=== PATIENT | female | born 1960 | race Caucasian/White ===

== ENCOUNTER 2017-03-17 00:23 | Day surgery (SDC) | payer OTHER ==
[~2017-03-17 00:23] MED LIST: ALBU90OI INH; ALBU90OI6 INH; BACL10 PO; CLOT1SO TOP; CYCL10 PO; DOC250 PO; DOXE10 PO; FOLI1; GABA600 PO; GEMF600; HYDPAM50 PO; HYDR1TAB94 PO; IBUP600 PO; MELO7.5; METTREX2.5 PO; MOMENI; MORP15ER PO; Mobic15 MG PO; Morphine Sulfat15 MG PO; OMEG1CAP30 PO; OMEP40CA12 PO; Omeprazole20 M1; PARO30 PO; Phentermine HCl15 MG PO; Premarin0.3 MG; Premarin0.3 MG PO; Remicade100 MG IV; TEMOVATE TOP; TRIA80TC TOP
[2017-12-16] MEDS ORDERED: CYCL10 PO (11:59)
[2017-12-16] MEDS ORDERED: KETO10 PO (11:59)
[2017-12-16] MEDS ORDERED: HYDR1TAB94 PO (11:59)
[2018-02-14] MEDS ORDERED: DICL75ER PO (10:07)
[2018-02-14] MEDS ORDERED: DOXE10 PO (10:08)
[2018-02-14] MEDS ORDERED: TRIA15CR3 (10:08)
== END 2017-03-17 16:40 | disposition home or self-care (01) ==
LOC: ATC 00:23
DX: L40.0 Psoriasis vulgaris (principal); Z79.899 Other long term (current) drug therapy
CPT/HCPCS: 96413; 96415; J1745; J7050; Q5102-ZB

== ENCOUNTER 2017-04-30 01:03 | Day surgery (SDC) | payer OTHER | END 2017-04-30 12:57 | disposition home or self-care (01) | LOC: ATC 01:03 | DX: L40.0 Psoriasis vulgaris (principal) | CPT/HCPCS: 96413; 96415; J1745; J7050; Q5102-ZB ==

== ENCOUNTER 2017-06-11 00:21 | Day surgery (SDC) | payer OTHER | END 2017-06-11 11:36 | disposition home or self-care (01) | LOC: ATC 00:21 | DX: L40.0 Psoriasis vulgaris (principal) | CPT/HCPCS: 96413; 96415; J1745; J7050 ==

== ENCOUNTER 2017-08-07 15:17 | Emergency (ER) | payer OTHER ==
[~2017-08-07] VITALS: Ht 167.6 cm; Wt 88.5 kg
[2017-08-07] MEDS ORDERED: Mobic15 MG PO (15:26)
[2017-08-07] MEDS ORDERED: Prinivil10 MG PO (15:26)
[2017-08-07] MEDS ORDERED: HYDPAM50 PO (15:27)
[2017-08-07] MEDS ORDERED: OMEPRAZOLE MAGN20 MG PO (15:27)
[2017-08-07 15:52] LABS: BASOPHILS ABSOLUTE AUTO 0.08 K/mm3 (0.00-0.23); BASOPHILS PERCENT AUTO 1 % (0-2); EOSINOPHILS PERCENT AUTO 2 % (0-6); Hematocrit 34.7 % (33.0-51.0); Hemoglobin 11.1 g/dL (11.5-16.0); IMMATURE GRAN ABSOLUTE AUTO 0.06 K/mm3 (0.00-0.10); IMMATURE GRAN PERCENT AUTO 1 % (0-1); LYMPHOCYTES ABSOLUTE AUTO 2.93 K/mm3 (0.84-5.20); LYMPHOCYTES PERCENT AUTO 23 % (21-46); MONOCYTES ABSOLUTE AUTO 1.31 K/mm3 (0.16-1.47); MONOCYTES PERCENT AUTO 10 % (4-13); Mean Corpuscular HGB 30.7 pg (26.0-34.0); Mean Corpuscular Volume 96 fL (80-100); NEUTROPHILS ABSOLUTE AUTO 8.29 K/mm3 (1.96-9.15); NEUTROPHILS PERCENT AUTO 64 % (41-73); Platelet Count 420 K/mm3 (150-400); RDW Coefficient Variation 14.8 % (11.7-14.2); Red Blood Cell Count 3.61 M/mm3 (3.80-5.20); White Blood Cell Count 12.87 K/mm3 (4.00-11.30)
[2017-08-07 16:05] LABS: Alanine Aminotransfer (ALT/SGP 70 U/L (12-78); Albumin, Blood 3.6 g/dL (3.4-5.0); Albumin/Globulin Ratio 1.1 (0.8-1.8); Alk Phos 142 U/L (50-136); Anion Gap 7 mmol/L (6-16); Aspartate Aminotrans (AST/SGOT 79 U/L (12-37); Bilirubin, Total 0.2 mg/dL (0.1-1.0); Blood Urea Nitrogen 22 mg/dL (8-24); Bun/Creatinine Ratio 15.7 (12.0-20.0); CO2, Blood 27 mmol/L (21-32); Calcium, Blood 8.4 mg/dL (8.5-10.1); Chloride, Blood 107 mmol/L (98-108); Globulin, Blood 3.4 g/dL (2.2-4.0); Glomerular Filtration Rate 41 (60-); Glucose, Blood 111 mg/dL (70-99); Potassium, Blood 4.1 mmol/L (3.5-5.5); Sodium, Blood 141 mmol/L (136-145)
[2017-08-07 16:37] LABS: Troponin I <0.015 ng/mL (0.000-0.040)
[2017-08-07 17:20] LABS: Source, Urine Clean Catch
[2017-08-07 17:25] LABS: Appearance, Urine Clear (Clear); Bilirubin, Urine Neg (Neg); Blood, Urine Neg (Neg); Color, Urine Yellow (P-Yellow); Glucose Qualitative, Urine Neg (Neg); Ketones, Urine Neg (Neg); Leukocyte Esterase, Urine 2+ (Neg); Nitrite, Urine Pos (Neg); Protein, Urine 2+ (Neg); Urobilinogen, Urine NORM (Normal)
[2017-08-07 17:35] LABS: Bacteria Many /hpf; Red Blood Cells, Urine 0-2 /hpf (0-2); Squamous Epithelial Cells Few /hpf (Few)
[2017-08-07] MEDS ORDERED: Bactrim Ds Tab1 EACH PO (18:00)
== END 2017-08-07 18:34 | disposition home or self-care (01) ==
LOC: ER 15:17
PROVIDERS: Emergency Medicine; Physician Assistant
DX: N39.0 Urinary tract infection, site not specified (principal); R55 Syncope and collapse; I10 Essential (primary) hypertension; K21.9 Gastro-esophageal reflux disease without esophagitis; E78.00 Pure hypercholesterolemia, unspecified; Z88.0 Allergy status to penicillin; Z79.899 Other long term (current) drug therapy
CPT/HCPCS: 36415; 80053; 81001; 84484; 85025; 87077; 87086; 87186; 93005; 93010; 96360; 96361; 99283; J7030

== ENCOUNTER 2017-09-02 14:44 | Emergency (ER) | payer OTHER ==
[~2017-09-02] VITALS: Ht 165.1 cm; Wt 89.4 kg
[~2017-09-02 14:44] MED LIST changes: +Bactrim Ds Tab1 EACH PO; +OMEPRAZOLE MAGN20 MG PO; +Prinivil10 MG PO
[2017-09-02] MEDS ORDERED: CYCL10 PO (15:28)
== END 2017-09-02 15:37 | disposition home or self-care (01) ==
LOC: ER 14:44
DX: M54.5 Low back pain (principal); Z88.0 Allergy status to penicillin; Z79.899 Other long term (current) drug therapy; Z79.891 Long term (current) use of opiate analgesic
CPT/HCPCS: 96372; 99283; J1885

== ENCOUNTER 2017-10-22 00:31 | Day surgery (SDC) | payer OTHER | END 2017-10-22 12:20 | disposition home or self-care (01) | LOC: ATC 00:31 | DX: L40.0 Psoriasis vulgaris (principal) | CPT/HCPCS: J1745; J7050 ==

== ENCOUNTER 2018-03-30 00:02 | Day surgery (SDC) | payer OTHER ==
[~2018-03-30 00:02] MED LIST changes: +DICL75ER PO; +KETO10 PO; +TRIA15CR3
== END 2018-03-30 11:31 | disposition home or self-care (01) ==
LOC: ATC 00:02
DX: L40.0 Psoriasis vulgaris (principal)
CPT/HCPCS: 96413; 96415; J1745; J7050

== ENCOUNTER 2018-05-12 05:20 | Day surgery (SDC) | payer OTHER | END 2018-05-12 16:20 | disposition home or self-care (01) | LOC: ATC 05:20 | DX: L40.0 Psoriasis vulgaris (principal) | CPT/HCPCS: 96413; 96415; J1745; J7050 ==

== ENCOUNTER 2018-06-22 00:30 | Day surgery (SDC) | payer OTHER | END 2018-06-22 16:37 | disposition home or self-care (01) | LOC: ATC 00:30 | DX: L40.0 Psoriasis vulgaris (principal); Z88.0 Allergy status to penicillin | CPT/HCPCS: 96413; 96415; J1745; J7050 ==

== ENCOUNTER → 2018-08-08 | Outpatient (CLI) | payer OTHER ==
[~2018-08-08] MED LIST changes: +BACI500TO TOP; +Cleocin HCl300 MG PO; +PERIDEX15 ML MM
== END ==
LOC: LAB UCHC 07:00 → LAB SHORT 07:00 → LAB 07:00 → EDSTATUS 08-05 12:50 → LAB FUT 08-05 12:50
DX: R19.7 Diarrhea, unspecified (principal)
CPT/HCPCS: 87493

== ENCOUNTER 2018-08-30 16:54 | Inpatient (IN) | payer OTHER ==
[~2018-08-30] VITALS: Ht 165.1 cm; Wt 95.7 kg
[~2018-08-30 16:54] MED LIST changes: +FLUC200 PO; -FOLI1; +FOLI1 PO; -GABA600 PO; -GEMF600; +GEMF600 PO; +Neurontin400 MG PO
[2018-08-30 17:26] LABS: Hematocrit 25.8 % (33.0-51.0); Hemoglobin 7.5 g/dL (11.5-16.0); Mean Corpuscular HGB 23.7 pg (26.0-34.0); Mean Corpuscular HGB Conc 29.1 g/dL (31.5-36.5); Mean Corpuscular Volume 81 fL (80-100); Mean Platelet Volume 11.1 fL (9.1-12.4); Platelet Count 259 K/mm3 (150-400); RDW Standard Deviation 66.9 fL (35.1-46.3); Red Blood Cell Count 3.17 M/mm3 (3.80-5.20); White Blood Cell Count 1.19 K/mm3 (4.00-11.30)
[2018-08-30 17:49] LABS: Albumin, Blood 2.5 g/dL (3.4-5.0); Albumin/Globulin Ratio 0.6 (0.8-1.8); Bilirubin, Total 0.2 mg/dL (0.1-1.0); Bun/Creatinine Ratio 8.9 (12.0-20.0); Calcium, Blood 8.5 mg/dL (8.5-10.1); Creatinine, Blood 2.71 mg/dL (0.40-1.00); Free Thyroxine 1.15 ng/dL (0.70-1.60); Magnesium, Blood 2.8 mg/dL (1.6-2.4); Potassium, Blood 3.7 mmol/L (3.5-5.5); Total Protein, Blood 6.5 g/dL (6.4-8.2)
[2018-08-30 17:53] LABS: Thyroid Stimulating Hormone 0.218 uIU/mL (0.360-4.800)
[2018-08-30 18:31] LABS: BASOPHILS PERCENT MAN 0 % (0-2); EOSINOPHILS ABSOLUTE MAN 0.32 K/mm3 (0.00-0.68); EOSINOPHILS PERCENT MAN 27 % (0-6); LYMPHOCYTES ABSOLUTE MAN 0.79 K/mm3 (0.84-5.20); LYMPHOCYTES PERCENT MAN 67 % (21-46); MONOCYTES ABSOLUTE MAN 0.01 K/mm3 (0.16-1.47); MONOCYTES PERCENT MAN 1 % (4-13); MYELOCYTE ABSOLUTE MAN 0.01 K/mm3 (0.00-0.00); MYELOCYTE PERCENT MAN 1 % (0-0); NEUTROPHILS ABSOLUTE MAN 0.04 K/mm3 (1.96-9.15); SEG NEUTROPHILS PERCENT MAN 4 % (41-73); TOTAL CELLS COUNTED 100
[2018-08-30 20:40] LABS: RETIC HGB EQUIVALENT 19.6 pg (28.20-36.60); RETICULOCYTE ABSOLUTE 0.0641 M/mm3 (0.0200-0.1100); RETICULOCYTE COUNT PERCENT 2.06 % (0.50-2.50)
[2018-08-30 20:45] LABS: Source, Urine Clean Catch
[2018-08-30 20:48] LABS: Blood, Urine Neg (Neg); Glucose Qualitative, Urine Neg (Neg); Ketones, Urine 1+ (Neg); Leukocyte Esterase, Urine 1+ (Neg); Nitrite, Urine Neg (Neg); Protein, Urine 2+ (Neg); Urobilinogen, Urine 1+ (Normal)
[2018-08-30 20:49] LABS: Bilirubin, Urine 1+ (Neg)
[2018-08-30 20:52] LABS: Percent Saturation 3.9 % (15.0-50.0)
[2018-08-30 20:57] LABS: International Normalized Ratio 1.32; Prothrombin Time Results 13.6 Sec (9.7-11.5)
[2018-08-30 21:01] LABS: Uric Acid, Blood 6.5 mg/dL (2.6-6.0)
[2018-08-30 21:02] LABS: U Amphetamine Screen Not Detected; U Methamphetamine Screen Not Detected; U Opiates Screen DETECTED
[2018-08-30 21:03] LABS: U Barbituate Screen Not Detected; U Benzodiazapine Screen Not Detected; U Buprenorphine Screen Not Detected; U Cannabinoids Screen Not Detected; U Cocaine Screen Not Detected; U Methadone Screen Not Detected; U Oxycodone Screen Not Detected; U Phencyclidine Screen Not Detected; U Propoxyphene Screen Not Detected
[2018-08-30 21:04] LABS: Appearance, Urine Hazy (Clear); Color, Urine Yellow (P-Yellow)
[2018-08-30 21:06] LABS: Red Blood Cells, Urine Not Seen /hpf (0-2); Squamous Epithelial Cells Few /hpf (Few)
[2018-08-30 21:08] LABS: Bacteria Few /hpf
[2018-08-30 21:54] LABS: Triiodothyronine, Free 1.06 pg/mL (2.18-3.98)
[2018-08-30 21:56] LABS: Phosphorus, Blood 4.2 mg/dL (2.5-4.9)
[2018-08-30 22:17] LABS: Hematocrit 27.1 % (33.0-51.0); Hemoglobin 7.7 g/dL (11.5-16.0)
--- NOTE | 2018-08-31 00:15 | NUR ---
AT 2340 PT ARRIVED TO ICU 12 FROM ER. ACCOMPANIED BY EXTENSION SERVICE ADVISOR VIVI. 1 UNIT OF PRBC'S BROUGHT WITH PT AND STARTED RIGHT AWAY. BLOOD PRESSURE 60'S/40'S. CALLED DR. ALEXANDRA AND LEVOPHED ORDERED. NARCAN WAS GIVEN AND PT IMMEDIATELY STARTED TWITCHING WITH FULL BODY. PT WAS A/O TO PERSON, PLACE, AND DATE WHEN SHE ARRIVED BUT AFTER NARCAN SHE IS CONFUSED AND UNABLE TO FOLLOW COMMANDS. DAUGHTER AT BEDSIDE SAID THIS WAS A SIMILAR REACTION THAT SHE HAD IN ER AFTER NARCAN. BP IMPROVES WELL.
[2018-08-31 01:19] LABS: Stool Occult Blood Guaiac 1 Neg (Neg)
--- NOTE | 2018-08-31 01:38 | NUR ---
PT RESTING QUIETLY NOW. STARTED LEVOPHED AT 4MCG/MIN. CVP WAS 20. DAUGHTER LEFT FOR A LITTLE BIT BUT WILL BE BACK.
[2018-08-31] MEDS ORDERED: Hydrocodone-Ap1 EA23 PO (02:16)
[2018-08-31] MEDS ORDERED: FLUC200 PO (02:23)
[2018-08-31 04:22] LABS: Hematocrit 26.1 % (33.0-51.0); Hemoglobin 7.7 g/dL (11.5-16.0); Mean Corpuscular HGB 24.3 pg (26.0-34.0); Mean Corpuscular HGB Conc 29.5 g/dL (31.5-36.5); Mean Corpuscular Volume 82 fL (80-100); Mean Platelet Volume 11.4 fL (9.1-12.4); NRBC ABSOLUTE 0.03 K/mm3 (0.00-0.02); NRBC Auto 2.6 /100 WBC (0.0-0.2); Platelet Count 367 K/mm3 (150-400); RDW Coefficient Variation 21.4 % (11.7-14.2); RDW Standard Deviation 63.3 fL (35.1-46.3); Red Blood Cell Count 3.17 M/mm3 (3.80-5.20); White Blood Cell Count 1.15 K/mm3 (4.00-11.30)
[2018-08-31 04:40] LABS: Albumin, Blood 1.9 g/dL (3.4-5.0); Albumin/Globulin Ratio 0.6 (0.8-1.8); Bilirubin, Total 0.3 mg/dL (0.1-1.0); Bun/Creatinine Ratio 10.6 (12.0-20.0); Calcium, Blood 7.4 mg/dL (8.5-10.1); Creatinine, Blood 2.07 mg/dL (0.40-1.00); Globulin, Blood 3.3 g/dL (2.2-4.0); Potassium, Blood 3.5 mmol/L (3.5-5.5); Total Protein, Blood 5.2 g/dL (6.4-8.2)
[2018-08-31 04:51] LABS: BAND PERCENT MAN 4 % (0-8); BASOPHILS ABSOLUTE MAN 0.01 K/mm3 (0.00-0.23); BASOPHILS PERCENT MAN 1 % (0-2); EOSINOPHILS ABSOLUTE MAN 0.17 K/mm3 (0.00-0.68); EOSINOPHILS PERCENT MAN 15 % (0-6); LYMPHOCYTES ABSOLUTE MAN 0.59 K/mm3 (0.84-5.20); LYMPHOCYTES PERCENT MAN 52 % (21-46); MONOCYTES ABSOLUTE MAN 0.31 K/mm3 (0.16-1.47); MONOCYTES PERCENT MAN 27 % (4-13); NEUTROPHILS ABSOLUTE MAN 0.05 K/mm3 (1.96-9.15); SEG NEUTROPHILS PERCENT MAN 1 % (41-73); TOTAL CELLS COUNTED 100
--- NOTE | 2018-08-31 06:25 | NUR ---
SUMMARY PT RESTING IN BED. A/O TO PERSON, PLACE, EVENT, AND TIME. ABLE TO USE THE BEDPAN. PT WAS CONFUSED AND THRASHING AROUND EARLIER IN THE NIGHT AFTER RECEIVING NARCAN. PT HAS TWITCHING SPASMS OF WHOLE BODY. PT STATES THIS HAS BEEN HAPPENING FOR AWHILE AT HOME ALONG WITH MUSCLE WEAKNESS. RECEIVED ONE UNIT OF PRBC'S. ON LEVOPHED AT 4 MCG/MIN FOR HYPOTENSION. ATTEMPTED TO TITRATE DOWN BUT BP DROPS QUICKLY. NO SIGN OF DISTRESS AT THE MOMENT.
--- NOTE | 2018-08-31 08:04 | NUR ---
ASSUMED CARE ASSUMED CARE OF PT AT 0700. REPORT RECEIVED FROM SABAS WEBB. PT SLEEPING, AROUSES EASILY TO VERBAL STIMULUS. PT ORIENTED X3 WHEN AWAKE. PT NOTED TO HAVE SIGNIFICANT TWITCHING OF UPPER AND LOWER EXTREMITIES EVERY COUPLE OF MINUTES. PT STATES THIS IS NOT NORMAL FOR HER AND HAS BEEN GOING ON "FOR A COUPLE OF DAYS". PT DENIES ANY PAIN, NAUSEA OR DYSPNEA. PUPILS 6MM CAIT, EQUAL AND REACTIVE TO LIGHT. MONITOR SHOWS SINUS RHYTHM WITH HR 60'S. BP 90-100 SYSTOLIC WITH LEVOPHED GTT 2MCG/MIN - PLAN TO TITRATE TO MAINTAIN MAP >65. BT'S VERY HYPOACTIVE T/O. PT DENIES ABDOMINAL PAIN WITH PALPATION. WEBBER CATH IN PLACE DRAINING JAVAD URINE TO GRAVITY. SKIN OVERALL C/D/I - NOTED CHRONIC DEFORMITY OF RIGHT LOWER LEG. PT HAS LEFT SUBCLAVIAN CL WITH LEVOPHED GTT, NS AT 150ML/HR. PIV X2 SL. PT'S DAUGHTER CONCHITA AT BEDSIDE. CALL LIGHT WITHIN REACH OF PT. WILL CONTINUE TO MONITOR PT CLOSELY.
--- NOTE | 2018-08-31 08:36 | NUR ---
LEVOPHED PLACED ON STANDBY AT THIS TIME.
--- NOTE | 2018-08-31 09:00 | NUR ---
DR. MATTHEW CASTRO ROUNDED ON PT. DISCUSSED PLAN OF CARE WITH PT AND PT'S DAUGHTER AT BEDSIDE. NEW ORDERS RECEIVED FOR AN ADDITIONAL UNIT OF BLOOD, ALBUMIN AND CALCIUM.
[2018-08-31 09:01] LABS: Performing Lab SYMBIODX; Test Name FLOW
[2018-08-31] MEDS ORDERED: DOXE10 PO (10:53)
[2018-08-31 11:01] LABS: PCO2 Arterial 34.5 mmHg (35-45); PO2 Arterial 88.8 mmHg (80-100); pH Blood Arterial 7.36 (7.35-7.45)
[2018-08-31] MEDS ORDERED: ALBU90OI61 INH (11:02)
--- NOTE | 2018-08-31 14:48 | NUR ---
PHYSICAL THERAPY HERE WORKING WITH PT.
[2018-08-31 18:22] LABS: Hematocrit 26.9 % (33.0-51.0); Hemoglobin 8.4 g/dL (11.5-16.0); Mean Corpuscular HGB 25.1 pg (26.0-34.0); Mean Corpuscular HGB Conc 31.2 g/dL (31.5-36.5); Mean Corpuscular Volume 80 fL (80-100); Mean Platelet Volume 10.7 fL (9.1-12.4); NRBC Auto 5.4 /100 WBC (0.0-0.2); Platelet Count 452 K/mm3 (150-400); RDW Coefficient Variation 21.2 % (11.7-14.2); RDW Standard Deviation 60.4 fL (35.1-46.3); Red Blood Cell Count 3.35 M/mm3 (3.80-5.20); White Blood Cell Count 1.85 K/mm3 (4.00-11.30)
--- NOTE | 2018-08-31 18:41 | NUR ---
SHIFT SUMMARY PT CONTINUES TO BE ALERT AND ORIENTED, VISITING WITH FAMILY MEMBERS AT BEDSIDE T/O SHIFT. VITALS CONTINUE TO BE STABLE - LEVOPHED OFF SINCE ~0900 THIS MORNING WITH MAP MAINTAINING >65. PT HAD A COUPLE LOOSE BROWN BM'S - STOOL SENT FOR CULTURE. PT TOLERATING CLEAR LIQUID DIET WELL. WEBBER PUT OUT 400 ML DARK YELLOW URINE TO GRAVITY. NS CONTINUES TO INFUSE AT 150ML/HR TO LEFT SUBCLAVIAN CL. PT CONTINUES TO HAVE INTERMITTENT EXTREMITY TWITCHING WHEN AWAKE - NO TWITCHING NOTED WHEN PT SLEEPING. WILL CONTINUE TO MONITOR PT AND GIVE HANDOFF REPORT TO ONCOMING RN WHEN AVAILABLE.
[2018-08-31 19:19] LABS: BAND PERCENT MAN 12 % (0-8); BASOPHILS PERCENT MAN 0 % (0-2); EOSINOPHILS ABSOLUTE MAN 0.03 K/mm3 (0.00-0.68); EOSINOPHILS PERCENT MAN 2 % (0-6); LYMPHOCYTES PERCENT MAN 38 % (21-46); METAMYELOCYTE ABSOLUTE MAN 0.07 K/mm3 (0.00-0.00); METAMYELOCYTE PERCENT MAN 4 % (0-0); MONOCYTES ABSOLUTE MAN 0.55 K/mm3 (0.16-1.47); MONOCYTES PERCENT MAN 30 % (4-13); MYELOCYTE ABSOLUTE MAN 0.03 K/mm3 (0.00-0.00); MYELOCYTE PERCENT MAN 2 % (0-0); NEUTROPHILS ABSOLUTE MAN 0.44 K/mm3 (1.96-9.15); SEG NEUTROPHILS PERCENT MAN 12 % (41-73); TOTAL CELLS COUNTED 50
--- NOTE | 2018-08-31 19:56 | NUR ---
PT RESTING IN BED. PT IS A/O X4. STILL HAS SOME MUSCLE TWITCHING BUT HAS IMPROVED SINCE LAST NIGHT. PT USED THE BEDPAN AND HAS LIQUID BROWN STOOL. DAUGHTER AT BEDSIDE. NO SIGN OF DISTRESS.
--- NOTE | 2018-09-01 05:55 | NUR ---
SUMMARY PT RESTING IN BED. A/O X4. C/O PAIN IN BACK AND HIPS. GAVE FENTANYL PT STATES TYLENOL DOES NOT WORK FOR HER. PT HAS BEEN INCONTINENT OF STOOL DURING THE NIGHT. MOVES SELF AROUND IN BED WITHOUT DIFFICULTY. VSS. NO SIGN OF DISTRESS. NO ACUTE CHANGES.
--- NOTE | 2018-09-01 07:45 | NUR ---
INITIAL ASSESSMENT PATIENT RESTING QUIETLY IN BED, WATCHING TV UPON ENTERING ROOM. PATIENT PLEASANT AND COOPERATIVE. PATIENT ALERT AND ORIENTED X 4, AFEBRILE. PATIENT STATES SHE HAS CHRONIC HIP, BACK AND LEG PAIN. PATIENT ALSO COMPLAINS OF SORE THROAT. PATIENT ON CLEAR LIQUID DIET. PATIENT DOES NOT HAVE HER DENTURES WITH HER "WAS TOLD NOT TO WEAR THEM WHILE HER ORAL THRUSH WAS BEING TREATED". PATIENT ASKED IF SHE FELT LIKE SHE COULD TOLERATED SOFT DIET WITHOUT HER DENTURES AND SHE STATED THAT SHE COULD EAT A SOFT DIET BUT DIDN'T KNOW IF HER THROAT COULD TOLERATE IT BECAUSE OF HOW SORE IT IS. PATIENT WEAK. PATIENT HAS OLD INJURY TO R LEG THAT MAKES THE LEMUS BONE CURVE ANTERIORLY. PATIENT DECREASED FROM 2 L NC TO RA AND REMAINS SATTING 90% AND GREATER. PATIENT HAS MOIST, PRODUCTIVE COUGH, PRODUCING SMALL AMOUNT OF THICK, YELLOW SPUTUM. LUNGS CLEAR IN UPPER LOBES AND COARSE IN LOWER LOBES. PATIENT IN SR, HR 70S TO 80S. BP STABLE. SCDS IN PLACE. ABDOMEN MILDLY DISTENDED, SOFT, TENDER, WITH NORMOACTIVE BS. PATIENT HAS BEEN HAVING LIQUID STOOLS. WEBBER REMOVED THIS AM. CLEAN ATTENDS IN PLACE. URINE DARK YELLOW IN COLOR. NS INFUSING AT 150 MLS/ HOUR. BED LOW, CALL LIGHT IN REACH. WILL CONTINUE TO MONITOR PATIENT FREQUENTLY THROUGHOUT SHIFT.
[2018-09-01 08:24] LABS: Albumin, Blood 2.1 g/dL (3.4-5.0); Albumin/Globulin Ratio 0.7 (0.8-1.8); Bilirubin, Total 0.3 mg/dL (0.1-1.0); Bun/Creatinine Ratio 15.8 (12.0-20.0); Calcium, Blood 8.2 mg/dL (8.5-10.1); Creatinine, Blood 1.33 mg/dL (0.40-1.00); Globulin, Blood 3.2 g/dL (2.2-4.0); Potassium, Blood 3.9 mmol/L (3.5-5.5); Total Protein, Blood 5.3 g/dL (6.4-8.2)
[2018-09-01 08:30] LABS: Hematocrit 29.4 % (33.0-51.0); Hemoglobin 9.3 g/dL (11.5-16.0); Mean Corpuscular HGB 25.1 pg (26.0-34.0); Mean Corpuscular HGB Conc 31.6 g/dL (31.5-36.5); Mean Corpuscular Volume 80 fL (80-100); Mean Platelet Volume 10.5 fL (9.1-12.4); NRBC ABSOLUTE 0.13 K/mm3 (0.00-0.02); NRBC Auto 1.9 /100 WBC (0.0-0.2); Platelet Count 572 K/mm3 (150-400); RDW Coefficient Variation 22.2 % (11.7-14.2); RDW Standard Deviation 61.4 fL (35.1-46.3); White Blood Cell Count 6.86 K/mm3 (4.00-11.30)
[2018-09-01 09:03] LABS: BAND PERCENT MAN 9 % (0-8); BASOPHILS PERCENT MAN 0 % (0-2); EOSINOPHILS ABSOLUTE MAN 0.13 K/mm3 (0.00-0.68); EOSINOPHILS PERCENT MAN 2 % (0-6); LYMPHOCYTES % ATYPICAL MANUAL 1 % (0-0); LYMPHOCYTES PERCENT MAN 21 % (21-46); METAMYELOCYTE ABSOLUTE MAN 0.48 K/mm3 (0.00-0.00); METAMYELOCYTE PERCENT MAN 7 % (0-0); MONOCYTES ABSOLUTE MAN 1.02 K/mm3 (0.16-1.47); MONOCYTES PERCENT MAN 15 % (4-13); NEUTROPHILS ABSOLUTE MAN 3.43 K/mm3 (1.96-9.15); SEG NEUTROPHILS PERCENT MAN 41 % (41-73); TOTAL CELLS COUNTED 100
[2018-09-01 09:04] LABS: MYELOCYTE ABSOLUTE MAN 0.27 K/mm3 (0.00-0.00); MYELOCYTE PERCENT MAN 4 % (0-0)
--- NOTE | 2018-09-01 09:47 | NUR ---
PT IN ROOM WORKING WITH PATIENT.
--- NOTE | 2018-09-01 12:38 | NUR ---
PATIENT SITTING UP EATING LUNCH IN BED. NO COMPLAINTS. AFEBRILE. PATIENT REMAINS ALERT AND ORIENTED X 4. PATIENT 1 PERSON ASSIST WITH WALKER. PATIENT USES WALKER AT HOME. PATIENT REMAINS SATTING 90% AND GREATER ON RA. PATIENT COUGHING UP MODERATE AMOUNT OF THICK, YELLOW SPUTUM. PATIENT REMAINS IN SR, HR 70S TO 80S. BP STABLE. PATIENT HAS MECHANICAL SOFT DIET FOR LUNCH. PATIENT HAS NOT YET VOIDED SINCE WEBBER REMOVAL. WILL BLADDER SCAN AT 1400 IF STILL HAS NOT VOIDED. CENTRAL LINE DC'D. NS INFUSING AT 100 MLS/ HOUR. NO OTHER ACUTE CHANGES TO NOTE ON AT THIS TIME. WILL CONTINUE TO MONITOR.
--- NOTE | 2018-09-01 14:25 | NUR ---
OT IN WORKING WITH PATIENT.
--- NOTE | 2018-09-01 14:42 | NUR ---
SHIFT SUMMARY PATIENT HAS REMAINED ALERT AND ORIENTED THIS SHIFT. AFEBRILE. PATIENT WEAK BUT IS GAINING STRENGTH. PATIENT 1 PERSON ASSIST WITH FWW. PATIENT HAS COMPLAINED OF CHRONIC PAIN IN BACK, LEGS AND HIPS. PATIENT BEING GIVEN PRESCRIBED PAIN MEDICATIONS. PATIENT DECREASED FROM 2 L NC TO RA AT BEGINNING OF THE SHIFT AND HAS REMAINED SATTING 90% AND GREATER. PATIENT HAS BEEN COUGHING UP MODERATE AMOUNTS OF THICK, YELLOW SPUTUM. PATIENT HAS REMAINED IN SR, HR 60S TO 80S. BP HAS REMAINED STABLE. ABDOMEN REMAINS MILDLY DISTENDED, SOFT, TENDER, WITH NORMOACTIVE BS. PATIENT HAS HAD 3 LIQUID STOOLS THIS SHIFT. PATIENT INCREASED TO MECHANICAL SOFT DIET FROM CLEAR LIQUID AND IS TOLERATING WELL. WEBBER REMOVED THIS AM. PATIENT IS NOW VOIDING DARK YELLOW URINE INTO BSC WITH NURSE ASSISTANCE. NS INFUSING AT 100 MLS/ HOUR. PATIENT OOB TO CHAIR THIS SHIFT AND ALSO RECEIVED COMPLETE BED BATH. PT AND OT HAVE BOTH SEEN PATIENT. PATIENT'S DAUGHTER ALSO HERE TO CHECK IN. PATIENT HAS NO COMPLAINTS AT THIS TIME. PATIENT WILL BE TRANSFERRING TO MEDICAL FLOOR, ROOM 363 SHORTLY. PATIENT'S DAUGHTER, SCOTT, HAS TRIED BEEN NOTIFIED- DID NOT ANSWER AND HAS FULL INBOX. REPORT HAS BEEN GIVEN TO ASSUMING MEDICAL FLOOR RN.
[2018-09-01 15:13] LABS: Result SEE LABOUT RESULTS
--- NOTE | 2018-09-01 15:30 | NUR ---
PATIENT TRANSFERRED TO MEDICAL FLOOR BY DIRECTOR PROFESSIONAL SERVICES.
--- NOTE | 2018-09-01 19:20 | NUR ---
SHIFT SUMMARY PATIENT A&O. C/O CHRONIC PAIN TO HIPS/BACK, RN MEDICATED PER E MAY. DENIES SOB OR NAUSEA. ON RA. PATIENT REPOSITIONS SELF IN BED. SCDS ON. FLUIDS RUNNING. BED ALARM IS IN PLACE. NO ACUTE CHANGES. REPORT GIVEN TO GRADUATE RESEARCH ASSISTANT RN.
--- NOTE | 2018-09-02 04:21 | NUR ---
SHIFT SUMMARY: 58 Y/O FEMALE RESTED COMFORTABLY ALL EVENING. PT FELT RELIEF FROM BACK PAIN WITH MS CONTIN 15 MG PO. PT DENIES NAUSEA. PT HAPPY AND COOPERATIVE DURING ASSESSMENT. PTS BILATERAL HAND ARCHITECTURE INTERN/FOOT PUSH AND PULLS WEAK AND EQUAL. PTS BED LOW POSITION, CALL LIGHT AT SIDE.
[2018-09-02 04:42] LABS: Hematocrit 34.3 % (33.0-51.0); Hemoglobin 10.9 g/dL (11.5-16.0); Mean Corpuscular HGB 24.8 pg (26.0-34.0); Mean Corpuscular HGB Conc 31.8 g/dL (31.5-36.5); Mean Corpuscular Volume 78 fL (80-100); Mean Platelet Volume 10.1 fL (9.1-12.4); NRBC ABSOLUTE 0.21 K/mm3 (0.00-0.02); NRBC Auto 1.1 /100 WBC (0.0-0.2); Platelet Count 654 K/mm3 (150-400); RDW Coefficient Variation 23.3 % (11.7-14.2); RDW Standard Deviation 62.6 fL (35.1-46.3); Red Blood Cell Count 4.39 M/mm3 (3.80-5.20); White Blood Cell Count 18.73 K/mm3 (4.00-11.30)
[2018-09-02 05:04] LABS: Albumin, Blood 1.9 g/dL (3.4-5.0); Albumin/Globulin Ratio 0.6 (0.8-1.8); Bilirubin, Total 0.3 mg/dL (0.1-1.0); Bun/Creatinine Ratio 18.6 (12.0-20.0); Calcium, Blood 8.6 mg/dL (8.5-10.1); Creatinine, Blood 1.29 mg/dL (0.40-1.00); Globulin, Blood 3.3 g/dL (2.2-4.0); Potassium, Blood 3.5 mmol/L (3.5-5.5); Total Protein, Blood 5.2 g/dL (6.4-8.2)
[2018-09-02 05:35] LABS: BAND PERCENT MAN 3 % (0-8); BASOPHILS PERCENT MAN 0 % (0-2); EOSINOPHILS ABSOLUTE MAN 0.56 K/mm3 (0.00-0.68); EOSINOPHILS PERCENT MAN 3 % (0-6); LYMPHOCYTES ABSOLUTE MAN 3.37 K/mm3 (0.84-5.20); LYMPHOCYTES PERCENT MAN 18 % (21-46); METAMYELOCYTE ABSOLUTE MAN 1.49 K/mm3 (0.00-0.00); METAMYELOCYTE PERCENT MAN 8 % (0-0); MONOCYTES ABSOLUTE MAN 1.49 K/mm3 (0.16-1.47); MONOCYTES PERCENT MAN 8 % (4-13); MYELOCYTE ABSOLUTE MAN 2.06 K/mm3 (0.00-0.00); MYELOCYTE PERCENT MAN 11 % (0-0); NEUTROPHILS ABSOLUTE MAN 9.73 K/mm3 (1.96-9.15); SEG NEUTROPHILS PERCENT MAN 49 % (41-73); TOTAL CELLS COUNTED 65
--- NOTE | 2018-09-02 08:00 | NUR ---
PT PLEASANT COOP A/O. STATES PAIN IN HIP AND BACK. FIBROMYALGIA. MED PER EMAR. H/R REG, NO MURMER NOTED. NO TELE. LUNGS CLEAR, PT STATES YELLOW GREEN THICK SPUTUM OCCATIONAL COUGH. ON R.A. RESP EASY, UNLABORED. BT X4 LAST BM TODAY. STATES DIARRHEA LAST 2 MONTHS OR SO. SAMPLE TAKEN YEST. SPOKE TO DR CASTRO, SHE AWARE. VOIDS PER BATHROOM. SBA. FWW. BED IN LOW POSITION, CALL LITE IN REACH, CALLS APPROP
--- NOTE | 2018-09-02 18:27 | NUR ---
PT EATING AND DRINKING. FERMIN DC IV FLUIDS PER DR CASTRO
--- NOTE | 2018-09-02 18:46 | NUR ---
PT PLEASANT TODAY. AMBULATED TO SHOWER TODAY. STATES STOOD IN SHOWER FOR LONGER TIME TO LOOSEN FLEM. STATES DID HELP. ORDERS FOR [facility] START THIS ASHISH. IV FLUIDS STOPPED THIS ASHISH. NO OTHER CONCERNS AT THIS TIME. BED IN LOW POSITION ,CALL LITE IN REACH, CALLS APPROP
--- NOTE | 2018-09-03 04:29 | NUR ---
SHIFT SUMMARY: 58 Y/O FEMALE RESTED COMFORTABLY ALL SHIFT. PT HAD OCCASIONAL NON PRODUCTIVE COUGH WITH CEPACOL LOZENGE GIVEN WITH RELIEF FELT. PT ALERT AND ORIENTED X 4. PT HAD OVERALL UNEVENTALL NIGHT. PTS BED LOW POSITION, CALL LIGHT AT SIDE.
[2018-09-03 04:51] LABS: Hematocrit 32.4 % (33.0-51.0); Hemoglobin 10.3 g/dL (11.5-16.0); Mean Corpuscular HGB 24.6 pg (26.0-34.0); Mean Corpuscular HGB Conc 31.8 g/dL (31.5-36.5); Mean Corpuscular Volume 77 fL (80-100); Mean Platelet Volume 9.9 fL (9.1-12.4); NRBC ABSOLUTE 0.15 K/mm3 (0.00-0.02); NRBC Auto 0.4 /100 WBC (0.0-0.2); Platelet Count 498 K/mm3 (150-400); RDW Coefficient Variation 24.1 % (11.7-14.2); RDW Standard Deviation 65.1 fL (35.1-46.3); Red Blood Cell Count 4.19 M/mm3 (3.80-5.20)
[2018-09-03 05:20] LABS: Albumin, Blood 1.7 g/dL (3.4-5.0); Albumin/Globulin Ratio 0.5 (0.8-1.8); Bilirubin, Total 0.4 mg/dL (0.1-1.0); Bun/Creatinine Ratio 17.3 (12.0-20.0); Calcium, Blood 8.5 mg/dL (8.5-10.1); Creatinine, Blood 1.1 mg/dL (0.40-1.00); Globulin, Blood 3.3 g/dL (2.2-4.0); Potassium, Blood 4.2 mmol/L (3.5-5.5)
[2018-09-03 05:35] LABS: BAND PERCENT MAN 12 % (0-8); BASOPHILS PERCENT MAN 0 % (0-2); EOSINOPHILS PERCENT MAN 0 % (0-6); LYMPHOCYTES ABSOLUTE MAN 3.03 K/mm3 (0.84-5.20); LYMPHOCYTES PERCENT MAN 9 % (21-46); METAMYELOCYTE ABSOLUTE MAN 3.03 K/mm3 (0.00-0.00); METAMYELOCYTE PERCENT MAN 9 % (0-0); MONOCYTES ABSOLUTE MAN 3.03 K/mm3 (0.16-1.47); MONOCYTES PERCENT MAN 9 % (4-13); MYELOCYTE ABSOLUTE MAN 2.35 K/mm3 (0.00-0.00); MYELOCYTE PERCENT MAN 7 % (0-0); NEUTROPHILS ABSOLUTE MAN 22.24 K/mm3 (1.96-9.15); SEG NEUTROPHILS PERCENT MAN 54 % (41-73); TOTAL CELLS COUNTED 100
[2018-09-03 10:50] LABS: Adenovirus F 40/41 Not Detected (NOT DETECT); Astrovirus Not Detected (NOT DETECT); Campylobacter Sp Not Detected (NOT DETECT); Cryptosporidium Not Detected (NOT DETECT); Cyclospora Cayetanensis Not Detected (NOT DETECT); E. Coli O157 Not Detected (NOT DETECT); Entamoeba Histolytica Not Detected (NOT DETECT); Enteroaggregative E. coli-EAEC Not Detected (NOT DETECT); Enteropathogenic E. coli-EPEC Not Detected (NOT DETECT); Enterotoxigenic E. coli-ETEC Not Detected (NOT DETECT); Giardia Lamblia Not Detected (NOT DETECT); Norovirus GI/GII Not Detected (NOT DETECT); Plesiomonas Shigelloides Not Detected (NOT DETECT); Rotavirus A Not Detected (NOT DETECT); Salmonella Sp Not Detected (NOT DETECT); Sapovirus Not Detected (NOT DETECT); Shiga Toxin-prod E. coli-STEC Not Detected (NOT DETECT); Shigella/Enteroin E. coli-EIEC Not Detected (NOT DETECT); Vibrio Cholerae Not Detected (NOT DETECT); Vibrio Sp Not Detected (NOT DETECT); Yersinia Enterocolitica Not Detected (NOT DETECT)
--- NOTE | 2018-09-03 17:32 | NUR ---
PT AOX4 AND COOPERATIVE OF CARE. PT RESTS IN BED MOST OF THE DAY, BUT DOES A ONE PERSON ASSIST TO RESTROOM. STOOL TODAY WAS COLLECTED AND FOUND POSITIVE FOR CDIFF. PT PUT ON ISOLATION PRECAUTIONS. BACK PAIN TREATED PER EMAR, NO DISTRESS NOTED AT THIS TIME.
--- NOTE | 2018-09-04 04:51 | NUR ---
SHIFT SUMMARY: 58 Y/O FEMALE RESTED COMFORTABLY ALL SHIFT. PT HAD PAIN RELIEF WITH MS CONTIN 15 MG PO GIVEN FOR GENERALIZED ACHE. PT ABLE AMBULATE BATHROOM AND BACK WITH GAIT SLOW AND STEADY VIA WALKER. PT DENIES NAUSEA. PTS BED LOW POSITION, CALL LIGHT AT SIDE.
[2018-09-04 04:57] LABS: Hemoglobin 10.5 g/dL (11.5-16.0); Mean Corpuscular HGB Conc 31.8 g/dL (31.5-36.5); Mean Corpuscular Volume 79 fL (80-100); Mean Platelet Volume 9.8 fL (9.1-12.4); NRBC ABSOLUTE 0.11 K/mm3 (0.00-0.02); NRBC Auto 0.2 /100 WBC (0.0-0.2); Platelet Count 481 K/mm3 (150-400); RDW Coefficient Variation 24.4 % (11.7-14.2); RDW Standard Deviation 67.3 fL (35.1-46.3); White Blood Cell Count 45.07 K/mm3 (4.00-11.30)
[2018-09-04 05:16] LABS: Alanine Aminotransfer (ALT/SGP 10 U/L (12-78); Albumin, Blood 1.7 g/dL (3.4-5.0); Albumin/Globulin Ratio 0.5 (0.8-1.8); Alk Phos 119 U/L (50-136); Anion Gap 7 mmol/L (6-16); Aspartate Aminotrans (AST/SGOT 25 U/L (12-37); Bilirubin, Total 0.3 mg/dL (0.1-1.0); Blood Urea Nitrogen 17 mg/dL (8-24); Bun/Creatinine Ratio 17.1 (12.0-20.0); CO2, Blood 23 mmol/L (21-32); Calcium, Blood 7.9 mg/dL (8.5-10.1); Chloride, Blood 108 mmol/L (98-108); Globulin, Blood 3.1 g/dL (2.2-4.0); Glomerular Filtration Rate >60 (60-); Glucose, Blood 86 mg/dL (70-99); Magnesium, Blood 1.5 mg/dL (1.6-2.4); Potassium, Blood 3.6 mmol/L (3.5-5.5); Sodium, Blood 138 mmol/L (136-145); Total Protein, Blood 4.8 g/dL (6.4-8.2)
[2018-09-04 05:57] LABS: BASOPHILS PERCENT MAN 0 % (0-2); EOSINOPHILS ABSOLUTE MAN 0.45 K/mm3 (0.00-0.68); EOSINOPHILS PERCENT MAN 1 % (0-6); LYMPHOCYTES ABSOLUTE MAN 7.21 K/mm3 (0.84-5.20); LYMPHOCYTES PERCENT MAN 16 % (21-46); METAMYELOCYTE PERCENT MAN 2 % (0-0); MONOCYTES PERCENT MAN 6 % (4-13); MYELOCYTE ABSOLUTE MAN 0.45 K/mm3 (0.00-0.00); MYELOCYTE PERCENT MAN 1 % (0-0); NEUTROPHILS ABSOLUTE MAN 31.99 K/mm3 (1.96-9.15); SEG NEUTROPHILS PERCENT MAN 71 % (41-73); TOTAL CELLS COUNTED 100
[2018-09-04 06:53] LABS: PROMYELOCYTE ABSOLUTE MAN 1.35 K/mm3 (0.00-0.00); PROMYELOCYTE PERCENT MAN 3 % (0-0)
--- NOTE | 2018-09-04 17:26 | NUR ---
SHIFT SUMMARY. A&OX4, SBA TO BATHROOM. PT CONTINUES WITH LOOSE/LIQUID STOOLS. PT REPORTS GENERALIZED PAIN THAT IS MANAGED WELL WITH CURRENT ORDERS. PT DENIES N/V, SOB. PT WITH REPORT OF BLOATING, DR. CASTRO STARTED SIMETHACONE THIS AFTERNOON. NO NEW CHANGES OR CONCERNS.
--- NOTE | 2018-09-05 04:33 | NUR ---
SHIFT SUMMARY: 58 Y/O FEMALE RESTED COMFORTABLY ALL SHIFT. PT HAPPY AND COOPERATIVE AND REQUIRED ONLY ONE PRN PAIN MEDICATION LAST NIGHT. PT WAS ABLE TO TRANSFER AND AMBULATE VIA WALKER TO BATHROOM AND BACK. PT CONTINUES TO BE ON CONTACT ISOLATION DUE POSITIVE C-DIFF AND IS TOLERATING PO VANCOMYCIN. PT DENIES NAUSEA. PTS BED LOW POSITION, CALL LIGHT AT SIDE.
[2018-09-05 04:46] LABS: Hematocrit 31.3 % (33.0-51.0); Mean Corpuscular HGB 24.9 pg (26.0-34.0); Mean Corpuscular HGB Conc 31.9 g/dL (31.5-36.5); Mean Corpuscular Volume 78 fL (80-100); Mean Platelet Volume 10.2 fL (9.1-12.4); NRBC ABSOLUTE 0.07 K/mm3 (0.00-0.02); NRBC Auto 0.1 /100 WBC (0.0-0.2); Platelet Count 451 K/mm3 (150-400); RDW Coefficient Variation 24.1 % (11.7-14.2); RDW Standard Deviation 65.9 fL (35.1-46.3); Red Blood Cell Count 4.01 M/mm3 (3.80-5.20)
[2018-09-05 05:07] LABS: Alanine Aminotransfer (ALT/SGP 17 U/L (12-78); Albumin, Blood 1.7 g/dL (3.4-5.0); Albumin/Globulin Ratio 0.6 (0.8-1.8); Alk Phos 112 U/L (50-136); Anion Gap 5 mmol/L (6-16); Aspartate Aminotrans (AST/SGOT 24 U/L (12-37); Bilirubin, Total 0.2 mg/dL (0.1-1.0); Blood Urea Nitrogen 12 mg/dL (8-24); Bun/Creatinine Ratio 13.5 (12.0-20.0); CO2, Blood 26 mmol/L (21-32); Calcium, Blood 7.5 mg/dL (8.5-10.1); Chloride, Blood 106 mmol/L (98-108); Creatinine, Blood 0.89 mg/dL (0.40-1.00); Globulin, Blood 2.9 g/dL (2.2-4.0); Glomerular Filtration Rate >60 (60-); Glucose, Blood 88 mg/dL (70-99); Magnesium, Blood 1.8 mg/dL (1.6-2.4); Potassium, Blood 3.7 mmol/L (3.5-5.5); Sodium, Blood 137 mmol/L (136-145); Total Protein, Blood 4.6 g/dL (6.4-8.2)
[2018-09-05 05:38] LABS: BAND PERCENT MAN 17 % (0-8); BASOPHILS PERCENT MAN 0 % (0-2); EOSINOPHILS PERCENT MAN 0 % (0-6); LYMPHOCYTES ABSOLUTE MAN 3.76 K/mm3 (0.84-5.20); LYMPHOCYTES PERCENT MAN 8 % (21-46); METAMYELOCYTE ABSOLUTE MAN 2.35 K/mm3 (0.00-0.00); METAMYELOCYTE PERCENT MAN 5 % (0-0); MONOCYTES ABSOLUTE MAN 3.29 K/mm3 (0.16-1.47); MONOCYTES PERCENT MAN 7 % (4-13); MYELOCYTE ABSOLUTE MAN 1.88 K/mm3 (0.00-0.00); MYELOCYTE PERCENT MAN 4 % (0-0); NEUTROPHILS ABSOLUTE MAN 35.25 K/mm3 (1.96-9.15); PROMYELOCYTE ABSOLUTE MAN 0.47 K/mm3 (0.00-0.00); PROMYELOCYTE PERCENT MAN 1 % (0-0); SEG NEUTROPHILS PERCENT MAN 58 % (41-73); TOTAL CELLS COUNTED 100
--- NOTE | 2018-09-05 18:20 | NUR ---
SHIFT SUMMARY. A&OX4, INDEPENDENT TO BATHROOM, PT PARTICIPATED WITH PT/OT AND TOLERATED WELL. PT REPORTED 5 LOOSE/LIQUID BM'S THIS AFTERNOON. PT CHRONIC PAIN MANAGED WELL WITH CURRENT ORDERS. PT C/O HEMRHOID PAIN, SUPPOSITORY GIVEN PER ORDERS. NO N/V, SOB. PT RECIEVED NEW IV TO L UPPER ARM. NO OTHER CHANGES OR CONCERNS.
[2018-09-06 05:02] LABS: Hematocrit 30.2 % (33.0-51.0); Hemoglobin 9.4 g/dL (11.5-16.0); Mean Corpuscular HGB 24.6 pg (26.0-34.0); Mean Corpuscular HGB Conc 31.1 g/dL (31.5-36.5); Mean Corpuscular Volume 79 fL (80-100); Mean Platelet Volume 10.6 fL (9.1-12.4); NRBC ABSOLUTE 0.12 K/mm3 (0.00-0.02); NRBC Auto 0.3 /100 WBC (0.0-0.2); Platelet Count 417 K/mm3 (150-400); RDW Coefficient Variation 24.5 % (11.7-14.2); RDW Standard Deviation 66.7 fL (35.1-46.3); Red Blood Cell Count 3.82 M/mm3 (3.80-5.20); White Blood Cell Count 43.47 K/mm3 (4.00-11.30)
[2018-09-06 05:21] LABS: Alanine Aminotransfer (ALT/SGP 20 U/L (12-78); Albumin, Blood 1.7 g/dL (3.4-5.0); Albumin/Globulin Ratio 0.6 (0.8-1.8); Alk Phos 101 U/L (50-136); Anion Gap 6 mmol/L (6-16); Aspartate Aminotrans (AST/SGOT 29 U/L (12-37); Bilirubin, Total 0.2 mg/dL (0.1-1.0); Blood Urea Nitrogen 8 mg/dL (8-24); CO2, Blood 27 mmol/L (21-32); Calcium, Blood 7.4 mg/dL (8.5-10.1); Chloride, Blood 106 mmol/L (98-108); Creatinine, Blood 0.89 mg/dL (0.40-1.00); Globulin, Blood 2.7 g/dL (2.2-4.0); Glomerular Filtration Rate >60 (60-); Glucose, Blood 83 mg/dL (70-99); Magnesium, Blood 1.7 mg/dL (1.6-2.4); Potassium, Blood 3.6 mmol/L (3.5-5.5); Sodium, Blood 139 mmol/L (136-145); Total Protein, Blood 4.4 g/dL (6.4-8.2)
[2018-09-06 05:39] LABS: BAND PERCENT MAN 8 % (0-8); BASOPHILS PERCENT MAN 0 % (0-2); EOSINOPHILS PERCENT MAN 0 % (0-6); LYMPHOCYTES PERCENT MAN 6 % (21-46); METAMYELOCYTE ABSOLUTE MAN 3.04 K/mm3 (0.00-0.00); METAMYELOCYTE PERCENT MAN 7 % (0-0); MONOCYTES ABSOLUTE MAN 2.17 K/mm3 (0.16-1.47); MONOCYTES PERCENT MAN 5 % (4-13); MYELOCYTE ABSOLUTE MAN 3.91 K/mm3 (0.00-0.00); MYELOCYTE PERCENT MAN 9 % (0-0); NEUTROPHILS ABSOLUTE MAN 31.29 K/mm3 (1.96-9.15); SEG NEUTROPHILS PERCENT MAN 64 % (41-73); TOTAL CELLS COUNTED 100
[2018-09-06 05:40] LABS: PROMYELOCYTE ABSOLUTE MAN 0.43 K/mm3 (0.00-0.00); PROMYELOCYTE PERCENT MAN 1 % (0-0)
--- NOTE | 2018-09-06 06:07 | NUR ---
SHIFT SUMMARY PT SLEPT WELL T/O NIGHT. NO ACUTE CHANGES THIS SHIFT. AOX4. VSS. DENIES N/V OR SOB. REPORTS FEELING BLOATED W/MILD ABD PAIN/DISCOMFORT, HAS HAD @LEAST 3 LOOSE BM THIS SHIFT, PT STATES THEY ARE STARTING TO APPEAR MORE FORMED THAN THE PAST 2 MONTHS. REPORTS 9/10 PAIN IN ABD, HIPS & BACK, MEDICATED 1X W/NORCO PER ORDERS & 1X W/SCHEDULED MS CONTIN. IND TO RESTROOM, STEADY ON FEET. CALL LIGHT IN REACH & I WILL CONTINUE TO MONITOR.
--- NOTE | 2018-09-06 16:35 | NUR ---
SHIFT SUMMARY NO ACUTE CHANGES. PATIENT DECLINED TO WORK WITH PT AND OT TODAY STATING SHE FEELS SHE OVERDID IT YESTERDAY. PATIENT MEDICATED X2 FOR PAIN THIS SHIFT. DENIES NAUSEA AND SHORTNESS OF BREATH. UP INDEPENDENT TO BR WITH FWW. CALL LIGHT IN REACH, WILL CONTINUE TO MONITOR.
--- NOTE | 2018-09-07 06:58 | NUR ---
Rn summary: Patient is alert and oriented. She has been up independantly in her room. She is in isolation for C-Diff, pt states her stools have been more loose this shift again. Pt is on oral vancomycin. Pt has been medicated x 1 with norco for hip and back pain. Pt does not sleep very much at a time. Pt breathsounds diminished in bases with occ productive cough. Pt plans on being discharged today. Call light in reach.
[2018-09-07 12:15] LABS: Hematocrit 31.7 % (33.0-51.0); Hemoglobin 9.9 g/dL (11.5-16.0); Mean Corpuscular HGB 25.2 pg (26.0-34.0); Mean Corpuscular HGB Conc 31.2 g/dL (31.5-36.5); Mean Corpuscular Volume 81 fL (80-100); Mean Platelet Volume 10.9 fL (9.1-12.4); NRBC ABSOLUTE 0.11 K/mm3 (0.00-0.02); NRBC Auto 0.3 /100 WBC (0.0-0.2); Platelet Count 448 K/mm3 (150-400); RDW Coefficient Variation 24.2 % (11.7-14.2); RDW Standard Deviation 68.5 fL (35.1-46.3); Red Blood Cell Count 3.93 M/mm3 (3.80-5.20); White Blood Cell Count 41.63 K/mm3 (4.00-11.30)
[2018-09-07 14:09] LABS: Anion Gap 6 mmol/L (6-16); Blood Urea Nitrogen 6 mg/dL (8-24); Bun/Creatinine Ratio 6.9 (12.0-20.0); CO2, Blood 28 mmol/L (21-32); Calcium, Blood 7.3 mg/dL (8.5-10.1); Chloride, Blood 105 mmol/L (98-108); Creatinine, Blood 0.87 mg/dL (0.40-1.00); Glomerular Filtration Rate >60 (60-); Glucose, Blood 126 mg/dL (70-99); Potassium, Blood 3.3 mmol/L (3.5-5.5); Sodium, Blood 139 mmol/L (136-145)
[2018-09-07] MEDS ORDERED: HYDACE25S PR (15:33)
[2018-09-07] MEDS ORDERED: HIGH POTENCY P1 EACH PO (15:36)
[2018-09-07] MEDS ORDERED: Gas Relief 8080 MG PO (15:37)
[2018-09-07] MEDS ORDERED: VANCOMYCIN125 MG/2.5 PO (15:43)
--- NOTE | 2018-09-07 16:44 | NUR ---
DISCHARGE DISCHARGE MEDICATIONS AND INSTRUCTIONS EXPLAINED TO PATIENT. PATIENT STATED UNDERSTANDING. IV REMOVED WITHOUT DIFFICULTY. BELONGINGS WITH PATIENT. PATIENT TRANSPORTED TO PRIVATE VEHICLE VIA WHEELCHAIR.
== END 2018-09-07 16:48 | disposition home or self-care (01) | DRG 871 ==
LOC: ER 16:54 → ICUW 22:03 → MEDS 09-01 15:30 → ENPENDDIS 09-07 15:13 → MEDS 09-07 16:48
PROVIDERS: Emergency Medicine; Internal Medicine; Internal Medicine Hematology & Oncology; Nurse Practitioner Acute Care; ADMIT Internal Medicine
PROC: 30233N1 Transfusion of Nonautologous Red Blood Cells into Peripheral Vein, Percutaneous Approach (ICD-10-PCS; principal; 2018-08-30)
DX: A41.9 Sepsis, unspecified organism (principal); G92 Toxic encephalopathy; N17.9 Acute kidney failure, unspecified; D61.818 Other pancytopenia; E87.1 Hypo-osmolality and hyponatremia; E27.2 Addisonian crisis; L40.50 Arthropathic psoriasis, unspecified; M79.7 Fibromyalgia; F32.9 Major depressive disorder, single episode, unspecified; J45.20 Mild intermittent asthma, uncomplicated; Z85.42 Personal history of malignant neoplasm of other parts of uterus; T40.601A Poisoning by unspecified narcotics, accidental (unintentional), initial encounter; G89.29 Other chronic pain; K62.89 Other specified diseases of anus and rectum; R65.20 Severe sepsis without septic shock; J44.9 Chronic obstructive pulmonary disease, unspecified; I10 Essential (primary) hypertension
CPT/HCPCS: 36415; 36430; 36556; 36600; 51702; 70450; 71045; 71046; 80048; 80053; 81001; 82272; 82607; 82728; 82746; 82803; 83010; 83540; 83550; 83605; 83615; 83735; 84100; 84145; 84439; 84443; 84481; 84550; 85007; 85014; 85018; 85025; 85027; 85045; 85060; 85610; 85651; 86140; 86850; 86900; 86901; 86923; 87015; 87045; 87046; 87086; 87205; 87324; 87507; 87899; 88184; 88185; 93005; 93010; 96361-59; 96374-59; 96375-59; 97110; 97116; 97162; 97166; 97530; 99285-25; A9270; A9270-GY; C1751; C9113; G0480; J0610; J0696; J1720; J2310; J3010; J3475; J7030; J7050; J7512; P9016; P9046

== ENCOUNTER 2018-09-14 12:13 | Day surgery (SDC) | payer OTHER ==
[~2018-09-14 12:13] MED LIST changes: +ALBU90OI61 INH; +Gas Relief 8080 MG PO; +HIGH POTENCY P1 EACH PO; +HYDACE25S PR; +Hydrocodone-Ap1 EA23 PO; +VANCOMYCIN125 MG/2.5 PO
== END 2018-09-14 23:01 | disposition home or self-care (01) ==
LOC: WOUND 12:13
DX: L97.521 Non-pressure chronic ulcer of other part of left foot limited to breakdown of skin (principal); L60.0 Ingrowing nail; I10 Essential (primary) hypertension; F32.9 Major depressive disorder, single episode, unspecified
CPT/HCPCS: G0463

== ENCOUNTER 2018-10-05 00:12 | Day surgery (SDC) | payer OTHER | END 2018-10-05 16:15 | disposition home or self-care (01) | LOC: ATC 00:12 | DX: L40.0 Psoriasis vulgaris (principal); Z88.0 Allergy status to penicillin | CPT/HCPCS: 96413; 96415; J7050; Q5103 ==

== ENCOUNTER 2018-11-16 00:17 | Day surgery (SDC) | payer OTHER | END 2018-11-16 12:45 | disposition home or self-care (01) | LOC: ATC 00:17 | DX: L40.0 Psoriasis vulgaris (principal) | CPT/HCPCS: 96413; 96415; J1745; J7050 ==

== ENCOUNTER 2018-12-19 09:50 | Inpatient (IN) | payer OTHER ==
[~2018-12-19] VITALS: Ht 165.1 cm; Wt 85.6 kg
[2018-12-19 10:30] LABS: BASOPHILS ABSOLUTE AUTO 0.03 K/mm3 (0.00-0.23); BASOPHILS PERCENT AUTO 1 % (0-2); EOSINOPHILS ABSOLUTE AUTO 0.41 K/mm3 (0.00-0.68); EOSINOPHILS PERCENT AUTO 9 % (0-6); IMMATURE GRAN ABSOLUTE AUTO 0.01 K/mm3 (0.00-0.10); IMMATURE GRAN PERCENT AUTO 0 % (0-1); LYMPHOCYTES ABSOLUTE AUTO 1.56 K/mm3 (0.84-5.20); LYMPHOCYTES PERCENT AUTO 35 % (21-46); MONOCYTES ABSOLUTE AUTO 0.32 K/mm3 (0.16-1.47); MONOCYTES PERCENT AUTO 7 % (4-13); Mean Corpuscular HGB 22.8 pg (26.0-34.0); Mean Corpuscular HGB Conc 27.5 g/dL (31.5-36.5); Mean Corpuscular Volume 83 fL (80-100); Mean Platelet Volume 10.7 fL (9.1-12.4); NEUTROPHILS ABSOLUTE AUTO 2.15 K/mm3 (1.96-9.15); NEUTROPHILS PERCENT AUTO 48 % (41-73); NRBC ABSOLUTE 0.05 K/mm3 (0.00-0.02); NRBC Auto 1.1 /100 WBC (0.0-0.2); Platelet Count 524 K/mm3 (150-400); RDW Coefficient Variation 22.1 % (11.7-14.2); RDW Standard Deviation 63.5 fL (35.1-46.3); Red Blood Cell Count 1.84 M/mm3 (3.80-5.20); White Blood Cell Count 4.48 K/mm3 (4.00-11.30)
[2018-12-19 10:37] LABS: Hematocrit 15.3 % (33.0-51.0)
[2018-12-19 10:38] LABS: Hemoglobin 4.2 g/dL (11.5-16.0)
[2018-12-19 10:44] LABS: Alanine Aminotransfer (ALT/SGP 12 U/L (12-78); Albumin, Blood 2.5 g/dL (3.4-5.0); Albumin/Globulin Ratio 0.6 (0.8-1.8); Alk Phos 173 U/L (50-136); Anion Gap 6 mmol/L (6-16); Aspartate Aminotrans (AST/SGOT 15 U/L (12-37); Bilirubin, Total 0.2 mg/dL (0.1-1.0); Blood Urea Nitrogen 11 mg/dL (8-24); Bun/Creatinine Ratio 11.4 (12.0-20.0); CO2, Blood 25 mmol/L (21-32); Calcium, Blood 8.3 mg/dL (8.5-10.1); Chloride, Blood 111 mmol/L (98-108); Creatinine, Blood 0.96 mg/dL (0.40-1.00); Globulin, Blood 3.9 g/dL (2.2-4.0); Glomerular Filtration Rate >60 (60-); Glucose, Blood 90 mg/dL (70-99); Potassium, Blood 3.2 mmol/L (3.5-5.5); Sodium, Blood 142 mmol/L (136-145); Total Protein, Blood 6.4 g/dL (6.4-8.2); Troponin I <0.015 ng/mL (0.000-0.040)
[2018-12-19 12:16] LABS: International Normalized Ratio 1.02; Prothrombin Time Results 10.8 Sec (9.7-11.5)
[2018-12-19 12:28] LABS: IMMATURE RETIC FRACTION 4.3 % (2.3-16.0); RETIC HGB EQUIVALENT 16.6 pg (28.20-36.60); RETICULOCYTE COUNT PERCENT 0.87 % (0.50-2.50)
[2018-12-19 12:29] LABS: RETICULOCYTE ABSOLUTE 0.018 M/mm3 (0.0200-0.1100)
[2018-12-19] MEDS ORDERED: Omega-31000 MG PO (15:29)
[2018-12-19] MEDS ORDERED: TRIA15CR3 TOP (15:30)
[2018-12-19] MEDS ORDERED: DICL75ER PO (15:31)
[2018-12-19] MEDS ORDERED: MOMENI (15:31)
[2018-12-19] MEDS ORDERED: HYDPAM50 PO (15:32)
[2018-12-19 18:42] LABS: Adenovirus F 40/41 Not Detected (NOT DETECT); Astrovirus Not Detected (NOT DETECT); Campylobacter Sp Not Detected (NOT DETECT); Cryptosporidium Not Detected (NOT DETECT); Cyclospora Cayetanensis Not Detected (NOT DETECT); E. Coli O157 Not Detected (NOT DETECT); Entamoeba Histolytica Not Detected (NOT DETECT); Enteroaggregative E. coli-EAEC Not Detected (NOT DETECT); Enteropathogenic E. coli-EPEC Detected (NOT DETECT); Enterotoxigenic E. coli-ETEC Not Detected (NOT DETECT); Giardia Lamblia Not Detected (NOT DETECT); Norovirus GI/GII Not Detected (NOT DETECT); Plesiomonas Shigelloides Not Detected (NOT DETECT); Rotavirus A Not Detected (NOT DETECT); Salmonella Sp Not Detected (NOT DETECT); Sapovirus Not Detected (NOT DETECT); Shiga Toxin-prod E. coli-STEC Not Detected (NOT DETECT); Shigella/Enteroin E. coli-EIEC Not Detected (NOT DETECT); Vibrio Cholerae Not Detected (NOT DETECT); Vibrio Sp Not Detected (NOT DETECT); Yersinia Enterocolitica Not Detected (NOT DETECT)
--- NOTE | 2018-12-19 19:00 | NUR ---
PT. ARRIVED TO FLOOR AROUND 1814, PRBC'S IINFUSING. PT. DENIES PAIN OR NAUSEA. USED BSC AND HAD LOOSE STOOL, ODIFEROUS BUT DOES NOT HAVE C-DIFF APPEARANCE. STOOL SENT FROM ER FOR C-DIFF. WILL TURN OVER PT. TO ONCOMING RN.
--- NOTE | 2018-12-19 20:15 | NUR ---
PCU NIGHTSHIFT ASSUMED CARE OF PT JAYY. 1899. PT A&OX4. VITAL SIGNS STABLE. ASSESSMENT COMPLETED. SENT OFF TO GET NEXT UNIT OF PRBC'S STARTED PER ORDERS. PT RIGHT LEG DEFORMITY, WHICH IS CHRONIC. PT REPROTS CHRONIC PAIN IN RIGHT LEG WELL BUT REPORTS THIS TOLERABLE AT THIS TIME. WILL COMPLETE ADMISSION PROCESS. BED IN LOW POSITION, CALL LIGHT IN REACH AND PT DENIES ANY NEEDDS. WILL CONTINUE TO MONITOR.
[2018-12-20 05:11] LABS: Alanine Aminotransfer (ALT/SGP 8 U/L (12-78); Albumin, Blood 2.2 g/dL (3.4-5.0); Albumin/Globulin Ratio 0.6 (0.8-1.8); Alk Phos 155 U/L (50-136); Anion Gap 4 mmol/L (6-16); Aspartate Aminotrans (AST/SGOT 13 U/L (12-37); Bilirubin, Total 0.9 mg/dL (0.1-1.0); Blood Urea Nitrogen 10 mg/dL (8-24); Bun/Creatinine Ratio 12.3 (12.0-20.0); CO2, Blood 26 mmol/L (21-32); Chloride, Blood 115 mmol/L (98-108); Creatinine, Blood 0.81 mg/dL (0.40-1.00); Globulin, Blood 3.7 g/dL (2.2-4.0); Glomerular Filtration Rate >60 (60-); Glucose, Blood 131 mg/dL (70-99); Magnesium, Blood 2.2 mg/dL (1.6-2.4); Potassium, Blood 4.5 mmol/L (3.5-5.5); Sodium, Blood 145 mmol/L (136-145); Total Protein, Blood 5.9 g/dL (6.4-8.2)
[2018-12-20 05:13] LABS: BASOPHILS ABSOLUTE AUTO 0.01 K/mm3 (0.00-0.23); BASOPHILS PERCENT AUTO 0 % (0-2); EOSINOPHILS ABSOLUTE AUTO 0.01 K/mm3 (0.00-0.68); EOSINOPHILS PERCENT AUTO 0 % (0-6); Hematocrit 24.6 % (33.0-51.0); Hemoglobin 7.7 g/dL (11.5-16.0); IMMATURE GRAN ABSOLUTE AUTO 0.04 K/mm3 (0.00-0.10); IMMATURE GRAN PERCENT AUTO 1 % (0-1); LYMPHOCYTES ABSOLUTE AUTO 0.85 K/mm3 (0.84-5.20); LYMPHOCYTES PERCENT AUTO 13 % (21-46); MONOCYTES ABSOLUTE AUTO 0.17 K/mm3 (0.16-1.47); MONOCYTES PERCENT AUTO 3 % (4-13); Mean Corpuscular HGB Conc 31.3 g/dL (31.5-36.5); Mean Corpuscular Volume 83 fL (80-100); Mean Platelet Volume 10.6 fL (9.1-12.4); NEUTROPHILS ABSOLUTE AUTO 5.39 K/mm3 (1.96-9.15); NEUTROPHILS PERCENT AUTO 83 % (41-73); NRBC ABSOLUTE 0.07 K/mm3 (0.00-0.02); NRBC Auto 1.1 /100 WBC (0.0-0.2); Platelet Count 437 K/mm3 (150-400); RDW Coefficient Variation 18.6 % (11.7-14.2); RDW Standard Deviation 55.6 fL (35.1-46.3); Red Blood Cell Count 2.96 M/mm3 (3.80-5.20); White Blood Cell Count 6.47 K/mm3 (4.00-11.30)
--- NOTE | 2018-12-20 08:02 | NUR ---
SHIFT SUMMARY PT PLEASANT, COOPERATIVE AND USES CALL LIGHT APPROPRIATELY. PT REMAINS A&O X4. ASSESSMENT FINDINGS REMAIN UNCHANGED. VITAL SIGNS REMAIN STABLE. PT RECIEVED REMAINING 2 UNITS OF PRBC'S PER PROTOCOL. PT ABLE TO AMBALATE TO BATHROOM NEEDED AND TOLERATED WELL. PT REPORTS FEELING GOOD OVERALL, JUST TIRED. BED IN LOW POSITION, CALL LIGHT IN REACH AND PT DENIES ANY NEEDS. WILL CONTINUE TO MONITOR UNTIL HANDOFF TO DAYSHIFT RN.
--- NOTE | 2018-12-20 17:29 | NUR ---
SHIFT SUMMARY PT A&Ox4. CALM AND COOPERATIVE WITH CARE. PT RESTING IN BED DURING SHIFT. UP TO BATHROOM IND. PT REPORTS HAVING TWO BM'S DURING SHIFT, THE LAST BEING LIGHT/BROWN VELASQUEZ LIQUIDS WITH SMALL PELLETS. PT REPORTS PAIN IN RIGHT SIDE, MEDCIATED WITH SCHEDULED MORPHINE AND PRN NORCO WITH POSITIVE RESULTS. PT DENIES SOB AND NAUSEA DURING SHIFT, PT REPORTS FEELING BETTER AFTER THE TRANSFUSIONS. VSS. NO OTHER ACUTE CHANGES NOTED DURING SHIFT. WILL CONTINUE TO MONITOR UNTIL REPORT GIVEN TO ONCOMING RN.
[2018-12-21 04:09] LABS: Hematocrit 24.8 % (33.0-51.0); Hemoglobin 7.5 g/dL (11.5-16.0); Mean Corpuscular HGB 25.6 pg (26.0-34.0); Mean Corpuscular HGB Conc 30.2 g/dL (31.5-36.5); Mean Corpuscular Volume 85 fL (80-100); Mean Platelet Volume 9.9 fL (9.1-12.4); NRBC ABSOLUTE 0.02 K/mm3 (0.00-0.02); NRBC Auto 0.4 /100 WBC (0.0-0.2); Platelet Count 374 K/mm3 (150-400); RDW Coefficient Variation 19.3 % (11.7-14.2); RDW Standard Deviation 59.1 fL (35.1-46.3); Red Blood Cell Count 2.93 M/mm3 (3.80-5.20)
[2018-12-21 04:25] LABS: Anion Gap 3 mmol/L (6-16); Blood Urea Nitrogen 11 mg/dL (8-24); Bun/Creatinine Ratio 13.6 (12.0-20.0); CO2, Blood 29 mmol/L (21-32); Calcium, Blood 8.1 mg/dL (8.5-10.1); Chloride, Blood 112 mmol/L (98-108); Creatinine, Blood 0.81 mg/dL (0.40-1.00); Glomerular Filtration Rate >60 (60-); Glucose, Blood 102 mg/dL (70-99); Potassium, Blood 3.9 mmol/L (3.5-5.5); Sodium, Blood 144 mmol/L (136-145)
[2018-12-21 05:37] LABS: BASOPHILS PERCENT MAN 0 % (0-2); EOSINOPHILS ABSOLUTE MAN 0.45 K/mm3 (0.00-0.68); EOSINOPHILS PERCENT MAN 8 % (0-6); LYMPHOCYTES ABSOLUTE MAN 1.82 K/mm3 (0.84-5.20); LYMPHOCYTES PERCENT MAN 32 % (21-46); MONOCYTES ABSOLUTE MAN 0.39 K/mm3 (0.16-1.47); MONOCYTES PERCENT MAN 7 % (4-13); NEUTROPHILS ABSOLUTE MAN 3.02 K/mm3 (1.96-9.15); SEG NEUTROPHILS PERCENT MAN 53 % (41-73); TOTAL CELLS COUNTED 100
--- NOTE | 2018-12-21 07:51 | NUR ---
SHIFT SUMMARY ASSUMED CARE OF PT AT 1900, PT AWAKE AND ALERT SITTING UP IN BED. PT MEDICATED AND TREATED PER ORDER AND PROTOCOL. NO C/O PAIN, NO ISSUES OUTSIDE OF ROUTINE MEDS AND VITAL SIGNS WHICH REMAINED STABLE T/O. PT TAKES SELF TO TOILET X 6 THIS NIGHT, IS COMPLIANT WITH LO-SODIUM DIET, AND COOPERATIVE WITH CARE. REPORT PASSED TO ONCOMING SHIFT, BED LOW AND LOCKED, CALL LIGHT W/IN REACH, PT RESTING IN BED.
[2018-12-21] MEDS ORDERED: CHOLP PO (11:46)
[2018-12-21] MEDS ORDERED: Vsl#3 Capsule1 EACH PO (11:47)
[2018-12-21] MEDS ORDERED: MS Contin15 MG PO (11:49)
[2018-12-21] MEDS ORDERED: POTA10T PO (11:50)
--- NOTE | 2018-12-21 19:27 | NUR ---
DISCHARGE SUMMARY PT A&Ox4. CALM AND COOPERATIVE WITH CARE. PT RESTING IN BED DURING SHIFT, UP TO BATHROOM IND. PT REPORTS PAIN IN RIGHT SIDE, MEDCIATED WITH SCHEDULED MORPHONE AND PRN NORCO PER ORDERS. PT DENIES SOB, LIGHTHEADED/DIZZINESS AND NAUSEA. PT RECEIVING QUESTRAN WITH BEFORE MEALS. VSS. NO OTHER ACUTE CHANGES NOTED. PT EDUCATED ON DISCHARGE SUMMARY, MEDICATIONS AND FOLLOW UP APPOINTMENTS (FOR PCP AND DERMATOLOGY.) PRESCIPTIONS CALLED IN TO [facility] PER PT REQUEST. PT LEFT VIA WHEELCHAIR AT 1330, PT STABLE UPON DISCHARGE.
== END 2018-12-21 13:30 | disposition home or self-care (01) | DRG 392 ==
LOC: ER 09:50 → ERHOLD 11:41 → PCU 18:08
PROVIDERS: Emergency Medicine; Nurse Practitioner Acute Care; ADMIT Internal Medicine
PROC: 30233N1 Transfusion of Nonautologous Red Blood Cells into Peripheral Vein, Percutaneous Approach (ICD-10-PCS; principal; 2018-12-19)
DX: R19.7 Diarrhea, unspecified (principal); F11.20 Opioid dependence, uncomplicated; M19.90 Unspecified osteoarthritis, unspecified site; M79.7 Fibromyalgia; K21.9 Gastro-esophageal reflux disease without esophagitis; F41.1 Generalized anxiety disorder; J45.20 Mild intermittent asthma, uncomplicated; Z85.42 Personal history of malignant neoplasm of other parts of uterus; F32.9 Major depressive disorder, single episode, unspecified; I10 Essential (primary) hypertension; E87.6 Hypokalemia; D64.89 Other specified anemias; T39.8X5A Adverse effect of other nonopioid analgesics and antipyretics, not elsewhere classified, initial encounter; T45.1X5A Adverse effect of antineoplastic and immunosuppressive drugs, initial encounter; Y92.9 Unspecified place or not applicable; E78.1 Pure hyperglyceridemia; L40.50 Arthropathic psoriasis, unspecified
CPT/HCPCS: 0097U; 36415; 36430; 71045; 80048; 80053; 82272; 82533; 83735; 83880; 84484; 85025; 85045; 85610; 86850; 86900; 86901; 86923; 93005; 93010; 96361; 96374; 96375; 99285-25; A9270-GY; C9113; J1100; J7030; J7120; P9016

== ENCOUNTER 2018-12-28 00:13 | Day surgery (SDC) | payer OTHER ==
[~2018-12-28 00:13] MED LIST changes: +CHOLP PO; +MS Contin15 MG PO; +Omega-31000 MG PO; +POTA10T PO; +TRIA15CR3 TOP; +Vsl#3 Capsule1 EACH PO
== END 2018-12-28 23:04 | disposition home or self-care (01) ==
LOC: ATC 00:13
DX: L40.0 Psoriasis vulgaris (principal); L40.50 Arthropathic psoriasis, unspecified; D37.01 Neoplasm of uncertain behavior of lip; Z88.0 Allergy status to penicillin; Z79.899 Other long term (current) drug therapy

== ENCOUNTER → 2019-03-10 | Outpatient (CLI) | payer OTHER ==
[2019-03-10 18:06] LABS: BASOPHILS ABSOLUTE AUTO 0.07 K/mm3 (0.00-0.23); BASOPHILS PERCENT AUTO 1 % (0-2); EOSINOPHILS ABSOLUTE AUTO 0.31 K/mm3 (0.00-0.68); EOSINOPHILS PERCENT AUTO 4 % (0-6); Hematocrit 39.6 % (33.0-51.0); Hemoglobin 11.7 g/dL (11.5-16.0); IMMATURE GRAN ABSOLUTE AUTO 0.02 K/mm3 (0.00-0.10); IMMATURE GRAN PERCENT AUTO 0 % (0-1); LYMPHOCYTES ABSOLUTE AUTO 2.73 K/mm3 (0.84-5.20); LYMPHOCYTES PERCENT AUTO 34 % (21-46); MONOCYTES ABSOLUTE AUTO 0.93 K/mm3 (0.16-1.47); MONOCYTES PERCENT AUTO 12 % (4-13); Mean Corpuscular HGB 26.2 pg (26.0-34.0); Mean Corpuscular HGB Conc 29.5 g/dL (31.5-36.5); Mean Corpuscular Volume 89 fL (80-100); Mean Platelet Volume 10.4 fL (9.1-12.4); NEUTROPHILS ABSOLUTE AUTO 3.88 K/mm3 (1.96-9.15); NEUTROPHILS PERCENT AUTO 49 % (41-73); Platelet Count 436 K/mm3 (150-400); RDW Coefficient Variation 19.9 % (11.7-14.2); Red Blood Cell Count 4.46 M/mm3 (3.80-5.20); White Blood Cell Count 7.94 K/mm3 (4.00-11.30)
[2019-03-10 18:24] LABS: Alanine Aminotransfer (ALT/SGP 22 U/L (12-78); Albumin, Blood 3.6 g/dL (3.4-5.0); Albumin/Globulin Ratio 0.9 (0.8-1.8); Alk Phos 173 U/L (50-136); Anion Gap 4 mmol/L (6-16); Aspartate Aminotrans (AST/SGOT 16 U/L (12-37); Bilirubin, Total 0.2 mg/dL (0.1-1.0); Blood Urea Nitrogen 13 mg/dL (8-24); Bun/Creatinine Ratio 14.6 (12.0-20.0); CO2, Blood 29 mmol/L (21-32); Calcium, Blood 8.9 mg/dL (8.5-10.1); Chloride, Blood 106 mmol/L (98-108); Cholesterol 202 mg/dL (50-200); Creatinine, Blood 0.89 mg/dL (0.40-1.00); Glomerular Filtration Rate >60 (60-); Glucose, Blood 87 mg/dL (70-99); HDL Cholesterol 51 mg/dL (>39); LDL/HDL RATIO 2.6; Low Density Lipoprotein Chol 133 mg/dL (0-110); Potassium, Blood 4.2 mmol/L (3.5-5.5); Sodium, Blood 139 mmol/L (136-145); Total Protein, Blood 7.6 g/dL (6.4-8.2); Triglycerides 92 mg/dL (30-160); Very Low Density Lipoprot Chol 18 mg/dL (6-32)
== END ==
LOC: LAB SHORT 17:33 → LAB 17:33 → EDSTATUS 01-21 13:15 → LAB FUT 01-21 13:15
PROVIDERS: Family Medicine
DX: I10 Essential (primary) hypertension (principal)
CPT/HCPCS: 80053; 80061; 84443; 85025

== ENCOUNTER 2019-04-27 09:41 | Emergency (ER) | payer OTHER ==
[~2019-04-27] VITALS: Ht 165.1 cm; Wt 81.7 kg
[2019-04-27] MEDS ORDERED: OMEP20ER PO (11:10)
[2019-04-27] MEDS ORDERED: METPRE4DP PO (11:48)
== END 2019-04-27 12:12 | disposition home or self-care (01) ==
LOC: ER 09:41
DX: J06.9 Acute upper respiratory infection, unspecified (principal); J98.01 Acute bronchospasm; Z79.899 Other long term (current) drug therapy
CPT/HCPCS: 99283

== ENCOUNTER 2019-06-20 10:01 | Inpatient (IN) | payer OTHER ==
[~2019-06-20] VITALS: Ht 167.6 cm; Wt 90.3 kg
[~2019-06-20 10:01] MED LIST changes: -Hydrocodone-Ap1 EA23 PO; +METPRE4DP PO; +NEURONTIN600 MG PO; -Neurontin400 MG PO; +Norco 5-325 Ta1 EACH PO; +OMEP20ER PO
[2019-06-20 13:15] LABS: Source, Urine Clean Catch
[2019-06-20 13:21] LABS: BASOPHILS ABSOLUTE AUTO 0.05 K/mm3 (0.00-0.23); BASOPHILS PERCENT AUTO 0 % (0-2); EOSINOPHILS ABSOLUTE AUTO 0.08 K/mm3 (0.00-0.68); EOSINOPHILS PERCENT AUTO 1 % (0-6); Hemoglobin 11.5 g/dL (11.5-16.0); IMMATURE GRAN ABSOLUTE AUTO 0.04 K/mm3 (0.00-0.10); IMMATURE GRAN PERCENT AUTO 0 % (0-1); LYMPHOCYTES ABSOLUTE AUTO 1.93 K/mm3 (0.84-5.20); LYMPHOCYTES PERCENT AUTO 15 % (21-46); MONOCYTES ABSOLUTE AUTO 1.01 K/mm3 (0.16-1.47); MONOCYTES PERCENT AUTO 8 % (4-13); Mean Corpuscular HGB Conc 31.1 g/dL (31.5-36.5); Mean Corpuscular Volume 90 fL (80-100); Mean Platelet Volume 9.9 fL (9.1-12.4); NEUTROPHILS PERCENT AUTO 75 % (41-73); Platelet Count 379 K/mm3 (150-400); RDW Coefficient Variation 16.4 % (11.7-14.2); RDW Standard Deviation 53.2 fL (35.1-46.3); White Blood Cell Count 12.51 K/mm3 (4.00-11.30)
[2019-06-20] MEDS ORDERED: GEMF600 PO (13:26)
[2019-06-20] MEDS ORDERED: Aspirin EC81 MG PO (13:27)
[2019-06-20 13:31] LABS: Bilirubin, Urine Neg (Neg); Blood, Urine Neg (Neg); Glucose Qualitative, Urine Neg (Neg); Ketones, Urine Neg (Neg); Leukocyte Esterase, Urine Neg (Neg); Nitrite, Urine Neg (Neg); Protein, Urine Neg (Neg); Specific Gravity, Urine 1.015 (1.003-1.022); Urobilinogen, Urine NORM (Normal)
[2019-06-20 13:40] LABS: Appearance, Urine Clear (Clear); Color, Urine Pale Yellow (P-Yellow)
[2019-06-20 13:52] LABS: Alanine Aminotransfer (ALT/SGP 23 U/L (12-78); Albumin, Blood 3.3 g/dL (3.4-5.0); Albumin/Globulin Ratio 0.8 (0.8-1.8); Alk Phos 155 U/L (50-136); Anion Gap 4 mmol/L (6-16); Aspartate Aminotrans (AST/SGOT 23 U/L (12-37); Bilirubin, Total 0.5 mg/dL (0.1-1.0); Blood Urea Nitrogen 10 mg/dL (8-24); Bun/Creatinine Ratio 13.3 (12.0-20.0); CO2, Blood 31 mmol/L (21-32); Calcium, Blood 9.1 mg/dL (8.5-10.1); Chloride, Blood 102 mmol/L (98-108); Creatinine, Blood 0.75 mg/dL (0.40-1.00); Globulin, Blood 4.1 g/dL (2.2-4.0); Glomerular Filtration Rate >60 (60-); Glucose, Blood 107 mg/dL (70-99); Potassium, Blood 3.7 mmol/L (3.5-5.5); Sodium, Blood 137 mmol/L (136-145); Total Protein, Blood 7.4 g/dL (6.4-8.2)
--- NOTE | 2019-06-20 22:17 | NUR ---
DR. JC IN TO SEE PT AT THIS TIME. PLAN FOR SURGERY TOMORROW.
--- NOTE | 2019-06-21 04:34 | NUR ---
SHIFT SUMMARY PT A/OX4 WITH VSS. NPO SINCE MIDNIGHT. PAIN MANAGED WITH ICE THERAPY, REST, AND PER EMAR. REFUSED REPOSITIONING AND FOREST'S "UNTIL AFTER SURGERY." WEBBER PATENT AND DRAINING YELLOW URINE. IVF INFUSING PER EMAR. DR JC IN TO SEE PT AT START OF SHIFT, PLAN FOR SURGERY TODAY. WILL CONT TO MONITOR AND GIVE REPORT TO ONCOMING RN.
[2019-06-21 05:15] LABS: BASOPHILS ABSOLUTE AUTO 0.05 K/mm3 (0.00-0.23); BASOPHILS PERCENT AUTO 1 % (0-2); EOSINOPHILS ABSOLUTE AUTO 0.33 K/mm3 (0.00-0.68); EOSINOPHILS PERCENT AUTO 3 % (0-6); Hematocrit 34.8 % (33.0-51.0); Hemoglobin 10.6 g/dL (11.5-16.0); IMMATURE GRAN ABSOLUTE AUTO 0.04 K/mm3 (0.00-0.10); IMMATURE GRAN PERCENT AUTO 0 % (0-1); LYMPHOCYTES ABSOLUTE AUTO 2.17 K/mm3 (0.84-5.20); LYMPHOCYTES PERCENT AUTO 22 % (21-46); MONOCYTES ABSOLUTE AUTO 1.05 K/mm3 (0.16-1.47); MONOCYTES PERCENT AUTO 11 % (4-13); Mean Corpuscular HGB 27.8 pg (26.0-34.0); Mean Corpuscular HGB Conc 30.5 g/dL (31.5-36.5); Mean Corpuscular Volume 91 fL (80-100); Mean Platelet Volume 9.8 fL (9.1-12.4); NEUTROPHILS ABSOLUTE AUTO 6.36 K/mm3 (1.96-9.15); NEUTROPHILS PERCENT AUTO 64 % (41-73); Platelet Count 365 K/mm3 (150-400); RDW Coefficient Variation 16.8 % (11.7-14.2); RDW Standard Deviation 55.3 fL (35.1-46.3); Red Blood Cell Count 3.81 M/mm3 (3.80-5.20)
[2019-06-21 05:36] LABS: Prothrombin Time Results 10.7 Sec (9.7-11.5)
[2019-06-21 05:58] LABS: Alanine Aminotransfer (ALT/SGP 18 U/L (12-78); Albumin, Blood 3.1 g/dL (3.4-5.0); Albumin/Globulin Ratio 0.8 (0.8-1.8); Alk Phos 134 U/L (50-136); Anion Gap 3 mmol/L (6-16); Aspartate Aminotrans (AST/SGOT 17 U/L (12-37); Bilirubin, Total 0.3 mg/dL (0.1-1.0); Blood Urea Nitrogen 11 mg/dL (8-24); Bun/Creatinine Ratio 12.9 (12.0-20.0); CO2, Blood 32 mmol/L (21-32); Calcium, Blood 8.8 mg/dL (8.5-10.1); Chloride, Blood 104 mmol/L (98-108); Creatinine, Blood 0.85 mg/dL (0.40-1.00); Globulin, Blood 3.9 g/dL (2.2-4.0); Glomerular Filtration Rate >60 (60-); Glucose, Blood 110 mg/dL (70-99); Sodium, Blood 139 mmol/L (136-145)
--- NOTE | 2019-06-21 11:50 | NUR ---
PT TO DAY SURGERY VIA HOSPITAL BED
--- NOTE | 2019-06-21 11:56 | NUR ---
PT TRANSPORTED TO [facility]. AGREES WITH PLANNED SURGERY.LUNG SOUNDS CLEAR.
--- NOTE | 2019-06-21 12:41 | NUR ---
REPORT TO RADHA KAUR RN.
--- NOTE | 2019-06-21 16:30 | NUR ---
POST OP PT ARRIVES TO ROOM IN HOSPITAL BED. C/O HIGH PAIN ESPECIALLY WITH "SCIATICA" PAIN. REPOSITIONED. ICE PACKS APPLIED AFTER ASSESSING DRSG, BULKY DRSG W/ SLIGHT SHADOWING NOTED. PPP. WOUND ON LOWER EXT REMAINS WRAPPED. LUNGS CLEAR BUT DIM IN BASES. HRR.
[2019-06-22 03:53] LABS: BASOPHILS ABSOLUTE AUTO 0.06 K/mm3 (0.00-0.23); BASOPHILS PERCENT AUTO 1 % (0-2); EOSINOPHILS ABSOLUTE AUTO 0.23 K/mm3 (0.00-0.68); EOSINOPHILS PERCENT AUTO 2 % (0-6); Hematocrit 29.2 % (33.0-51.0); Hemoglobin 8.9 g/dL (11.5-16.0); IMMATURE GRAN ABSOLUTE AUTO 0.08 K/mm3 (0.00-0.10); IMMATURE GRAN PERCENT AUTO 1 % (0-1); LYMPHOCYTES ABSOLUTE AUTO 2.28 K/mm3 (0.84-5.20); LYMPHOCYTES PERCENT AUTO 18 % (21-46); MONOCYTES ABSOLUTE AUTO 1.09 K/mm3 (0.16-1.47); MONOCYTES PERCENT AUTO 9 % (4-13); Mean Corpuscular HGB 27.8 pg (26.0-34.0); Mean Corpuscular HGB Conc 30.5 g/dL (31.5-36.5); Mean Corpuscular Volume 91 fL (80-100); Mean Platelet Volume 9.6 fL (9.1-12.4); NEUTROPHILS ABSOLUTE AUTO 8.92 K/mm3 (1.96-9.15); NEUTROPHILS PERCENT AUTO 71 % (41-73); Platelet Count 304 K/mm3 (150-400); RDW Coefficient Variation 16.2 % (11.7-14.2); RDW Standard Deviation 52.8 fL (35.1-46.3); White Blood Cell Count 12.66 K/mm3 (4.00-11.30)
[2019-06-22 04:08] LABS: Albumin, Blood 2.7 g/dL (3.4-5.0); Anion Gap 4 mmol/L (6-16); Blood Urea Nitrogen 9 mg/dL (8-24); Bun/Creatinine Ratio 11.9 (12.0-20.0); CO2, Blood 30 mmol/L (21-32); Calcium, Blood 8.3 mg/dL (8.5-10.1); Chloride, Blood 102 mmol/L (98-108); Creatinine, Blood 0.76 mg/dL (0.40-1.00); Glomerular Filtration Rate >60 (60-); Glucose, Blood 116 mg/dL (70-99); Phosphorus, Blood 3.1 mg/dL (2.5-4.9); Potassium, Blood 3.5 mmol/L (3.5-5.5); Sodium, Blood 136 mmol/L (136-145)
--- NOTE | 2019-06-22 04:25 | NUR ---
SHIFT SUMMARY PT IS A/O X4. TOLERATING PO INTAKE. WEBBER PATENT, STAT LOCK IN PLACE. PT HAS BEEN REPOSITIONED MANY TIMES DURING THE SHIFT. PAIN MANAGEMENT HAS BEEN CHALLENGING; CURRENTLY MANAGING PAIN WITH IV AND PO PAIN MEDS. SEE EMAR. PT USES TRAPEZE TO ASSIST WITH REPOSITIONING. NO ACUTE CHANGES OVERNIGHT. ASSISTED WITH ADL'S PRN.
--- NOTE | 2019-06-22 16:25 | NUR ---
Initial spiritual care note: Marie was welcoming of conversation and prayer. She feels well-supported by her family and denied fears. She was appreciative of prayer and spiritual affirmation. She is hopeful for complete recovery.
--- NOTE | 2019-06-22 16:55 | NUR ---
SHIFT SUMMARY PATIENT UP WITH PT TODAY, TOLERATED WELL. PATIENT SLEPT THIS AFTERNOON AFTER NORCO ADMIN PER NEW DOSE ORDER. PATIENT CHANGED R CALF DRESSING "I'VE BEEN DOING IT AT HOME." DRESSING TO R HIP D&I; CIRC CHECKS WNL. TOLERATING PO. NO C/O AT THIS TIME.
--- NOTE | 2019-06-23 04:41 | NUR ---
SHIFT SUMMARY PT A/O X4. TOLERATING PO INTAKE. PT HAS TRANSFERRED FROM CHAIR TO BED AT THE START OF THE SHIFT. PT HAS BEEN REPOSITIONED MULT TIMES DURING THE NIGHT. PAIN MANAGED WITH PO PAIN MEDS PER ORDERS. TOLERATING PO INTAKE WELL. WEBBER HAS BEEN IN PLACE DURING THE NIGHT. NO ACUTE CHANGES OVERNIGHT. ASSISTED WITH ADL'S PRN.
[2019-06-23] MEDS ORDERED: Aspir 8181 MG PO (13:47)
[2019-06-23] MEDS ORDERED: Norco 5-325 Ta1 EACH PO (13:55)
--- NOTE | 2019-06-23 15:32 | NUR ---
PATIENT D/C'D HOME WITH DAUGHTER AT THIS TIME; STATES UNDERSTANDING OF MEDS, WOUND CARE, F/U APPT, ETC. PATIENT VOIDING WELL, TOLERATING PO, STATES PAIN CONTROLLED WITH NORCO. NO ACUTE CHANGES.
== END 2019-06-23 15:30 | disposition home or self-care (01) | DRG 481 ==
LOC: ER 10:01 → SURS 13:03
PROVIDERS: Emergency Medicine; Nurse Practitioner Acute Care; Orthopaedic Surgery; ADMIT Family Medicine
PROC: 0QS606Z Reposition Right Upper Femur with Intramedullary Internal Fixation Device, Open Approach (ICD-10-PCS; principal; 2019-06-21 14:45)
DX: S72.141A Displaced intertrochanteric fracture of right femur, initial encounter for closed fracture (principal); D62 Acute posthemorrhagic anemia; W19.XXXA Unspecified fall, initial encounter; M79.7 Fibromyalgia; I10 Essential (primary) hypertension; L40.50 Arthropathic psoriasis, unspecified; K21.9 Gastro-esophageal reflux disease without esophagitis; F32.9 Major depressive disorder, single episode, unspecified; E78.5 Hyperlipidemia, unspecified; G62.9 Polyneuropathy, unspecified; J45.20 Mild intermittent asthma, uncomplicated; F41.1 Generalized anxiety disorder; Z79.82 Long term (current) use of aspirin; Z88.0 Allergy status to penicillin
CPT/HCPCS: 36415; 51702; 71045; 73502; 80053; 80069; 81003; 85025; 85610; 93005; 93010; 96374-59; 96375-59; 97110; 97162; 97166; 97530; 97535; 99285-25; A9270-GY; C1713; C1769; J1170; J1650; J2250; J2405; J2704; J3010; J7030; J7120

== ENCOUNTER 2019-09-08 01:54 | Day surgery (SDC) | payer OTHER ==
[~2019-09-08 01:54] MED LIST changes: +Aspir 8181 MG PO; +Aspirin EC81 MG PO
[2019-09-08 15:07] LABS: BASOPHILS ABSOLUTE AUTO 0.04 K/mm3 (0.00-0.23); BASOPHILS PERCENT AUTO 0 % (0-2); EOSINOPHILS ABSOLUTE AUTO 0.12 K/mm3 (0.00-0.68); EOSINOPHILS PERCENT AUTO 1 % (0-6); Hematocrit 41.5 % (33.0-51.0); Hemoglobin 12.8 g/dL (11.5-16.0); IMMATURE GRAN ABSOLUTE AUTO 0.03 K/mm3 (0.00-0.10); IMMATURE GRAN PERCENT AUTO 0 % (0-1); LYMPHOCYTES ABSOLUTE AUTO 2.15 K/mm3 (0.84-5.20); LYMPHOCYTES PERCENT AUTO 23 % (21-46); MONOCYTES PERCENT AUTO 8 % (4-13); Mean Corpuscular HGB 28.3 pg (26.0-34.0); Mean Corpuscular HGB Conc 30.8 g/dL (31.5-36.5); Mean Corpuscular Volume 92 fL (80-100); Mean Platelet Volume 9.3 fL (9.1-12.4); NEUTROPHILS ABSOLUTE AUTO 6.33 K/mm3 (1.96-9.15); NEUTROPHILS PERCENT AUTO 67 % (41-73); Platelet Count 438 K/mm3 (150-400); RDW Coefficient Variation 14.9 % (11.7-14.2); RDW Standard Deviation 49.3 fL (35.1-46.3); Red Blood Cell Count 4.53 M/mm3 (3.80-5.20); White Blood Cell Count 9.47 K/mm3 (4.00-11.30)
== END 2019-09-08 17:04 | disposition home or self-care (01) ==
LOC: ATC 01:54
PROVIDERS: Internal Medicine Rheumatology
DX: L40.50 Arthropathic psoriasis, unspecified (principal); I10 Essential (primary) hypertension; K21.9 Gastro-esophageal reflux disease without esophagitis; Z88.0 Allergy status to penicillin; Z79.899 Other long term (current) drug therapy
CPT/HCPCS: 84450; 85025; 85651; 96413; 96415; J7050; Q5103

== ENCOUNTER 2019-12-14 00:43 | Day surgery (SDC) | payer OTHER ==
[2019-12-14 14:34] LABS: BASOPHILS ABSOLUTE AUTO 0.09 K/mm3 (0.00-0.23); BASOPHILS PERCENT AUTO 1 % (0-2); EOSINOPHILS ABSOLUTE AUTO 0.22 K/mm3 (0.00-0.68); EOSINOPHILS PERCENT AUTO 2 % (0-6); Hematocrit 43.8 % (33.0-51.0); Hemoglobin 13.8 g/dL (11.5-16.0); IMMATURE GRAN PERCENT AUTO 1 % (0-1); LYMPHOCYTES ABSOLUTE AUTO 2.84 K/mm3 (0.84-5.20); LYMPHOCYTES PERCENT AUTO 27 % (21-46); MONOCYTES ABSOLUTE AUTO 1.26 K/mm3 (0.16-1.47); MONOCYTES PERCENT AUTO 12 % (4-13); Mean Corpuscular HGB 29.9 pg (26.0-34.0); Mean Corpuscular HGB Conc 31.5 g/dL (31.5-36.5); Mean Corpuscular Volume 95 fL (80-100); Mean Platelet Volume 9.8 fL (9.1-12.4); NEUTROPHILS ABSOLUTE AUTO 6.05 K/mm3 (1.96-9.15); NEUTROPHILS PERCENT AUTO 57 % (41-73); Platelet Count 492 K/mm3 (150-400); RDW Coefficient Variation 15.9 % (11.7-14.2); RDW Standard Deviation 53.6 fL (35.1-46.3); Red Blood Cell Count 4.62 M/mm3 (3.80-5.20); White Blood Cell Count 10.56 K/mm3 (4.00-11.30)
== END 2019-12-14 16:32 | disposition home or self-care (01) ==
LOC: ATC 00:43
PROVIDERS: Internal Medicine Rheumatology
DX: L40.50 Arthropathic psoriasis, unspecified (principal); Z88.0 Allergy status to penicillin; Z79.899 Other long term (current) drug therapy; K21.9 Gastro-esophageal reflux disease without esophagitis; I10 Essential (primary) hypertension; J45.909 Unspecified asthma, uncomplicated; M15.9 Polyosteoarthritis, unspecified
CPT/HCPCS: 84450; 85025; 85651; 96413; 96415; J7050; Q5103

== ENCOUNTER 2019-12-14 16:52 | Emergency (ER) | payer OTHER ==
[~2019-12-14] VITALS: Ht 167.6 cm; Wt 93.9 kg
== END 2019-12-14 17:37 | disposition home or self-care (01) ==
LOC: ER 16:52
DX: G89.29 Other chronic pain (principal); M54.5 Low back pain; K21.9 Gastro-esophageal reflux disease without esophagitis; I10 Essential (primary) hypertension; F32.9 Major depressive disorder, single episode, unspecified; J45.909 Unspecified asthma, uncomplicated; Z88.0 Allergy status to penicillin; Z88.5 Allergy status to narcotic agent; Z79.82 Long term (current) use of aspirin; Z79.899 Other long term (current) drug therapy
CPT/HCPCS: 96372; 99283-25; A9270-GY; J1885

== ENCOUNTER 2020-01-31 02:50 | Day surgery (SDC) | payer OTHER | END 2020-01-31 12:00 | disposition home or self-care (01) | LOC: ATC 02:50 | DX: L40.50 Arthropathic psoriasis, unspecified (principal); M15.9 Polyosteoarthritis, unspecified; G89.29 Other chronic pain; M54.9 Dorsalgia, unspecified; K21.9 Gastro-esophageal reflux disease without esophagitis; F32.9 Major depressive disorder, single episode, unspecified; I10 Essential (primary) hypertension; J45.909 Unspecified asthma, uncomplicated; Z79.899 Other long term (current) drug therapy; Z88.0 Allergy status to penicillin; Z51.5 Encounter for palliative care | CPT/HCPCS: 96413; 96415; J7050; Q5103 ==

== ENCOUNTER 2020-03-13 00:17 | Day surgery (SDC) | payer OTHER | END 2020-03-13 22:44 | disposition home or self-care (01) | LOC: ATC 00:17 | DX: L40.50 Arthropathic psoriasis, unspecified (principal); M15.9 Polyosteoarthritis, unspecified; K21.9 Gastro-esophageal reflux disease without esophagitis; F32.9 Major depressive disorder, single episode, unspecified; I10 Essential (primary) hypertension; J45.909 Unspecified asthma, uncomplicated; Z88.0 Allergy status to penicillin; Z79.899 Other long term (current) drug therapy ==

== ENCOUNTER 2020-03-18 00:24 | Day surgery (SDC) | payer OTHER ==
--- NOTE | 2020-03-18 14:24 | NUR ---
PT DECLINES HER PRE MEDS.
== END 2020-03-18 17:02 | disposition home or self-care (01) ==
LOC: ATC 00:24
DX: L40.50 Arthropathic psoriasis, unspecified (principal); M89.49 Other hypertrophic osteoarthropathy, multiple sites; M54.30 Sciatica, unspecified side; K21.9 Gastro-esophageal reflux disease without esophagitis; E78.1 Pure hyperglyceridemia; F32.9 Major depressive disorder, single episode, unspecified; I10 Essential (primary) hypertension; G89.29 Other chronic pain; D50.9 Iron deficiency anemia, unspecified; Z79.899 Other long term (current) drug therapy; Z88.0 Allergy status to penicillin
CPT/HCPCS: 96413; 96415; J7050; Q5103

== ENCOUNTER 2020-04-29 00:31 | Day surgery (SDC) | payer OTHER ==
[2020-04-29 14:28] LABS: Hematocrit 38.4 % (33.0-51.0); Hemoglobin 12.2 g/dL (11.5-16.0); Mean Corpuscular HGB 29.3 pg (26.0-34.0); Mean Corpuscular HGB Conc 31.8 g/dL (31.5-36.5); Mean Corpuscular Volume 92 fL (80-100); Mean Platelet Volume 10.2 fL (9.1-12.4); Platelet Count 386 K/mm3 (150-400); RDW Coefficient Variation 15.2 % (11.7-14.2); RDW Standard Deviation 50.4 fL (35.1-46.3); Red Blood Cell Count 4.16 M/mm3 (3.80-5.20); White Blood Cell Count 6.26 K/mm3 (4.00-11.30)
[2020-04-29 15:12] LABS: BASOPHILS ABSOLUTE MAN 0.12 K/mm3 (0.00-0.23); BASOPHILS PERCENT MAN 2 % (0-2); EOSINOPHILS ABSOLUTE MAN 0.31 K/mm3 (0.00-0.68); EOSINOPHILS PERCENT MAN 5 % (0-6); LYMPHOCYTES PERCENT MAN 40 % (21-46); MONOCYTES ABSOLUTE MAN 0.37 K/mm3 (0.16-1.47); MONOCYTES PERCENT MAN 6 % (4-13); NEUTROPHILS ABSOLUTE MAN 2.94 K/mm3 (1.96-9.15); SEG NEUTROPHILS PERCENT MAN 47 % (41-73); TOTAL CELLS COUNTED 100
== END 2020-04-29 16:52 | disposition home or self-care (01) ==
LOC: ATC 00:31
PROVIDERS: Internal Medicine Rheumatology
DX: L40.50 Arthropathic psoriasis, unspecified (principal); M15.9 Polyosteoarthritis, unspecified; K21.9 Gastro-esophageal reflux disease without esophagitis; E78.1 Pure hyperglyceridemia; J45.909 Unspecified asthma, uncomplicated
CPT/HCPCS: 84450; 85025; 85651; 96413; 96415; A9270; J7050; Q5103

== ENCOUNTER 2020-06-13 00:40 | Day surgery (SDC) | payer OTHER ==
[2020-06-13 14:09] LABS: BASOPHILS ABSOLUTE AUTO 0.09 K/mm3 (0.00-0.23); BASOPHILS PERCENT AUTO 1 % (0-2); EOSINOPHILS PERCENT AUTO 5 % (0-6); Hematocrit 40.8 % (33.0-51.0); Hemoglobin 12.7 g/dL (11.5-16.0); Mean Corpuscular HGB 29.4 pg (26.0-34.0); Mean Corpuscular HGB Conc 31.1 g/dL (31.5-36.5); Mean Corpuscular Volume 94 fL (80-100); Platelet Count 414 K/mm3 (150-400); RDW Coefficient Variation 14.9 % (11.7-14.2); RDW Standard Deviation 51.6 fL (35.1-46.3); Red Blood Cell Count 4.32 M/mm3 (3.80-5.20); White Blood Cell Count 8.39 K/mm3 (4.00-11.30)
[2020-06-13 14:21] LABS: IMMATURE GRAN ABSOLUTE AUTO 0.05 K/mm3 (0.00-0.10); IMMATURE GRAN PERCENT AUTO 1 % (0-1); LYMPHOCYTES ABSOLUTE AUTO 2.61 K/mm3 (0.84-5.20); LYMPHOCYTES PERCENT AUTO 31 % (21-46); MONOCYTES ABSOLUTE AUTO 1.41 K/mm3 (0.16-1.47); MONOCYTES PERCENT AUTO 17 % (4-13); NEUTROPHILS ABSOLUTE AUTO 3.83 K/mm3 (1.96-9.15); NEUTROPHILS PERCENT AUTO 46 % (41-73)
== END 2020-06-13 16:16 | disposition home or self-care (01) ==
LOC: ATC 00:40
PROVIDERS: Internal Medicine Rheumatology
DX: L40.50 Arthropathic psoriasis, unspecified (principal); M15.9 Polyosteoarthritis, unspecified; K21.9 Gastro-esophageal reflux disease without esophagitis; E78.1 Pure hyperglyceridemia; M54.30 Sciatica, unspecified side; I10 Essential (primary) hypertension; J45.909 Unspecified asthma, uncomplicated; Z88.0 Allergy status to penicillin; Z85.41 Personal history of malignant neoplasm of cervix uteri; Z87.828 Personal history of other (healed) physical injury and trauma; Z90.710 Acquired absence of both cervix and uterus
CPT/HCPCS: 84450; 85025; 85651; 96413; 96415; J1745; J7050; Q5103

== ENCOUNTER 2020-07-31 03:13 | Day surgery (SDC) | payer OTHER ==
--- NOTE | 2020-07-31 08:25 | NUR ---
PT DECLINES PRE MEDS.
--- NOTE | 2020-07-31 10:20 | NUR ---
PT AGREES THAT THIS STUDENT CAN HELP CARE FOR THEM
== END 2020-07-31 11:50 | disposition home or self-care (01) ==
LOC: ATC 03:13
DX: L40.50 Arthropathic psoriasis, unspecified (principal); I10 Essential (primary) hypertension; K21.9 Gastro-esophageal reflux disease without esophagitis; J45.909 Unspecified asthma, uncomplicated; M15.9 Polyosteoarthritis, unspecified
CPT/HCPCS: 96413; 96415; A9270; J1745; J7050

== ENCOUNTER 2020-09-16 00:09 | Day surgery (SDC) | payer OTHER | END 2020-09-16 11:30 | disposition home or self-care (01) | LOC: ATC 00:09 | DX: L40.50 Arthropathic psoriasis, unspecified (principal); E78.1 Pure hyperglyceridemia; I10 Essential (primary) hypertension; D50.9 Iron deficiency anemia, unspecified; K21.9 Gastro-esophageal reflux disease without esophagitis; M79.7 Fibromyalgia; Z79.82 Long term (current) use of aspirin; Z85.41 Personal history of malignant neoplasm of cervix uteri | CPT/HCPCS: J1745; J7050 ==

== ENCOUNTER 2021-01-31 01:52 | Day surgery (SDC) | payer OTHER ==
--- NOTE | 2021-01-31 08:29 | NUR ---
LABS DRAWN FROM IV START PER PROTOCOL
[2021-01-31 08:49] LABS: BASOPHILS ABSOLUTE AUTO 0.11 K/mm3 (0.00-0.23); BASOPHILS PERCENT AUTO 1 % (0-2); EOSINOPHILS ABSOLUTE AUTO 0.37 K/mm3 (0.00-0.68); EOSINOPHILS PERCENT AUTO 5 % (0-6); Hematocrit 40.6 % (33.0-51.0); Hemoglobin 13.1 g/dL (11.5-16.0); IMMATURE GRAN ABSOLUTE AUTO 0.03 K/mm3 (0.00-0.10); IMMATURE GRAN PERCENT AUTO 0 % (0-1); LYMPHOCYTES ABSOLUTE AUTO 2.41 K/mm3 (0.84-5.20); LYMPHOCYTES PERCENT AUTO 31 % (21-46); MONOCYTES ABSOLUTE AUTO 1.43 K/mm3 (0.16-1.47); MONOCYTES PERCENT AUTO 18 % (4-13); Mean Corpuscular HGB 30.4 pg (26.0-34.0); Mean Corpuscular HGB Conc 32.3 g/dL (31.5-36.5); Mean Corpuscular Volume 94 fL (80-100); Mean Platelet Volume 10.2 fL (9.1-12.4); NEUTROPHILS ABSOLUTE AUTO 3.55 K/mm3 (1.96-9.15); NEUTROPHILS PERCENT AUTO 45 % (41-73); Platelet Count 477 K/mm3 (150-400); RDW Coefficient Variation 14.2 % (11.7-14.2); RDW Standard Deviation 48.4 fL (35.1-46.3); Red Blood Cell Count 4.31 M/mm3 (3.80-5.20)
== END 2021-01-31 11:08 | disposition home or self-care (01) ==
LOC: ATC 01:52
PROVIDERS: Internal Medicine Rheumatology
DX: L40.50 Arthropathic psoriasis, unspecified (principal); I10 Essential (primary) hypertension
CPT/HCPCS: 84450; 85025; 85651; A9270; J1745; J7050

== ENCOUNTER 2021-04-17 03:32 | Day surgery (SDC) | payer OTHER ==
[2021-04-17 10:03] LABS: BASOPHILS ABSOLUTE AUTO 0.04 K/mm3 (0.00-0.23); BASOPHILS PERCENT AUTO 1 % (0-2); EOSINOPHILS ABSOLUTE AUTO 0.25 K/mm3 (0.00-0.68); EOSINOPHILS PERCENT AUTO 4 % (0-6); Hematocrit 42.3 % (33.0-51.0); Hemoglobin 13.3 g/dL (11.5-16.0); IMMATURE GRAN ABSOLUTE AUTO 0.05 K/mm3 (0.00-0.10); IMMATURE GRAN PERCENT AUTO 1 % (0-1); LYMPHOCYTES ABSOLUTE AUTO 2.08 K/mm3 (0.84-5.20); LYMPHOCYTES PERCENT AUTO 32 % (21-46); MONOCYTES ABSOLUTE AUTO 0.79 K/mm3 (0.16-1.47); MONOCYTES PERCENT AUTO 12 % (4-13); Mean Corpuscular HGB 30.2 pg (26.0-34.0); Mean Corpuscular HGB Conc 31.4 g/dL (31.5-36.5); Mean Corpuscular Volume 96 fL (80-100); Mean Platelet Volume 10.2 fL (9.1-12.4); NEUTROPHILS ABSOLUTE AUTO 3.33 K/mm3 (1.96-9.15); NEUTROPHILS PERCENT AUTO 51 % (41-73); Platelet Count 386 K/mm3 (150-400); RDW Coefficient Variation 14.2 % (11.7-14.2); RDW Standard Deviation 48.1 fL (35.1-46.3); Red Blood Cell Count 4.41 M/mm3 (3.80-5.20); White Blood Cell Count 6.54 K/mm3 (4.00-11.30)
== END 2021-04-17 11:55 | disposition home or self-care (01) ==
LOC: ATC 03:32
PROVIDERS: Internal Medicine Rheumatology
DX: L40.50 Arthropathic psoriasis, unspecified (principal)
CPT/HCPCS: 84450; 85025; 85651; 96413; 96415; A9270; J1745; J7050

== ENCOUNTER 2021-05-29 00:28 | Day surgery (SDC) | payer OTHER ==
[~2021-05-29] VITALS: Wt 91.0 kg
--- NOTE | 2021-05-29 08:54 | NUR ---
LABS DRAWN FROM IV START PER PROTOCOL
[2021-05-29 09:38] LABS: BASOPHILS ABSOLUTE AUTO 0.06 K/mm3 (0.00-0.23); BASOPHILS PERCENT AUTO 1 % (0-2); EOSINOPHILS ABSOLUTE AUTO 0.37 K/mm3 (0.00-0.68); EOSINOPHILS PERCENT AUTO 4 % (0-6); Hematocrit 43.2 % (33.0-51.0); Hemoglobin 13.9 g/dL (11.5-16.0); IMMATURE GRAN ABSOLUTE AUTO 0.04 K/mm3 (0.00-0.10); IMMATURE GRAN PERCENT AUTO 0 % (0-1); LYMPHOCYTES ABSOLUTE AUTO 2.86 K/mm3 (0.84-5.20); LYMPHOCYTES PERCENT AUTO 31 % (21-46); MONOCYTES ABSOLUTE AUTO 1.15 K/mm3 (0.16-1.47); MONOCYTES PERCENT AUTO 13 % (4-13); Mean Corpuscular HGB 29.9 pg (26.0-34.0); Mean Corpuscular HGB Conc 32.2 g/dL (31.5-36.5); Mean Corpuscular Volume 93 fL (80-100); Mean Platelet Volume 10.1 fL (9.1-12.4); NEUTROPHILS ABSOLUTE AUTO 4.63 K/mm3 (1.96-9.15); NEUTROPHILS PERCENT AUTO 51 % (41-73); Platelet Count 418 K/mm3 (150-400); RDW Coefficient Variation 15.3 % (11.7-14.2); RDW Standard Deviation 50.9 fL (35.1-46.3); Red Blood Cell Count 4.65 M/mm3 (3.80-5.20); White Blood Cell Count 9.11 K/mm3 (4.00-11.30)
--- NOTE | 2021-05-29 10:09 | NUR ---
PT REFUSED PRE MEDS
== END 2021-05-29 12:14 | disposition home or self-care (01) ==
LOC: ATC 00:28
PROVIDERS: Internal Medicine Rheumatology
DX: L40.50 Arthropathic psoriasis, unspecified (principal)
CPT/HCPCS: 84450; 85025; 85651; 96413; 96415; J1745; J7050; Q5103

== ENCOUNTER 2021-07-21 00:41 | Day surgery (SDC) | payer OTHER | END 2021-07-21 11:21 | disposition home or self-care (01) | LOC: ATC 00:41 | DX: L40.50 Arthropathic psoriasis, unspecified (principal) | CPT/HCPCS: J7050; Q5103 ==

== ENCOUNTER 2021-09-15 00:19 | Day surgery (SDC) | payer OTHER ==
[~2021-09-15] VITALS: Wt 90.4 kg
[2021-09-15 14:54] LABS: BASOPHILS ABSOLUTE AUTO 0.07 K/mm3 (0.00-0.23); BASOPHILS PERCENT AUTO 1 % (0-2); EOSINOPHILS ABSOLUTE AUTO 0.29 K/mm3 (0.00-0.68); EOSINOPHILS PERCENT AUTO 4 % (0-6); Hematocrit 39.7 % (33.0-51.0); Hemoglobin 12.6 g/dL (11.5-16.0); IMMATURE GRAN ABSOLUTE AUTO 0.03 K/mm3 (0.00-0.10); IMMATURE GRAN PERCENT AUTO 0 % (0-1); LYMPHOCYTES ABSOLUTE AUTO 2.06 K/mm3 (0.84-5.20); LYMPHOCYTES PERCENT AUTO 25 % (21-46); MONOCYTES PERCENT AUTO 5 % (4-13); Mean Corpuscular HGB 30.1 pg (26.0-34.0); Mean Corpuscular HGB Conc 31.7 g/dL (31.5-36.5); Mean Corpuscular Volume 95 fL (80-100); Mean Platelet Volume 9.8 fL (9.1-12.4); NEUTROPHILS ABSOLUTE AUTO 5.48 K/mm3 (1.96-9.15); NEUTROPHILS PERCENT AUTO 66 % (41-73); Platelet Count 407 K/mm3 (150-400); RDW Coefficient Variation 14.2 % (11.7-14.2); RDW Standard Deviation 47.9 fL (35.1-46.3); Red Blood Cell Count 4.19 M/mm3 (3.80-5.20); White Blood Cell Count 8.33 K/mm3 (4.00-11.30)
== END 2021-09-15 17:00 | disposition home or self-care (01) ==
LOC: ATC 00:19
PROVIDERS: Internal Medicine Rheumatology
DX: L40.50 Arthropathic psoriasis, unspecified (principal); J45.909 Unspecified asthma, uncomplicated; Z85.41 Personal history of malignant neoplasm of cervix uteri; Z88.0 Allergy status to penicillin
CPT/HCPCS: 84450; 85025; 85651; 96413; 96415; J7050; Q5103

== ENCOUNTER 2022-01-19 01:59 | Day surgery (SDC) | payer OTHER | END 2022-01-19 17:06 | disposition home or self-care (01) | LOC: ATC 01:59 | DX: L40.50 Arthropathic psoriasis, unspecified (principal); Z88.0 Allergy status to penicillin; K21.9 Gastro-esophageal reflux disease without esophagitis; F32.9 Major depressive disorder, single episode, unspecified; I10 Essential (primary) hypertension; D50.9 Iron deficiency anemia, unspecified | CPT/HCPCS: 96413; 96415; J7050; Q5103 ==

== ENCOUNTER 2022-02-01 10:32 | Emergency (ER) | payer OTHER ==
[2022-02-01] MEDS ORDERED: FLUTICASONE PRO12 G1 INH (11:02)
[2022-02-01] MEDS ORDERED: Prilosec Otc20 MG PO (11:02)
[2022-02-01] MEDS ORDERED: Vistaril50 MG PO (11:02)
[2022-02-01] MEDS ORDERED: DOXE10 PO (11:03)
[2022-02-01] MEDS ORDERED: BACLOFEN10 M1 PO (11:03)
[2022-02-01] MEDS ORDERED: FOLI1 PO (11:03)
[2022-02-01] MEDS ORDERED: KLOR-CON 1010 ME2 PO (11:04)
[2022-02-01] MEDS ORDERED: PRED10 PO (12:31)
== END 2022-02-01 12:41 | disposition home or self-care (01) ==
DX: J21.0 Acute bronchiolitis due to respiratory syncytial virus (principal); K21.9 Gastro-esophageal reflux disease without esophagitis; I10 Essential (primary) hypertension; Z79.82 Long term (current) use of aspirin; Z79.899 Other long term (current) drug therapy; Z88.0 Allergy status to penicillin; Z20.822 Contact with and (suspected) exposure to COVID-19

== ENCOUNTER 2022-02-04 08:03 | Inpatient (IN) | payer OTHER ==
[~2022-02-04] VITALS: Ht 165.1 cm; Wt 85.4 kg
[~2022-02-04 08:03] MED LIST changes: +BACLOFEN10 M1 PO; +Flovent 220 Ora12 GM INH; +KLOR-CON 1010 ME2 PO; +PRED10 PO; +Prilosec Otc20 MG PO; +Vistaril50 MG PO
[2022-02-04 09:06] LABS: BASOPHILS ABSOLUTE AUTO 0.08 K/mm3 (0.00-0.23); BASOPHILS PERCENT AUTO 0 % (0-2); EOSINOPHILS ABSOLUTE AUTO 0.27 K/mm3 (0.00-0.68); EOSINOPHILS PERCENT AUTO 1 % (0-6); Hemoglobin 10.7 g/dL (11.5-16.0); IMMATURE GRAN ABSOLUTE AUTO 0.27 K/mm3 (0.00-0.10); IMMATURE GRAN PERCENT AUTO 1 % (0-1); LYMPHOCYTES ABSOLUTE AUTO 0.76 K/mm3 (0.84-5.20); LYMPHOCYTES PERCENT AUTO 3 % (21-46); MONOCYTES ABSOLUTE AUTO 0.89 K/mm3 (0.16-1.47); MONOCYTES PERCENT AUTO 3 % (4-13); Mean Corpuscular HGB 29.6 pg (26.0-34.0); Mean Corpuscular HGB Conc 32.4 g/dL (31.5-36.5); Mean Corpuscular Volume 91 fL (80-100); Mean Platelet Volume 9.9 fL (9.1-12.4); NEUTROPHILS ABSOLUTE AUTO 28.47 K/mm3 (1.96-9.15); NEUTROPHILS PERCENT AUTO 93 % (41-73); Platelet Count 426 K/mm3 (150-400); RDW Coefficient Variation 15.4 % (11.7-14.2); RDW Standard Deviation 50.5 fL (35.1-46.3); Red Blood Cell Count 3.62 M/mm3 (3.80-5.20); White Blood Cell Count 30.74 K/mm3 (4.00-11.30)
[2022-02-04 09:15] LABS: Base Excess Venous -0.6 mmol/L; Bicarbonate Venous 22.8 mmol/L (24.0-30.0); PCO2 Venous 61.1 mmHg (38-42); PO2 Venous 48.9 mmHg (38-42)
[2022-02-04 09:16] LABS: pH Blood Venous 7.25 (7.34-7.37)
[2022-02-04 09:21] LABS: Albumin, Blood 2.8 g/dL (3.4-5.0); Albumin/Globulin Ratio 0.6 (0.8-1.8); Bilirubin, Direct 0.1 mg/dL (0.0-0.3); Bilirubin, Indirect 0.2 mg/dL (0.1-0.7); Bilirubin, Total 0.3 mg/dL (0.1-1.0); Bun/Creatinine Ratio 31.4 (12.0-20.0); Calcium, Blood 8.9 mg/dL (8.5-10.1); Creatinine, Blood 1.21 mg/dL (0.40-1.00); Globulin, Blood 4.5 g/dL (2.2-4.0); Magnesium, Blood 2.5 mg/dL (1.6-2.4); Potassium, Blood 3.9 mmol/L (3.5-5.5); Total Protein, Blood 7.3 g/dL (6.4-8.2)
[2022-02-04 10:22] LABS: Influenza A, PCR NEGATIVE (NEGATIVE); Influenza B, PCR NEGATIVE (NEGATIVE); SARS-Cov-2 (COVID-19) PCR, MMC NEGATIVE (NEGATIVE)
[2022-02-04 10:24] LABS: Resp Syncytial Virus, PCR POSITIVE (NEGATIVE)
[2022-02-04 14:03] LABS: Base Excess Venous 0.3 mmol/L; Bicarbonate Venous 24.2 mmol/L (24.0-30.0); PCO2 Venous 51.3 mmHg (38-42); pH Blood Venous 7.32 (7.34-7.37)
[2022-02-04] MEDS ORDERED: ALBU90OI INH (16:09)
[2022-02-04] MEDS ORDERED: INFLECTRA100 MG IV (16:14)
[2022-02-04] MEDS ORDERED: METTREX2.5 PO (16:24)
[2022-02-04] MEDS ORDERED: MIRALAX17 GM PO (16:25)
[2022-02-04] MEDS ORDERED: NARCAN4 M1 (16:34)
--- NOTE | 2022-02-04 18:35 | NUR ---
PT ARRIVED FROM ER THIS AFTERNOON ON BIPAP. PT HAS SINCE BEEN CHANGED TO HUMIDIFIED OXYGEN AT 10L WITH SPO2 GREATER THAN 92%. PT IS ALERT TALKING IN FULL SENTENCES. SHE HAS A VERY PRODUCTIVE COUGH WITH BROWIN SPUTUM. PT WITH HX OF A.D.D. IT IS DIFFICULT FOR HER TO CONCENTRATE OR BE STILL SHE DOES PULL AT LINES BUT IS REDIRECTABLE. VSS. DENIES CP, REPORTS IMPROVEMENT IN SOB SINCE ARRIVAL TO PCU. DR ORANTES CALLED THIS EVENING FOR ADDITIONAL COUGH SUPPRESSANTS. PT WITH PUREWICK THAT IS SET TO 60MM SUCTION.
[2022-02-05 03:28] LABS: Hematocrit 30.2 % (33.0-51.0); Hemoglobin 9.9 g/dL (11.5-16.0); Mean Corpuscular HGB 29.7 pg (26.0-34.0); Mean Corpuscular HGB Conc 32.8 g/dL (31.5-36.5); Mean Corpuscular Volume 91 fL (80-100); Mean Platelet Volume 9.5 fL (9.1-12.4); Platelet Count 355 K/mm3 (150-400); RDW Coefficient Variation 15.9 % (11.7-14.2); RDW Standard Deviation 51.6 fL (35.1-46.3); Red Blood Cell Count 3.33 M/mm3 (3.80-5.20); White Blood Cell Count 32.43 K/mm3 (4.00-11.30)
[2022-02-05 03:46] LABS: Albumin, Blood 2.2 g/dL (3.4-5.0); Albumin/Globulin Ratio 0.5 (0.8-1.8); Bilirubin, Total 0.2 mg/dL (0.1-1.0); Bun/Creatinine Ratio 25.7 (12.0-20.0); Calcium, Blood 8.8 mg/dL (8.5-10.1); Creatinine, Blood 0.74 mg/dL (0.40-1.00); Globulin, Blood 4.3 g/dL (2.2-4.0); Magnesium, Blood 2.5 mg/dL (1.6-2.4); Potassium, Blood 3.9 mmol/L (3.5-5.5); Total Protein, Blood 6.5 g/dL (6.4-8.2)
--- NOTE | 2022-02-05 03:56 | NUR ---
SHIFT SUMMARY: PT REMAINS ALERT AND ORIENTED X4, ABLE TO FOLLOW COMMANDS AND MAKE NEEDS KNOWN. FIDGETY AND RESTLESS AT TIMES. BP STABLE, HR SR 80'S, AFEBRILE, CURRENTLY ON 8L HIFLOW SATING >94%. RESPIRATIONS LABORED WITH ACTIVITY. PT HAVING HARSH COUGH, ABLE TO COUGH UP THICK YELLOW SECRETIONS, EDUCATED ON SUCTIONING. PULSES STRONG AND EQUAL. NS GTT @125 MLH/HR IN ELLEN. PT INC OF URINE AND BOWEL. 1 BM THIS SHIFT. ATTENDS CHANGED THROUGHOUT THE NIGHT. PT ABLE TO REPOS IND IN BED. BED IN LOW, ALARM ON, CALL LIGHT IN REACH, WILL REPORT TO ONCOMING RN.
[2022-02-05 04:05] LABS: BAND PERCENT MAN 8 % (0-8); BASOPHILS PERCENT MAN 0 % (0-2); EOSINOPHILS PERCENT MAN 0 % (0-6); LYMPHOCYTES ABSOLUTE MAN 0.32 K/mm3 (0.84-5.20); LYMPHOCYTES PERCENT MAN 1 % (21-46); MONOCYTES ABSOLUTE MAN 0.64 K/mm3 (0.16-1.47); MONOCYTES PERCENT MAN 2 % (4-13); NEUTROPHILS ABSOLUTE MAN 31.45 K/mm3 (1.96-9.15); SEG NEUTROPHILS PERCENT MAN 89 % (41-73); TOTAL CELLS COUNTED 100
--- NOTE | 2022-02-05 09:33 | NUR ---
Initial Assessment: Patient is alert and oriented, she is very restless-pt states this is chronic she has ADD. She denies pain at this time. HR in the 80s, SR with PACs and PJCs. LS DIM T/O with some coarse crackles. She is coughing up copious amounts of clear sputum, tessalon pearls given for cough. BT+. VSS. PPP. AM meds given at this time. MD at bedside-stool sample for C-Diff ordered. Pt started to have diarrhea after starting a course of ABX at home and has history of C-Diff. Sputum sample ordered as well. Patient denies other needs at this time. Call light in reach.
--- NOTE | 2022-02-05 14:45 | NUR ---
Update: Patient is resting in bed. Patient assisted to the recliner. Bed bath and linen change complete. Patient assisted back to bed, states she wants to take a nap. Call light in reach. Will continue to monitor.
--- NOTE | 2022-02-05 19:23 | NUR ---
SUMMARY: Patient has been alert and oriented T/O the shift. She has been restless in the bed, hx add. HRR, SR in the PACs and PJCs. LS DIM T/O, occasional exp wheezing. Biox has been stable, I was able to titrate her oxygen from 5-4L this shift with oxygen staurations staying in the 95% range unless she is coughing or with activity. BT+, pt started to have diarrhea as an outpatient after starting antibiotics as an outpatient. C-DIff ordered, pt has not had a BM yet today. VSS. PT was able to get OOB to the recliner for a short amount of time today. No acute changes this shift. Report given to Vonda whitehead RN.
--- NOTE | 2022-02-06 06:33 | NUR ---
NO ACUTE EVENTS OVERNIGHT WITH THE EXCEPTION OF AN INCREASE IN SUPPLEMENTAL OXYGEN FROM 4 LPM PER NASAL CANNULA TO 5 LPM TO MAINTAIN SpO2 GREATER THAN 92%. MS. EVANS CONTINUES TO HAVE A FREQUENT, HARSH, PRODUCTIVE COUGH OF VELASQUEZ SPUTUM. PRN MEDICATIONS ADMINISTERED ORDERED FOR COUGH RELIEF. COIUGH IS EXACERBATED WITH MINIMAL ACTIVITY. SLEEP HAS BEEN SPORADIC THROUGHOUT THE NIGHT. PATIENT DOES REPORT STRESS INCONTINENCE WITH HER COUGH, THIS IS A CHRONIC ISSUE. SHE IS ABLE TO STAND AT THE SIDE OF THE BED WITH USE OF WALKER FOR STEADYING HERSELF. SHE ALSO REPORTS THAT HER APPETITE IS IMPROVING SLIGHTLY. MOSTLY, SHE IS JUST TIRED FROM LACK OF SLEEP SECONDARY TO FREQUENCY OF HER COUGH.
[2022-02-06 10:11] LABS: BASOPHILS ABSOLUTE AUTO 0.06 K/mm3 (0.00-0.23); BASOPHILS PERCENT AUTO 0 % (0-2); EOSINOPHILS ABSOLUTE AUTO 0.12 K/mm3 (0.00-0.68); EOSINOPHILS PERCENT AUTO 1 % (0-6); Hematocrit 34.8 % (33.0-51.0); Hemoglobin 11.2 g/dL (11.5-16.0); IMMATURE GRAN ABSOLUTE AUTO 0.35 K/mm3 (0.00-0.10); IMMATURE GRAN PERCENT AUTO 2 % (0-1); LYMPHOCYTES ABSOLUTE AUTO 0.89 K/mm3 (0.84-5.20); LYMPHOCYTES PERCENT AUTO 4 % (21-46); MONOCYTES ABSOLUTE AUTO 0.95 K/mm3 (0.16-1.47); MONOCYTES PERCENT AUTO 4 % (4-13); Mean Corpuscular HGB 29.2 pg (26.0-34.0); Mean Corpuscular HGB Conc 32.2 g/dL (31.5-36.5); Mean Corpuscular Volume 91 fL (80-100); NEUTROPHILS ABSOLUTE AUTO 19.08 K/mm3 (1.96-9.15); NEUTROPHILS PERCENT AUTO 89 % (41-73); Platelet Count 405 K/mm3 (150-400); RDW Coefficient Variation 16.1 % (11.7-14.2); RDW Standard Deviation 53.1 fL (35.1-46.3); Red Blood Cell Count 3.84 M/mm3 (3.80-5.20); White Blood Cell Count 21.45 K/mm3 (4.00-11.30)
[2022-02-06 10:14] LABS: Albumin/Globulin Ratio 0.4 (0.8-1.8); Bilirubin, Total 0.2 mg/dL (0.1-1.0); Bun/Creatinine Ratio 27.6 (12.0-20.0); Calcium, Blood 9.4 mg/dL (8.5-10.1); Creatinine, Blood 0.62 mg/dL (0.40-1.00); Globulin, Blood 4.5 g/dL (2.2-4.0); Magnesium, Blood 2.2 mg/dL (1.6-2.4); Potassium, Blood 3.6 mmol/L (3.5-5.5); Total Protein, Blood 6.5 g/dL (6.4-8.2)
--- NOTE | 2022-02-06 11:48 | NUR ---
TRANSFER FROM PCU TO MEDICAL: PT ARRIVED TO MEDICAL FLOOR FROM PCU VIA WHEELCHAIR. SHE ARRIVED WITH 2 ANTIBIOTICS RUNNING. PT ON HIGH FLOW AT 4 LITERS. PT HAVING SEVERE COUGHING. PROVIDED WATER AND EXTRA PILLOWS FOR COMFORT WITH BREATHING. WILL CONTINUE TO MONITOR.
[2022-02-06 12:53] LABS: C DIFFICILE DNA NEGATIVE (Negative)
--- NOTE | 2022-02-06 19:21 | NUR ---
SHIFT SUMMARY: PT CONTINUES TO BE ALERT AND ORIENTED X4. CURRENTLY ON 5 LITERS AND TOLERATING WELL. PT CONTINUES TO HAVE A HARSH COUGH WHEN AWAKE. GAVE PT A DOSE OF TENSALON AND HER COUGH DROPS. STATED THEY HELPED WITH HER COUGH. PT IS HAVING LOOSE STOOLS. ASSISTED HER WITH THE BEDSIDE COMMODE TWICE THIS SHIFT. APPLIED SCD AND CONTINUOUS PULSE OX. PT POWERGLIDE AND IV FLUSHING WITHOUT TENDERNESS OR REDNESS. CALL LIGHT IN REACH. BED IN LOWEST POSITION.
--- NOTE | 2022-02-07 05:38 | NUR ---
Assumed care of pt at 2100. A/Ox4. Maintains above 92% on 5L NC. LS coarse upper and dim at bases. Harsh/loose cough noted. SR w/PAC and PJC's on tele. 1+ pitting edema to BLE. Patient reports stress incontinence, attends in place. VSS. No acute events, will report to daysgian [facility].
[2022-02-07 05:51] LABS: Hematocrit 29.2 % (33.0-51.0); Hemoglobin 9.6 g/dL (11.5-16.0); Mean Corpuscular HGB 29.6 pg (26.0-34.0); Mean Corpuscular HGB Conc 32.9 g/dL (31.5-36.5); Mean Corpuscular Volume 90 fL (80-100); Mean Platelet Volume 9.9 fL (9.1-12.4); Platelet Count 415 K/mm3 (150-400); RDW Coefficient Variation 15.9 % (11.7-14.2); RDW Standard Deviation 52.1 fL (35.1-46.3); Red Blood Cell Count 3.24 M/mm3 (3.80-5.20)
[2022-02-07 06:20] LABS: Albumin, Blood 1.9 g/dL (3.4-5.0); Albumin/Globulin Ratio 0.5 (0.8-1.8); Bilirubin, Total 0.2 mg/dL (0.1-1.0); Bun/Creatinine Ratio 23.5 (12.0-20.0); Calcium, Blood 8.9 mg/dL (8.5-10.1); Creatinine, Blood 0.6 mg/dL (0.40-1.00); Total Protein, Blood 5.9 g/dL (6.4-8.2)
[2022-02-07 06:24] LABS: BASOPHILS PERCENT MAN 0 % (0-2); EOSINOPHILS PERCENT MAN 0 % (0-6); LYMPHOCYTES ABSOLUTE MAN 0.35 K/mm3 (0.84-5.20); LYMPHOCYTES PERCENT MAN 3 % (21-46); MONOCYTES ABSOLUTE MAN 0.59 K/mm3 (0.16-1.47); MONOCYTES PERCENT MAN 5 % (4-13); NEUTROPHILS ABSOLUTE MAN 10.85 K/mm3 (1.96-9.15); SEG NEUTROPHILS PERCENT MAN 92 % (41-73); TOTAL CELLS COUNTED 100
--- NOTE | 2022-02-07 16:28 | NUR ---
PT IS A/OX4, PLEASANT AND COOPERATIVE. PT IS UP TO THE BSC WITH ASSIST. PT HAD SOME LOOSE STOOLS IN HER ATTENDS THIS AM DUE TO UNCONTROLED COUGHING. PT WAS MEDICATED FOR COUGH T/O THE DAY. PT WAS GIVEN HURRICANE SPRAY IN THE MOUTH AFTER LUNCH DUE TO SORE MOUTH, PT REPORTED THAT THE SPRAY HELPED. THE PT WAS ON 5L/MIN O2 VIA NC THIS AM TO MAINTAIN O2 SAT'S >88%, PT HAS BEEN TITRATED TO 3L/MIN THIS AFTERNOON AND SO FAR HAS MAINTAINED O2 SAT'S > 90%. FAMILY WAS IN TO SEE THE PT TODAY. CALL LIGHT IN REACH. WILL CONTINUE TO MONITOR AND ASSESS FOR CHANGES
--- NOTE | 2022-02-08 03:26 | NUR ---
Patient resting in bed, no complaints of pain or discomfort.
[2022-02-08 05:58] LABS: Hematocrit 33.2 % (33.0-51.0); Hemoglobin 10.9 g/dL (11.5-16.0); Mean Corpuscular HGB 29.5 pg (26.0-34.0); Mean Corpuscular HGB Conc 32.8 g/dL (31.5-36.5); Mean Corpuscular Volume 90 fL (80-100); Mean Platelet Volume 9.9 fL (9.1-12.4); Platelet Count 451 K/mm3 (150-400); RDW Coefficient Variation 15.9 % (11.7-14.2); RDW Standard Deviation 52.3 fL (35.1-46.3); Red Blood Cell Count 3.69 M/mm3 (3.80-5.20); White Blood Cell Count 10.65 K/mm3 (4.00-11.30)
[2022-02-08 06:54] LABS: Albumin/Globulin Ratio 0.5 (0.8-1.8); Bilirubin, Total 0.2 mg/dL (0.1-1.0); Bun/Creatinine Ratio 30.4 (12.0-20.0); Creatinine, Blood 0.56 mg/dL (0.40-1.00); Globulin, Blood 4.3 g/dL (2.2-4.0); Total Protein, Blood 6.3 g/dL (6.4-8.2)
--- NOTE | 2022-02-08 18:01 | NUR ---
DAYSHIFT SUMMARY Patient continues to have productive/hacking cough, PRNs given for cough. IV ABX administred. IV steriods changed to PO. Requiring 4L oxygen to maintain saturations. Patient refused evening neb treatments, complained of feeling jittery & RLS. Ativan given for anixety, patient painful, anxious from her hacking cough. No other events, will continue plan of care, and manage symptoms.
--- NOTE | 2022-02-09 03:28 | NUR ---
Patient resting in room, O2 in place, no complaints of pain or discomfort.
[2022-02-09 05:10] LABS: BASOPHILS ABSOLUTE AUTO 0.02 K/mm3 (0.00-0.23); BASOPHILS PERCENT AUTO 0 % (0-2); EOSINOPHILS ABSOLUTE AUTO 0.03 K/mm3 (0.00-0.68); EOSINOPHILS PERCENT AUTO 0 % (0-6); Hematocrit 33.7 % (33.0-51.0); Hemoglobin 11.2 g/dL (11.5-16.0); IMMATURE GRAN ABSOLUTE AUTO 0.08 K/mm3 (0.00-0.10); IMMATURE GRAN PERCENT AUTO 1 % (0-1); LYMPHOCYTES ABSOLUTE AUTO 2.08 K/mm3 (0.84-5.20); LYMPHOCYTES PERCENT AUTO 22 % (21-46); MONOCYTES ABSOLUTE AUTO 1.63 K/mm3 (0.16-1.47); MONOCYTES PERCENT AUTO 17 % (4-13); Mean Corpuscular HGB 29.5 pg (26.0-34.0); Mean Corpuscular HGB Conc 33.2 g/dL (31.5-36.5); Mean Corpuscular Volume 89 fL (80-100); Mean Platelet Volume 9.5 fL (9.1-12.4); NEUTROPHILS ABSOLUTE AUTO 5.71 K/mm3 (1.96-9.15); NEUTROPHILS PERCENT AUTO 60 % (41-73); Platelet Count 444 K/mm3 (150-400); RDW Coefficient Variation 15.6 % (11.7-14.2); RDW Standard Deviation 50.4 fL (35.1-46.3); White Blood Cell Count 9.55 K/mm3 (4.00-11.30)
[2022-02-09 05:34] LABS: Albumin, Blood 2.1 g/dL (3.4-5.0); Albumin/Globulin Ratio 0.5 (0.8-1.8); Bilirubin, Total 0.4 mg/dL (0.1-1.0); Bun/Creatinine Ratio 23.3 (12.0-20.0); Calcium, Blood 8.7 mg/dL (8.5-10.1); Creatinine, Blood 0.64 mg/dL (0.40-1.00); Globulin, Blood 4.1 g/dL (2.2-4.0); Potassium, Blood 3.6 mmol/L (3.5-5.5); Total Protein, Blood 6.2 g/dL (6.4-8.2)
--- NOTE | 2022-02-10 03:44 | NUR ---
SHIFT SUMMARY NO OVERNIGHT EVENTS. ON 5LO2, SPO2 90-97%. PT HAS STRONG NONPRODUCTIVE COUGH, REQUESTING COUGH MEDICATION, SEE MAR. REPORTS DYSPNEA WITH EXERTION. PT ABLE TO USE BEDSIDE COMMODE INDEPENDENTLY. REPORTS LESS LOOSE STOOLS THIS SHIFT. CONTINUES IV ABX. PT ABLE TO MAKE NEEDS KNOWN, CALL LIGHT IN REACH.
[2022-02-10 05:50] LABS: Hematocrit 39.3 % (33.0-51.0); Hemoglobin 12.8 g/dL (11.5-16.0); Mean Corpuscular HGB 29.1 pg (26.0-34.0); Mean Corpuscular HGB Conc 32.6 g/dL (31.5-36.5); Mean Corpuscular Volume 89 fL (80-100); Mean Platelet Volume 9.9 fL (9.1-12.4); Platelet Count 462 K/mm3 (150-400); RDW Coefficient Variation 15.7 % (11.7-14.2); RDW Standard Deviation 50.3 fL (35.1-46.3); White Blood Cell Count 9.21 K/mm3 (4.00-11.30)
[2022-02-10 05:54] LABS: Base Excess Venous 10.2 mmol/L; Bicarbonate Venous 32.5 mmol/L (24.0-30.0); PCO2 Venous 48.4 mmHg (38-42); pH Blood Venous 7.46 (7.34-7.37)
[2022-02-10 06:24] LABS: Albumin, Blood 2.3 g/dL (3.4-5.0); Albumin/Globulin Ratio 0.5 (0.8-1.8); Bilirubin, Total 0.4 mg/dL (0.1-1.0); Bun/Creatinine Ratio 20.4 (12.0-20.0); Creatinine, Blood 0.69 mg/dL (0.40-1.00); Globulin, Blood 4.2 g/dL (2.2-4.0); Potassium, Blood 3.9 mmol/L (3.5-5.5); Total Protein, Blood 6.5 g/dL (6.4-8.2)
[2022-02-10 06:30] LABS: BASOPHILS PERCENT MAN 0 % (0-2); EOSINOPHILS ABSOLUTE MAN 0.27 K/mm3 (0.00-0.68); EOSINOPHILS PERCENT MAN 3 % (0-6); LYMPHOCYTES ABSOLUTE MAN 2.21 K/mm3 (0.84-5.20); LYMPHOCYTES PERCENT MAN 24 % (21-46); MONOCYTES ABSOLUTE MAN 1.28 K/mm3 (0.16-1.47); MONOCYTES PERCENT MAN 14 % (4-13); NEUTROPHILS ABSOLUTE MAN 5.43 K/mm3 (1.96-9.15); SEG NEUTROPHILS PERCENT MAN 59 % (41-73); TOTAL CELLS COUNTED 100
--- NOTE | 2022-02-10 16:44 | NUR ---
SHIFT SUMMARY PATIENT IS ALERT AND ORIENTED. PATIENT HAS BEEN IND IN ROOM THIS SHIFT. PATIENT HAS NOT HAD ANY ACUTE EVENTS THIS SHIFT. VITAL SIGNS REVIEWED. PATIENT IS ON 2L NC. PATIENT HAS HAD NO COMPLAINTS OF PAIN, NAUSEA, SOB OR VOMITTING THIS SHIFT. PATIENT HAS HAD A STRONG PRODUCTIVE COUGH. PATIENT HAS COUGH MEDICATION AVAILABLE FROM PHARMACY. BED IN LOCKED AND LOWEST POSITION. CALL LIGHT IN PLACE. WILL MONITOR UNTIL SHIFT CHANGE.
--- NOTE | 2022-02-11 05:38 | NUR ---
AT ABOUT 0525 PATIENT ACCIDENTALLY TORE OUT POWERGLIDE THAT WAS PLACED IN ELLEN. PATIENT ROLLED OVER ONTO RIGHT SIDE AND IT CAUGHT ON THE BED. CATHETER TIP INTACT. BLEEDING MANAGED WITH 4X4s AND GAUZE. PATIENT DOES NOT COMPLAIN OF PAIN. IV LEVOFLOXACIN DUE AT 0900, OTHERWISE ONLY IV MEDS DUE ARE PRN.
[2022-02-11 09:47] LABS: Albumin, Blood 2.4 g/dL (3.4-5.0); Albumin/Globulin Ratio 0.6 (0.8-1.8); Bilirubin, Total 0.3 mg/dL (0.1-1.0); Bun/Creatinine Ratio 19.8 (12.0-20.0); Calcium, Blood 8.8 mg/dL (8.5-10.1); Creatinine, Blood 0.81 mg/dL (0.40-1.00); Globulin, Blood 3.9 g/dL (2.2-4.0); Potassium, Blood 4.3 mmol/L (3.5-5.5); Total Protein, Blood 6.3 g/dL (6.4-8.2)
[2022-02-11] MEDS ORDERED: NYSTATIN100000 U10 MT (13:03)
[2022-02-11] MEDS ORDERED: PRED20 PO (13:04)
--- NOTE | 2022-02-11 16:34 | NUR ---
DISCHARGE NOTE- PT WAS GIVEN VERBAL AND WRITTEN DISCHARGE INSTRUCTIONS AND ACKNOWLEDGED UNDERSTANDING OF THEM. PT HAD NO IV AT THE TIME OF DSCHARGE AND HAD FULLY DRESSED AND WAS READY TO GO, FAMILY BROUGHT IN HER WHEELCHAIR. THEY DECLINED ESCORT AND TOOK THE PT OUT ON THEIR OWN, NO S&S OF DISTRESS AT THE TIME OF DISCHARGE.
== END 2022-02-11 16:02 | disposition home or self-care (01) | DRG 871 ==
LOC: ER 08:03 → MEDS 11:14 → PCU 11:14 → MEDS 02-06 11:57
PROVIDERS: Family Medicine; Nurse Practitioner Acute Care; Student in an Organized Health Care Education/Training Program; ADMIT Internal Medicine
PROC: 3E03329 Introduction of Other Anti-infective into Peripheral Vein, Percutaneous Approach (ICD-10-PCS; principal; 2022-02-04)
PROC: 5A0935A Assistance with Respiratory Ventilation, Less than 24 Consecutive Hours, High Flow/Velocity Cannula (ICD-10-PCS; 2022-02-04)
PROC: 5A09357 Assistance with Respiratory Ventilation, Less than 24 Consecutive Hours, Continuous Positive Airway Pressure (ICD-10-PCS; 2022-02-04)
DX: B37.7 Candidal sepsis (principal); J12.1 Respiratory syncytial virus pneumonia; J96.21 Acute and chronic respiratory failure with hypoxia; J96.22 Acute and chronic respiratory failure with hypercapnia; J15.9 Unspecified bacterial pneumonia; J45.901 Unspecified asthma with (acute) exacerbation; F11.20 Opioid dependence, uncomplicated; N17.9 Acute kidney failure, unspecified; D84.9 Immunodeficiency, unspecified; R65.20 Severe sepsis without septic shock; R19.7 Diarrhea, unspecified; I10 Essential (primary) hypertension; F41.1 Generalized anxiety disorder; L40.50 Arthropathic psoriasis, unspecified; M19.90 Unspecified osteoarthritis, unspecified site; M79.7 Fibromyalgia; M54.30 Sciatica, unspecified side; M06.9 Rheumatoid arthritis, unspecified; M54.9 Dorsalgia, unspecified; G89.4 Chronic pain syndrome; K21.9 Gastro-esophageal reflux disease without esophagitis; I95.9 Hypotension, unspecified; Z20.822 Contact with and (suspected) exposure to COVID-19; F32.9 Major depressive disorder, single episode, unspecified; Z90.710 Acquired absence of both cervix and uterus; Z90.721 Acquired absence of ovaries, unilateral; Z98.890 Other specified postprocedural states; Z87.828 Personal history of other (healed) physical injury and trauma; Z85.41 Personal history of malignant neoplasm of cervix uteri; Z85.42 Personal history of malignant neoplasm of other parts of uterus; Z86.19 Personal history of other infectious and parasitic diseases; Z88.0 Allergy status to penicillin; Z79.899 Other long term (current) drug therapy; Z79.82 Long term (current) use of aspirin; Z79.52 Long term (current) use of systemic steroids
CPT/HCPCS: 0241U; 36415; 71045; 71250; 80053; 82248; 82803; 83605; 83735; 83880; 84145; 85007; 85025; 85027; 87040; 87070; 87081; 87205; 87493; 93005; 93010; 94640; 94644; 94660; 94664; 94760; 94761; 94762; 96365; 96366; 99285-25; A9270; J1450; J1644; J1956; J2060; J2405; J2920; J7030; J7512

== ENCOUNTER 2022-02-22 15:38 | Inpatient (IN) | payer OTHER ==
[~2022-02-22] VITALS: Ht 165.1 cm; Wt 80.2 kg
[~2022-02-22 15:38] MED LIST changes: +INFLECTRA100 MG IV; +MIRALAX17 GM PO; +NARCAN4 M1; +NYSTATIN100000 U10 MT; +PRED20 PO
[2022-02-22 16:56] LABS: Influenza B, PCR NEGATIVE (NEGATIVE); Resp Syncytial Virus, PCR NEGATIVE (NEGATIVE); SARS-Cov-2 (COVID-19) PCR, MMC NEGATIVE (NEGATIVE)
[2022-02-22 16:59] LABS: Influenza A, PCR POSITIVE (NEGATIVE)
[2022-02-22 17:17] LABS: Hematocrit 31.4 % (33.0-51.0); Hemoglobin 10.4 g/dL (11.5-16.0); Mean Corpuscular HGB 29.2 pg (26.0-34.0); Mean Corpuscular HGB Conc 33.1 g/dL (31.5-36.5); Mean Corpuscular Volume 88 fL (80-100); Mean Platelet Volume 9.9 fL (9.1-12.4); Platelet Count 337 K/mm3 (150-400); RDW Coefficient Variation 16.4 % (11.7-14.2); RDW Standard Deviation 51.7 fL (35.1-46.3); Red Blood Cell Count 3.56 M/mm3 (3.80-5.20); White Blood Cell Count 18.93 K/mm3 (4.00-11.30)
[2022-02-22 17:37] LABS: Albumin, Blood 2.2 g/dL (3.4-5.0); Albumin/Globulin Ratio 0.6 (0.8-1.8); BASOPHILS PERCENT MAN 0 % (0-2); Bilirubin, Total 0.4 mg/dL (0.1-1.0); Bun/Creatinine Ratio 7.2 (12.0-20.0); Calcium, Blood 8.1 mg/dL (8.5-10.1); Creatinine, Blood 0.7 mg/dL (0.40-1.00); EOSINOPHILS ABSOLUTE MAN 0.18 K/mm3 (0.00-0.68); EOSINOPHILS PERCENT MAN 1 % (0-6); Globulin, Blood 3.6 g/dL (2.2-4.0); LYMPHOCYTES ABSOLUTE MAN 0.75 K/mm3 (0.84-5.20); LYMPHOCYTES PERCENT MAN 4 % (21-46); MONOCYTES ABSOLUTE MAN 0.37 K/mm3 (0.16-1.47); MONOCYTES PERCENT MAN 2 % (4-13); SEG NEUTROPHILS PERCENT MAN 93 % (41-73); TOTAL CELLS COUNTED 100; Total Protein, Blood 5.8 g/dL (6.4-8.2)
[2022-02-23 00:04] LABS: Source, Urine Clean Catch
[2022-02-23 00:11] LABS: Bilirubin, Urine Neg (Neg); Blood, Urine Neg (Neg); Glucose Qualitative, Urine Neg (Neg); Ketones, Urine Neg (Neg); Leukocyte Esterase, Urine Neg (Neg); Nitrite, Urine Neg (Neg); Protein, Urine Neg (Neg); Specific Gravity, Urine 1.005 (1.003-1.022); Urobilinogen, Urine NORM (Normal)
[2022-02-23 00:14] LABS: Appearance, Urine Clear (Clear); Color, Urine Pale Yellow (P-Yellow)
[2022-02-23 06:17] LABS: BASOPHILS ABSOLUTE AUTO 0.04 K/mm3 (0.00-0.23); BASOPHILS PERCENT AUTO 0 % (0-2); EOSINOPHILS ABSOLUTE AUTO 0.22 K/mm3 (0.00-0.68); EOSINOPHILS PERCENT AUTO 1 % (0-6); Hematocrit 30.7 % (33.0-51.0); Hemoglobin 10.3 g/dL (11.5-16.0); Mean Corpuscular HGB 29.4 pg (26.0-34.0); Mean Corpuscular HGB Conc 33.6 g/dL (31.5-36.5); Mean Corpuscular Volume 88 fL (80-100); Platelet Count 303 K/mm3 (150-400); RDW Coefficient Variation 16.4 % (11.7-14.2); RDW Standard Deviation 51.4 fL (35.1-46.3); White Blood Cell Count 18.13 K/mm3 (4.00-11.30)
[2022-02-23 06:19] LABS: IMMATURE GRAN ABSOLUTE AUTO 0.19 K/mm3 (0.00-0.10); IMMATURE GRAN PERCENT AUTO 1 % (0-1); LYMPHOCYTES ABSOLUTE AUTO 1.35 K/mm3 (0.84-5.20); LYMPHOCYTES PERCENT AUTO 7 % (21-46); MONOCYTES ABSOLUTE AUTO 0.31 K/mm3 (0.16-1.47); MONOCYTES PERCENT AUTO 2 % (4-13); NEUTROPHILS ABSOLUTE AUTO 16.02 K/mm3 (1.96-9.15); NEUTROPHILS PERCENT AUTO 89 % (41-73)
[2022-02-23 07:04] LABS: Bun/Creatinine Ratio 12.8 (12.0-20.0); Calcium, Blood 7.8 mg/dL (8.5-10.1); Creatinine, Blood 0.55 mg/dL (0.40-1.00); Potassium, Blood 3.6 mmol/L (3.5-5.5)
--- NOTE | 2022-02-23 16:02 | NUR ---
SHIFT SUMMARY 1025 RECEIVED PT TO RM 312 VIA GURNEY FROM ER. PT ABLE TO TX SELF TO BED. ADMITTED FOR INFLUENZA AND PNM. PT IN DROPLET ISO. PER REPORT FROM REINA OBREGON, PT D/C'D RECENTLY FROM RSV/ASTHMA EXAC. PT INDEPENDENT TO BSC. IV ABX RECEIVED IN ER WITH IV VANCO INFUSING TO RM. PER REPORT, PT HAD BEEN PULLING AT LINES, TELE, AND IV'S. PT IS A&O, BUT VERY NEEDY. PT CALLING FREQUENTLY FOR SPRITE, THOUGH HAVING SEVERAL ON BS TABLE. NO OTHER C/O. CALL LT IN REACH. SITTING UPRIGHT IN BED WATCHING TV.
--- NOTE | 2022-02-24 06:34 | NUR ---
A/OX4; CALM AND COOPERATIVE TELE: SR, 80s. C/O PAIN "EVERYWHERE" AT 7-9/10; MEDS PER EMAR BROUGHT PAIN TO TOLERABLE LEVEL PER PATIENT. WAS ABLE TO SLEEP FOR PORTION OF SHIFT. IND TO BSC. DIARRHEA PER PATIENT; REQUESTING IMMODIUM. THIS RN ASKED PATIENT HOW MANY BMS TODAY; PATIENT UNSURE. RN GAVE PATIENT PEN AND PAPER TO MAKE A LOG OF OCCURANCES. 2L VIA NC; C/O NASAL PASSAGES DRY; HUMIDIFICATION ADDED; GOOD RELIEF PER PATIENT. FLU + PRECAUTIONS MAINTAINED. ABX PER ORDERS - NEW IV PLACED (ONLY HAD ACCESS IN HAND) FOR VANCO. INSTRUCTED TO STOP SCRATCHING AT SKIN WITH NAILS, WASHCLOTHS AND LOTION GIVEN; HELPFUL PER PATIENT.
[2022-02-24 09:16] LABS: BASOPHILS ABSOLUTE AUTO 0.05 K/mm3 (0.00-0.23); BASOPHILS PERCENT AUTO 0 % (0-2); EOSINOPHILS ABSOLUTE AUTO 0.76 K/mm3 (0.00-0.68); EOSINOPHILS PERCENT AUTO 6 % (0-6); Hematocrit 28.8 % (33.0-51.0); Hemoglobin 9.7 g/dL (11.5-16.0); IMMATURE GRAN ABSOLUTE AUTO 0.25 K/mm3 (0.00-0.10); IMMATURE GRAN PERCENT AUTO 2 % (0-1); LYMPHOCYTES ABSOLUTE AUTO 1.57 K/mm3 (0.84-5.20); LYMPHOCYTES PERCENT AUTO 13 % (21-46); MONOCYTES ABSOLUTE AUTO 0.42 K/mm3 (0.16-1.47); MONOCYTES PERCENT AUTO 3 % (4-13); Mean Corpuscular HGB 29.5 pg (26.0-34.0); Mean Corpuscular HGB Conc 33.7 g/dL (31.5-36.5); Mean Corpuscular Volume 88 fL (80-100); Mean Platelet Volume 9.9 fL (9.1-12.4); NEUTROPHILS ABSOLUTE AUTO 9.36 K/mm3 (1.96-9.15); NEUTROPHILS PERCENT AUTO 75 % (41-73); Platelet Count 252 K/mm3 (150-400); RDW Coefficient Variation 16.3 % (11.7-14.2); RDW Standard Deviation 51.6 fL (35.1-46.3); Red Blood Cell Count 3.29 M/mm3 (3.80-5.20); White Blood Cell Count 12.41 K/mm3 (4.00-11.30)
[2022-02-24 09:38] LABS: Anion Gap 5 mmol/L (6-16); Blood Urea Nitrogen 4 mg/dL (8-24); Bun/Creatinine Ratio 7.5 (12.0-20.0); CO2, Blood 29 mmol/L (21-32); Calcium, Blood 7.8 mg/dL (8.5-10.1); Chloride, Blood 108 mmol/L (98-108); Creatinine, Blood 0.54 mg/dL (0.40-1.00); Glomerular Filtration Rate 105 (60-); Glucose, Blood 110 mg/dL (70-99); Potassium, Blood 3.3 mmol/L (3.5-5.5); Sodium, Blood 142 mmol/L (136-145)
[2022-02-24] MEDS ORDERED: NARCAN4 M1 (15:59)
[2022-02-24] MEDS ORDERED: VISBIOME 112.51 EACH PO (16:00)
[2022-02-24] MEDS ORDERED: OSEL75CA PO (16:00)
[2022-02-24] MEDS ORDERED: LEVO750 PO (16:00)
--- NOTE | 2022-02-24 19:50 | NUR ---
SHIFT SUMMARY PT SLEEPING, RESTING QUIETLY AT START OF SHIFT. WOKE EASILY FOR CARE AT BREAKFAST. PT UP INDEPENDENTLY TO EOB TO EAT AND UP TO BSC NEEDED. PT IN DROPLET ISO FOR THE FLU; MEDS AND IV ABX GIVEN PER EMAR. PT CLEARED FOR D/C TO HOME THIS EVENING AFTER IV ABX GIVEN, ORDERS PLACED. PT UP TO SHOWER INDEPENDENTLY PRIOR TO D/C TO HOME. PT'S DAUGHTER HERE AFTER WORK TO PICK HER UP, BRINGING HER CLEAN CLOTHES. D/C INSTRUCTIONS REVIEWED WITH PT. PHARMACY INSTRUCTIONS ALSO REVIEWED WITH PT R/T D/C MEDS. DAUGHTER PACKED ALL PT BELONGINGS AND ASSISTED PT OUT IN HOME W/C.
== END 2022-02-24 19:02 | disposition home or self-care (01) | DRG 871 ==
LOC: ER 15:38 → ERHOLD 15:39 → MEDS 02-23 10:22
PROVIDERS: Physician Assistant; Student in an Organized Health Care Education/Training Program; ADMIT Family Medicine
DX: A41.89 Other specified sepsis (principal); J10.00 Influenza due to other identified influenza virus with unspecified type of pneumonia; E87.1 Hypo-osmolality and hyponatremia; J45.901 Unspecified asthma with (acute) exacerbation; D84.9 Immunodeficiency, unspecified; R65.20 Severe sepsis without septic shock; T36.8X5A Adverse effect of other systemic antibiotics, initial encounter; M19.90 Unspecified osteoarthritis, unspecified site; M79.7 Fibromyalgia; M54.9 Dorsalgia, unspecified; D63.8 Anemia in other chronic diseases classified elsewhere; L27.0 Generalized skin eruption due to drugs and medicaments taken internally; G89.29 Other chronic pain; K21.9 Gastro-esophageal reflux disease without esophagitis; F32.9 Major depressive disorder, single episode, unspecified; I10 Essential (primary) hypertension; Z20.822 Contact with and (suspected) exposure to COVID-19; L40.50 Arthropathic psoriasis, unspecified; Z98.890 Other specified postprocedural states; Z90.710 Acquired absence of both cervix and uterus; Z90.721 Acquired absence of ovaries, unilateral; Z88.0 Allergy status to penicillin; Z79.899 Other long term (current) drug therapy; Z79.82 Long term (current) use of aspirin; Z85.41 Personal history of malignant neoplasm of cervix uteri; Z79.891 Long term (current) use of opiate analgesic; Z79.52 Long term (current) use of systemic steroids; Z79.51 Long term (current) use of inhaled steroids
CPT/HCPCS: 0241U; 36415; 71046; 80048; 80053; 80202; 81003; 82947; 83605; 84145; 85025; 93005; 93010; 94640; 94664; 96365; 96366; 96367; 96372-59; 96375; 99285-25; A9270; G0378; J1650; J1885; J1956; J3370; J7030; J7050; J7120

== ENCOUNTER 2022-04-14 10:08 | Day surgery (SDC) | payer OTHER ==
[~2022-04-14] VITALS: Ht 165.1 cm; Wt 86.6 kg
[~2022-04-14 10:08] MED LIST changes: +LEVO750 PO; +OSEL75CA PO; +VISBIOME 112.51 EACH PO
--- NOTE | 2022-04-14 10:49 | NUR ---
04/14/22 1049 [place] PATIENT DETERMINED TO BE ASA APPROPRIATE FOR PROPOFOL SEDATION PRIOR TO START OF PROCEDURE BY DR. EDWARD. HISTORY, CHART, MEDICATIONS AND ALLERGIES REVIEWED BEFORE START OF PROCEDURE. PATIENT CONFIRMS NPO STATUS AND AGREES WITH SCHEDULED PROCEDURE. 3-LEAD EKG REVIEWED WITH PHYSICIAN PRIOR TO START OF PROCEDURE. MONITOR INTACT WITH CONTINUOUS PULSE OXIMETRY,CAPNOGRAPHY, 3-LEAD EKG, INTERMITTENT BP. SUPPLEMENTAL O2 TO BE TITRATED THROUGHOUT PROCEDURE TO MAINTAIN O2 SATURATION ABOVE 90%. PATIENT DETERMINED TO BE ASA APPROPRIATE FOR PROPOFOL SEDATION PRIOR TO START OF PROCEDURE BY DR. EDWARD
--- NOTE | 2022-04-14 11:29 | NUR ---
Discharge instructions reviewed with patient. Patient verbalizes understanding. Copy given to patient to take home. Patient States Post-Procedure ride home has been arranged. Discharged via wheelchair to private car for ride home.
== END 2022-04-14 23:05 | disposition home or self-care (01) ==
LOC: ORSCMMR 10:08 → ORD 10:30 → ORSCMMR 10:30
PROVIDERS: Internal Medicine Gastroenterology
PROC: 0DB58ZX Excision of Esophagus, Via Natural or Artificial Opening Endoscopic, Diagnostic (ICD-10-PCS; principal; 2022-04-14 10:30)
PROC: 0DB48ZX Excision of Esophagogastric Junction, Via Natural or Artificial Opening Endoscopic, Diagnostic (ICD-10-PCS; principal; 2022-04-14 10:30)
PROC: 0D758ZZ Dilation of Esophagus, Via Natural or Artificial Opening Endoscopic (ICD-10-PCS; principal; 2022-04-14 10:30)
DX: R13.10 Dysphagia, unspecified (principal); K44.9 Diaphragmatic hernia without obstruction or gangrene; K21.9 Gastro-esophageal reflux disease without esophagitis; E78.00 Pure hypercholesterolemia, unspecified; F32.A Depression, unspecified; L40.50 Arthropathic psoriasis, unspecified; Z79.82 Long term (current) use of aspirin; Z79.899 Other long term (current) drug therapy
CPT/HCPCS: A9270; C1726; J2704; J7120

== ENCOUNTER 2022-05-11 01:07 | Day surgery (SDC) | payer OTHER | END 2022-05-11 11:48 | disposition home or self-care (01) | LOC: ATC 01:07 | DX: L40.50 Arthropathic psoriasis, unspecified (principal); Z88.0 Allergy status to penicillin; F41.9 Anxiety disorder, unspecified; K21.9 Gastro-esophageal reflux disease without esophagitis; E78.1 Pure hyperglyceridemia; F32.9 Major depressive disorder, single episode, unspecified | CPT/HCPCS: 96413; 96415; J7050; Q5103 ==

== ENCOUNTER 2022-07-06 01:05 | Day surgery (SDC) | payer OTHER ==
[2022-07-06 13:40] VITALS: BP 145/80
[2022-07-06 14:18] LABS: BASOPHILS ABSOLUTE AUTO 0.11 K/mm3 (0.00-0.23); BASOPHILS PERCENT AUTO 1 % (0-2); EOSINOPHILS PERCENT AUTO 2 % (0-6); Hematocrit 37.8 % (33.0-51.0); Hemoglobin 12.5 g/dL (11.5-16.0); IMMATURE GRAN ABSOLUTE AUTO 0.13 K/mm3 (0.00-0.10); IMMATURE GRAN PERCENT AUTO 1 % (0-1); LYMPHOCYTES ABSOLUTE AUTO 3.32 K/mm3 (0.84-5.20); LYMPHOCYTES PERCENT AUTO 23 % (21-46); MONOCYTES ABSOLUTE AUTO 1.01 K/mm3 (0.16-1.47); MONOCYTES PERCENT AUTO 7 % (4-13); Mean Corpuscular HGB Conc 33.1 g/dL (31.5-36.5); Mean Corpuscular Volume 91 fL (80-100); Mean Platelet Volume 10.7 fL (9.1-12.4); NEUTROPHILS ABSOLUTE AUTO 9.44 K/mm3 (1.96-9.15); NEUTROPHILS PERCENT AUTO 66 % (41-73); Platelet Count 390 K/mm3 (150-400); RDW Coefficient Variation 14.7 % (11.7-14.2); RDW Standard Deviation 47.7 fL (35.1-46.3); Red Blood Cell Count 4.17 M/mm3 (3.80-5.20); White Blood Cell Count 14.31 K/mm3 (4.00-11.30)
[2022-07-06] MEDS ORDERED: Bactrim Ds Tab1 EACH PO (16:06)
[2022-07-06] MEDS ORDERED: CLIN150 PO (16:06)
--- NOTE | 2022-07-06 16:58 | NUR ---
PT CAME INTO CLINIC, IV STARTED ON LEFT HAND, LABS DRAWN, WENT TO ORDER AND PT INFORMS THIS RN THAT SHE GOT BIT BY FERAL CAT 2 DAYS AGO. SHE HOLDS UP R INDEX FINGER WHICH IS RED AND INFLAMMED, THIS RN CANCELLED INFLECTRA AND TOOK PT TO ER
== END 2022-07-06 13:50 | disposition home or self-care (01) ==
LOC: ATC 01:05
PROVIDERS: Internal Medicine Rheumatology
DX: L40.50 Arthropathic psoriasis, unspecified (principal)
CPT/HCPCS: 36415; 85025; 85651; 99211; J7050; Q5103

== ENCOUNTER 2022-07-06 14:07 | Emergency (ER) | payer OTHER ==
[~2022-07-06] VITALS: Ht 165.1 cm; Wt 90.3 kg
[2022-07-06 14:30] VITALS: BP 158/80
[2022-07-06] MEDS ORDERED: Bactrim Ds Tab1 EACH PO (16:06)
[2022-07-06] MEDS ORDERED: CLIN150 PO (16:06)
== END 2022-07-06 16:30 | disposition home or self-care (01) ==
LOC: ER 14:07
DX: S61.250A Open bite of right index finger without damage to nail, initial encounter (principal); W55.01XA Bitten by cat, initial encounter; Z88.0 Allergy status to penicillin; Z79.899 Other long term (current) drug therapy; Z79.82 Long term (current) use of aspirin; J45.909 Unspecified asthma, uncomplicated; I10 Essential (primary) hypertension; K21.9 Gastro-esophageal reflux disease without esophagitis
CPT/HCPCS: 73140; 84450; A9270

== ENCOUNTER 2022-07-24 03:36 | Day surgery (SDC) | payer OTHER ==
[~2022-07-24 03:36] MED LIST changes: +CLIN150 PO
[2022-07-24 13:51] VITALS: BP 136/68
[2022-07-24 14:40] LABS: BASOPHILS ABSOLUTE AUTO 0.08 K/mm3 (0.00-0.23); BASOPHILS PERCENT AUTO 1 % (0-2); EOSINOPHILS ABSOLUTE AUTO 0.64 K/mm3 (0.00-0.68); EOSINOPHILS PERCENT AUTO 9 % (0-6); Hematocrit 36.9 % (33.0-51.0); Hemoglobin 11.8 g/dL (11.5-16.0); IMMATURE GRAN ABSOLUTE AUTO 0.06 K/mm3 (0.00-0.10); IMMATURE GRAN PERCENT AUTO 1 % (0-1); LYMPHOCYTES ABSOLUTE AUTO 2.84 K/mm3 (0.84-5.20); LYMPHOCYTES PERCENT AUTO 41 % (21-46); MONOCYTES ABSOLUTE AUTO 0.85 K/mm3 (0.16-1.47); MONOCYTES PERCENT AUTO 12 % (4-13); Mean Corpuscular HGB 30.1 pg (26.0-34.0); Mean Corpuscular Volume 94 fL (80-100); Mean Platelet Volume 9.5 fL (9.1-12.4); NEUTROPHILS ABSOLUTE AUTO 2.48 K/mm3 (1.96-9.15); NEUTROPHILS PERCENT AUTO 36 % (41-73); Platelet Count 319 K/mm3 (150-400); RDW Coefficient Variation 15.9 % (11.7-14.2); Red Blood Cell Count 3.92 M/mm3 (3.80-5.20); White Blood Cell Count 6.95 K/mm3 (4.00-11.30)
== END 2022-07-24 16:32 | disposition home or self-care (01) ==
LOC: ATC 03:36
PROVIDERS: Internal Medicine Rheumatology
DX: L40.50 Arthropathic psoriasis, unspecified (principal)
CPT/HCPCS: 84450; 85025; 85651; J7050; Q5103

== ENCOUNTER 2022-09-14 00:59 | Day surgery (SDC) | payer OTHER ==
[2022-09-14 13:38] VITALS: BP 116/6
[2022-09-14 14:18] LABS: BASOPHILS ABSOLUTE AUTO 0.06 K/mm3 (0.00-0.23); BASOPHILS PERCENT AUTO 1 % (0-2); EOSINOPHILS ABSOLUTE AUTO 0.29 K/mm3 (0.00-0.68); EOSINOPHILS PERCENT AUTO 3 % (0-6); Hematocrit 33.8 % (33.0-51.0); IMMATURE GRAN ABSOLUTE AUTO 0.05 K/mm3 (0.00-0.10); IMMATURE GRAN PERCENT AUTO 1 % (0-1); LYMPHOCYTES ABSOLUTE AUTO 3.09 K/mm3 (0.84-5.20); LYMPHOCYTES PERCENT AUTO 29 % (21-46); MONOCYTES ABSOLUTE AUTO 0.21 K/mm3 (0.16-1.47); MONOCYTES PERCENT AUTO 2 % (4-13); Mean Corpuscular HGB 30.6 pg (26.0-34.0); Mean Corpuscular HGB Conc 32.5 g/dL (31.5-36.5); Mean Corpuscular Volume 94 fL (80-100); NEUTROPHILS ABSOLUTE AUTO 7.07 K/mm3 (1.96-9.15); NEUTROPHILS PERCENT AUTO 66 % (41-73); Platelet Count 300 K/mm3 (150-400); RDW Coefficient Variation 15.1 % (11.7-14.2); RDW Standard Deviation 51.5 fL (35.1-46.3); Red Blood Cell Count 3.59 M/mm3 (3.80-5.20); White Blood Cell Count 10.77 K/mm3 (4.00-11.30)
== END 2022-09-14 16:38 | disposition home or self-care (01) ==
LOC: ATC 00:59
PROVIDERS: Internal Medicine Rheumatology
DX: L40.50 Arthropathic psoriasis, unspecified (principal)
CPT/HCPCS: 84450; 85025; 85651; 96413; 96415; J7050; Q5103

== ENCOUNTER 2022-11-03 01:02 | Day surgery (SDC) | payer OTHER ==
[2022-11-03 08:10] VITALS: BP 122/72
--- NOTE | 2022-11-03 09:20 | NUR ---
PT DECLINED HER PRE MEDS THIS MORNING.
[2022-11-03 09:25] LABS: BASOPHILS ABSOLUTE AUTO 0.09 K/mm3 (0.00-0.23); BASOPHILS PERCENT AUTO 2 % (0-2); EOSINOPHILS PERCENT AUTO 7 % (0-6); Hematocrit 36.7 % (33.0-51.0); Hemoglobin 11.8 g/dL (11.5-16.0); IMMATURE GRAN ABSOLUTE AUTO 0.02 K/mm3 (0.00-0.10); IMMATURE GRAN PERCENT AUTO 0 % (0-1); LYMPHOCYTES ABSOLUTE AUTO 1.86 K/mm3 (0.84-5.20); LYMPHOCYTES PERCENT AUTO 33 % (21-46); MONOCYTES ABSOLUTE AUTO 0.22 K/mm3 (0.16-1.47); MONOCYTES PERCENT AUTO 4 % (4-13); Mean Corpuscular HGB 30.9 pg (26.0-34.0); Mean Corpuscular HGB Conc 32.2 g/dL (31.5-36.5); Mean Corpuscular Volume 96 fL (80-100); Mean Platelet Volume 9.8 fL (9.1-12.4); NEUTROPHILS ABSOLUTE AUTO 3.11 K/mm3 (1.96-9.15); NEUTROPHILS PERCENT AUTO 55 % (41-73); Platelet Count 693 K/mm3 (150-400); RDW Coefficient Variation 15.6 % (11.7-14.2); RDW Standard Deviation 52.6 fL (35.1-46.3); Red Blood Cell Count 3.82 M/mm3 (3.80-5.20)
== END 2022-11-03 11:21 | disposition home or self-care (01) ==
LOC: ATC 01:02
PROVIDERS: Internal Medicine Rheumatology
DX: L40.50 Arthropathic psoriasis, unspecified (principal); F90.9 Attention-deficit hyperactivity disorder, unspecified type; K21.9 Gastro-esophageal reflux disease without esophagitis; E78.1 Pure hyperglyceridemia; G89.29 Other chronic pain; J45.909 Unspecified asthma, uncomplicated; M25.561 Pain in right knee; Z88.0 Allergy status to penicillin
CPT/HCPCS: 84450; 85025; 85651; J7050; Q5103

== ENCOUNTER → 2023-02-18 | Outpatient (CLI) | payer OTHER ==
[2023-02-18 19:02] LABS: BASOPHILS ABSOLUTE AUTO 0.09 K/mm3 (0.00-0.23); BASOPHILS PERCENT AUTO 1 % (0-2); EOSINOPHILS ABSOLUTE AUTO 0.26 K/mm3 (0.00-0.68); EOSINOPHILS PERCENT AUTO 3 % (0-6); Hematocrit 39.6 % (33.0-51.0); Hemoglobin 12.2 g/dL (11.5-16.0); IMMATURE GRAN ABSOLUTE AUTO 0.03 K/mm3 (0.00-0.10); IMMATURE GRAN PERCENT AUTO 0 % (0-1); LYMPHOCYTES ABSOLUTE AUTO 2.94 K/mm3 (0.84-5.20); LYMPHOCYTES PERCENT AUTO 38 % (21-46); MONOCYTES ABSOLUTE AUTO 0.95 K/mm3 (0.16-1.47); MONOCYTES PERCENT AUTO 12 % (4-13); Mean Corpuscular HGB 29.6 pg (26.0-34.0); Mean Corpuscular HGB Conc 30.8 g/dL (31.5-36.5); Mean Corpuscular Volume 96 fL (80-100); NEUTROPHILS ABSOLUTE AUTO 3.53 K/mm3 (1.96-9.15); NEUTROPHILS PERCENT AUTO 45 % (41-73); Platelet Count 483 K/mm3 (150-400); RDW Coefficient Variation 14.9 % (11.7-14.2); RDW Standard Deviation 50.9 fL (35.1-46.3); Red Blood Cell Count 4.12 M/mm3 (3.80-5.20)
[2023-02-18 20:08] LABS: Albumin, Blood 3.8 g/dL (3.4-5.0); Albumin/Globulin Ratio 1.1 (0.8-1.8); Bilirubin, Total 0.4 mg/dL (0.1-1.0); Bun/Creatinine Ratio 9.9 (12.0-20.0); Calcium, Blood 9.1 mg/dL (8.5-10.1); Creatinine, Blood 0.81 mg/dL (0.40-1.00); Globulin, Blood 3.5 g/dL (2.2-4.0); Potassium, Blood 3.9 mmol/L (3.5-5.5); Total Protein, Blood 7.3 g/dL (6.4-8.2)
== END ==
LOC: LAB 13:55 → LAB SHORT 14:56
PROVIDERS: Internal Medicine Rheumatology
DX: L40.50 Arthropathic psoriasis, unspecified (principal); Z01.419 Encounter for gynecological examination (general) (routine) without abnormal findings
CPT/HCPCS: 80053; 85025; 85651

== ENCOUNTER → 2023-02-18 | Outpatient (CLI) | payer OTHER ==
[2023-02-22 10:08] LABS: ALPHA 1 GLOBULIN 0.27 g/dL (0.19-0.46); ALPHA 2 GLOBULIN 0.61 g/dL (0.48-1.05); BETA GLOBULIN 0.86 g/dL (0.48-1.10); GAMMA 0.75 g/dL (0.62-1.51); TOTAL PROTEIN,SERUM 6.7 g/dL (6.3-8.2)
== END ==
LOC: LAB SHORT 14:31 → LAB 14:31
PROVIDERS: Family Medicine
DX: Z01.419 Encounter for gynecological examination (general) (routine) without abnormal findings (principal); R77.1 Abnormality of globulin
CPT/HCPCS: 84155; 84165

== ENCOUNTER 2023-02-25 04:24 | Day surgery (SDC) | payer OTHER ==
[2023-02-25] MEDS ORDERED: DiphenhydrAMINE HCL 25 MG Cap PO SCH (07:00)
[2023-02-25] MEDS ORDERED: Acetaminophen 500 MG Tab PO SCH (07:00)
[2023-02-25 08:57] VITALS: BP 153/65
--- NOTE | 2023-02-25 09:00 | NUR ---
PT DECLINED HER PRE MEDS TODAY.
[2023-02-25] MEDS ORDERED: Infliximab-DYYB 700 MG in NS 250 ML IV SCH (09:10)
[2023-02-25 09:32] LABS: BASOPHILS ABSOLUTE AUTO 0.12 K/mm3 (0.00-0.23); BASOPHILS PERCENT AUTO 1 % (0-2); EOSINOPHILS ABSOLUTE AUTO 0.35 K/mm3 (0.00-0.68); EOSINOPHILS PERCENT AUTO 4 % (0-6); Hematocrit 38.1 % (33.0-51.0); Hemoglobin 12.2 g/dL (11.5-16.0); IMMATURE GRAN ABSOLUTE AUTO 0.11 K/mm3 (0.00-0.10); IMMATURE GRAN PERCENT AUTO 1 % (0-1); LYMPHOCYTES ABSOLUTE AUTO 2.52 K/mm3 (0.84-5.20); LYMPHOCYTES PERCENT AUTO 27 % (21-46); MONOCYTES ABSOLUTE AUTO 0.77 K/mm3 (0.16-1.47); MONOCYTES PERCENT AUTO 8 % (4-13); Mean Corpuscular HGB 30.3 pg (26.0-34.0); Mean Corpuscular Volume 95 fL (80-100); Mean Platelet Volume 9.8 fL (9.1-12.4); NEUTROPHILS ABSOLUTE AUTO 5.63 K/mm3 (1.96-9.15); NEUTROPHILS PERCENT AUTO 59 % (41-73); Platelet Count 478 K/mm3 (150-400); RDW Standard Deviation 50.5 fL (35.1-46.3); Red Blood Cell Count 4.03 M/mm3 (3.80-5.20)
== END 2023-02-25 12:19 | disposition home or self-care (01) ==
LOC: ATC 04:24
PROVIDERS: Internal Medicine Rheumatology
DX: L40.50 Arthropathic psoriasis, unspecified (principal)
CPT/HCPCS: 84450; 85025; 85651; 96413; 96415; J7050; Q5103

== ENCOUNTER 2023-07-13 09:51 | Emergency (ER) | payer OTHER ==
[~2023-07-13] VITALS: Ht 165.1 cm; Wt 88.5 kg
[~2023-07-13 09:51] MED LIST changes: +FAMO20 PO; +Norco 5-325 Ta1 EACH; +SYMBICORT 160-4.6 GM
[2023-07-13 10:16] VITALS: BP 117/68
[2023-07-13] MEDS ORDERED: NYSTATIN100000 UNI MT (12:02)
[2023-07-13] MEDS ORDERED: MUPIROCIN1 G1 TOP (12:02)
[2023-07-13] MEDS ORDERED: CEPH500 PO (12:02)
[2023-07-15] MEDS ORDERED: METHOTREXATE2.510 PO (13:41)
[2023-07-15] MEDS ORDERED: Keflex250 MG PO (13:41)
[2023-07-15] MEDS ORDERED: HYDROCODONE-AC1 EA19 PO (13:41)
[2023-07-15] MEDS ORDERED: MUPIROCIN2210 TOP (13:41)
[2023-07-15] MEDS ORDERED: GABAPENTIN600 MG PO (13:42)
[2023-07-15] MEDS ORDERED: SIME80CH PO (13:42)
[2023-07-15] MEDS ORDERED: GEMFIBROZIL600 MG PO (13:42)
[2023-07-15] MEDS ORDERED: BUDESONIDE-FO10.2 G2 INH (13:42)
[2023-07-15] MEDS ORDERED: KETOROLAC TROMET3 ML OP (13:42)
[2023-07-15] MEDS ORDERED: KLOR-CON 1010 ME9 PO (13:43)
[2023-07-15] MEDS ORDERED: FAMO20 PO (13:43)
[2023-07-15] MEDS ORDERED: BACL10 PO (17:36)
[2023-07-15] MEDS ORDERED: OMEP20ER PO (17:38)
== END 2023-07-13 12:16 | disposition home or self-care (01) ==
LOC: ER 09:51
DX: B37.0 Candidal stomatitis (principal); L03.114 Cellulitis of left upper limb; L03.113 Cellulitis of right upper limb; K12.0 Recurrent oral aphthae; K21.9 Gastro-esophageal reflux disease without esophagitis; J45.909 Unspecified asthma, uncomplicated; Z92.25 Personal history of immunosuppression therapy; Z87.39 Personal history of other diseases of the musculoskeletal system and connective tissue; I10 Essential (primary) hypertension; Z88.0 Allergy status to penicillin; Z79.51 Long term (current) use of inhaled steroids; Z79.82 Long term (current) use of aspirin; Z79.899 Other long term (current) drug therapy
CPT/HCPCS: 99282

== ENCOUNTER 2023-09-08 03:25 | Day surgery (SDC) | payer OTHER ==
--- NOTE | 2023-09-02 07:35 | NUR ---
PT CANCELED HER APPOINTMENT FOR TODAY IN THE [facility].
[~2023-09-08 03:25] MED LIST changes: +Acetaminophen325 M1 PO; +BUDESONIDE-FO10.2 G2 INH; +CEPH500 PO; +GABAPENTIN600 MG PO; +GEMFIBROZIL600 MG PO; +HYDROCODONE-AC1 EA19 PO; +KETOROLAC TROMET3 ML OP; +KLOR-CON 1010 ME9 PO; +Keflex250 MG PO; +METHOTREXATE2.510 PO; +MORP20L PO; +MUPIROCIN1 G1 TOP; +MUPIROCIN2210 TOP; +NYST237S PO; +NYSTATIN100000 UNI MT; +PHOS-NaK PO; +POTA20LUD PO; +SIME80CH PO; +TRIDERM28.4 GM TOP
[2023-09-08 08:00] VITALS: BP 133/65
[2023-09-08] MEDS ORDERED: Infliximab-DYYB 700 MG in NS 250 ML IV SCH (08:15)
[2023-09-08 08:50] LABS: Hematocrit 37.9 % (33.0-51.0); Hemoglobin 11.9 g/dL (11.5-16.0); Mean Corpuscular HGB 30.2 pg (26.0-34.0); Mean Corpuscular HGB Conc 31.4 g/dL (31.5-36.5); Mean Corpuscular Volume 96 fL (80-100); Mean Platelet Volume 9.5 fL (9.1-12.4); Platelet Count 273 K/mm3 (150-400); RDW Standard Deviation 53.5 fL (35.1-46.3); Red Blood Cell Count 3.94 M/mm3 (3.80-5.20); White Blood Cell Count 8.54 K/mm3 (4.00-11.30)
[2023-09-08 09:14] LABS: BASOPHILS PERCENT MAN 0 % (0-2); EOSINOPHILS ABSOLUTE MAN 0.51 K/mm3 (0.00-0.68); EOSINOPHILS PERCENT MAN 6 % (0-6); LYMPHOCYTES % ATYPICAL MANUAL 2 % (0-0); LYMPHOCYTES ABSOLUTE MAN 4.52 K/mm3 (0.84-5.20); LYMPHOCYTES PERCENT MAN 51 % (21-46); MONOCYTES ABSOLUTE MAN 0.93 K/mm3 (0.16-1.47); MONOCYTES PERCENT MAN 11 % (4-13); NEUTROPHILS ABSOLUTE MAN 2.56 K/mm3 (1.96-9.15); SEG NEUTROPHILS PERCENT MAN 30 % (41-73); TOTAL CELLS COUNTED 100
== END 2023-09-08 10:47 | disposition home or self-care (01) ==
LOC: ATC 03:25
PROVIDERS: Internal Medicine Rheumatology
DX: L40.50 Arthropathic psoriasis, unspecified (principal); Z88.0 Allergy status to penicillin; Z88.1 Allergy status to other antibiotic agents; Z79.82 Long term (current) use of aspirin; Z79.899 Other long term (current) drug therapy; J45.40 Moderate persistent asthma, uncomplicated; K21.9 Gastro-esophageal reflux disease without esophagitis
CPT/HCPCS: 84450; 85025; 85651; 96413; 96415; J7050; Q5103

== ENCOUNTER → 2023-11-11 | Outpatient (CLI) | payer OTHER ==
[2023-11-11 17:53] LABS: BASOPHILS ABSOLUTE AUTO 0.05 K/mm3 (0.00-0.23); BASOPHILS PERCENT AUTO 1 % (0-2); EOSINOPHILS ABSOLUTE AUTO 0.15 K/mm3 (0.00-0.68); EOSINOPHILS PERCENT AUTO 2 % (0-6); Hematocrit 41.2 % (33.0-51.0); Hemoglobin 13.3 g/dL (11.5-16.0); IMMATURE GRAN ABSOLUTE AUTO 0.03 K/mm3 (0.00-0.10); IMMATURE GRAN PERCENT AUTO 0 % (0-1); LYMPHOCYTES PERCENT AUTO 54 % (21-46); MONOCYTES ABSOLUTE AUTO 0.85 K/mm3 (0.16-1.47); MONOCYTES PERCENT AUTO 11 % (4-13); Mean Corpuscular HGB 29.6 pg (26.0-34.0); Mean Corpuscular HGB Conc 32.3 g/dL (31.5-36.5); Mean Corpuscular Volume 92 fL (80-100); Mean Platelet Volume 9.4 fL (9.1-12.4); NEUTROPHILS ABSOLUTE AUTO 2.45 K/mm3 (1.96-9.15); NEUTROPHILS PERCENT AUTO 32 % (41-73); Platelet Count 322 K/mm3 (150-400); RDW Coefficient Variation 13.4 % (11.7-14.2); RDW Standard Deviation 45.2 fL (35.1-46.3); White Blood Cell Count 7.63 K/mm3 (4.00-11.30)
[2023-11-11 18:21] LABS: Alanine Aminotransfer (ALT/SGP 28 U/L (12-78); Albumin, Blood 3.7 g/dL (3.4-5.0); Albumin/Globulin Ratio 0.9 (0.8-1.8); Alk Phos 180 U/L (50-136); Anion Gap 7 mmol/L (3-11); Aspartate Aminotrans (AST/SGOT 25 U/L (12-37); Bilirubin, Total 0.3 mg/dL (0.1-1.0); Blood Urea Nitrogen 8 mg/dL (8-24); Bun/Creatinine Ratio 10.3 (12.0-20.0); CHOL/HDL RATIO 5.8; CO2, Blood 28 mmol/L (21-32); Calcium, Blood 9.2 mg/dL (8.5-10.1); Chloride, Blood 107 mmol/L (98-108); Cholesterol 220 mg/dL (50-200); Creatinine, Blood 0.77 mg/dL (0.40-1.00); Globulin, Blood 4.1 g/dL (2.2-4.0); Glomerular Filtration Rate 87 (60-); Glucose, Blood 119 mg/dL (70-99); HDL Cholesterol 38 mg/dL (>39); LDL/HDL RATIO 3.9; Low Density Lipoprotein Chol 148 mg/dL (0-110); Potassium, Blood 4.4 mmol/L (3.5-5.5); Sodium, Blood 138 mmol/L (136-145); Total Protein, Blood 7.8 g/dL (6.4-8.2); Triglycerides 170 mg/dL (30-160); Very Low Density Lipoprot Chol 34 mg/dL (6-32)
== END ==
LOC: LAB SHORT 16:09 → LAB 16:09
PROVIDERS: Family Medicine
DX: Z51.81 Encounter for therapeutic drug level monitoring (principal); Z79.899 Other long term (current) drug therapy
CPT/HCPCS: 80053; 80061; 82306; 83036; 84443; 85025

== ENCOUNTER 2023-12-17 03:31 | Day surgery (SDC) | payer OTHER ==
[2023-12-17 09:17] VITALS: BP 168/68
[2023-12-17] MEDS ORDERED: Infliximab-DYYB 700 MG in NS 250 ML IV SCH (09:35)
[2023-12-17 10:33] LABS: BASOPHILS ABSOLUTE AUTO 0.06 K/mm3 (0.00-0.23); BASOPHILS PERCENT AUTO 1 % (0-2); EOSINOPHILS ABSOLUTE AUTO 0.21 K/mm3 (0.00-0.68); EOSINOPHILS PERCENT AUTO 2 % (0-6); Hematocrit 37.1 % (33.0-51.0); Hemoglobin 12.1 g/dL (11.5-16.0); IMMATURE GRAN ABSOLUTE AUTO 0.05 K/mm3 (0.00-0.10); IMMATURE GRAN PERCENT AUTO 1 % (0-1); LYMPHOCYTES PERCENT AUTO 43 % (21-46); MONOCYTES ABSOLUTE AUTO 1.19 K/mm3 (0.16-1.47); MONOCYTES PERCENT AUTO 13 % (4-13); Mean Corpuscular HGB 30.1 pg (26.0-34.0); Mean Corpuscular HGB Conc 32.6 g/dL (31.5-36.5); Mean Corpuscular Volume 92 fL (80-100); Mean Platelet Volume 9.1 fL (9.1-12.4); NEUTROPHILS ABSOLUTE AUTO 3.83 K/mm3 (1.96-9.15); NEUTROPHILS PERCENT AUTO 41 % (41-73); Platelet Count 341 K/mm3 (150-400); RDW Coefficient Variation 13.8 % (11.7-14.2); RDW Standard Deviation 46.5 fL (35.1-46.3); Red Blood Cell Count 4.02 M/mm3 (3.80-5.20); White Blood Cell Count 9.34 K/mm3 (4.00-11.30)
== END 2023-12-17 12:06 | disposition home or self-care (01) ==
LOC: ATC 03:31
PROVIDERS: Internal Medicine Rheumatology
DX: L40.50 Arthropathic psoriasis, unspecified (principal); F90.9 Attention-deficit hyperactivity disorder, unspecified type; Z88.8 Allergy status to other drugs, medicaments and biological substances; Z88.0 Allergy status to penicillin; Z79.899 Other long term (current) drug therapy
CPT/HCPCS: 84450; 85025; 85651; 96413; 96415; J7050; Q5103

== ENCOUNTER 2024-03-07 03:28 | Day surgery (SDC) | payer OTHER ==
[2024-03-07] MEDS ORDERED: DiphenhydrAMINE HCL 25 MG Cap PO SCH (07:00)
[2024-03-07] MEDS ORDERED: Acetaminophen 500 MG Tab PO SCH (07:00)
[2024-03-07 08:32] VITALS: BP 86/58
[2024-03-07] MEDS ORDERED: Infliximab-DYYB 700 MG in NS 250 ML IV SCH (08:45)
--- NOTE | 2024-03-07 09:15 | NUR ---
Pt declines pre meds.
[2024-03-07 09:58] LABS: BASOPHILS ABSOLUTE AUTO 0.05 K/mm3 (0.00-0.23); BASOPHILS PERCENT AUTO 1 % (0-2); EOSINOPHILS ABSOLUTE AUTO 0.17 K/mm3 (0.00-0.68); EOSINOPHILS PERCENT AUTO 3 % (0-6); Hematocrit 40.5 % (33.0-51.0); Hemoglobin 13.4 g/dL (11.5-16.0); IMMATURE GRAN ABSOLUTE AUTO 0.03 K/mm3 (0.00-0.10); IMMATURE GRAN PERCENT AUTO 0 % (0-1); LYMPHOCYTES PERCENT AUTO 47 % (21-46); MONOCYTES ABSOLUTE AUTO 0.72 K/mm3 (0.16-1.47); MONOCYTES PERCENT AUTO 11 % (4-13); Mean Corpuscular HGB 30.7 pg (26.0-34.0); Mean Corpuscular HGB Conc 33.1 g/dL (31.5-36.5); Mean Corpuscular Volume 93 fL (80-100); Mean Platelet Volume 9.1 fL (9.1-12.4); NEUTROPHILS ABSOLUTE AUTO 2.58 K/mm3 (1.96-9.15); NEUTROPHILS PERCENT AUTO 38 % (41-73); Platelet Count 318 K/mm3 (150-400); RDW Coefficient Variation 13.1 % (11.7-14.2); RDW Standard Deviation 44.5 fL (35.1-46.3); Red Blood Cell Count 4.37 M/mm3 (3.80-5.20); White Blood Cell Count 6.75 K/mm3 (4.00-11.30)
== END 2024-03-07 11:16 | disposition home or self-care (01) ==
LOC: ATC 03:28
PROVIDERS: Internal Medicine Rheumatology
DX: L40.50 Arthropathic psoriasis, unspecified (principal); I10 Essential (primary) hypertension; F32.9 Major depressive disorder, single episode, unspecified; E78.1 Pure hyperglyceridemia; K21.9 Gastro-esophageal reflux disease without esophagitis; J45.40 Moderate persistent asthma, uncomplicated; M79.7 Fibromyalgia; F41.1 Generalized anxiety disorder; Z79.82 Long term (current) use of aspirin; Z79.899 Other long term (current) drug therapy; Z88.0 Allergy status to penicillin; Z88.1 Allergy status to other antibiotic agents; Z88.8 Allergy status to other drugs, medicaments and biological substances; Z90.710 Acquired absence of both cervix and uterus
CPT/HCPCS: 84450; 85025; 85651; 96413; 96415; J7050; Q5103

== ENCOUNTER 2024-04-18 07:59 | Day surgery (SDC) | payer OTHER ==
[2024-04-18 09:40] VITALS: BP 138/71
[2024-04-18] MEDS ORDERED: Infliximab-DYYB 700 MG in NS 250 ML IV SCH (09:50)
[2024-04-18 10:31] LABS: BASOPHILS ABSOLUTE AUTO 0.08 K/mm3 (0.00-0.23); BASOPHILS PERCENT AUTO 1 % (0-2); EOSINOPHILS ABSOLUTE AUTO 0.16 K/mm3 (0.00-0.68); EOSINOPHILS PERCENT AUTO 2 % (0-6); Hemoglobin 14.4 g/dL (11.5-16.0); IMMATURE GRAN ABSOLUTE AUTO 0.03 K/mm3 (0.00-0.10); IMMATURE GRAN PERCENT AUTO 0 % (0-1); LYMPHOCYTES PERCENT AUTO 41 % (21-46); MONOCYTES ABSOLUTE AUTO 1.07 K/mm3 (0.16-1.47); MONOCYTES PERCENT AUTO 11 % (4-13); Mean Corpuscular HGB 30.4 pg (26.0-34.0); Mean Corpuscular HGB Conc 33.5 g/dL (31.5-36.5); Mean Corpuscular Volume 91 fL (80-100); Mean Platelet Volume 9.2 fL (9.1-12.4); NEUTROPHILS ABSOLUTE AUTO 4.53 K/mm3 (1.96-9.15); NEUTROPHILS PERCENT AUTO 46 % (41-73); Platelet Count 396 K/mm3 (150-400); RDW Coefficient Variation 12.9 % (11.7-14.2); RDW Standard Deviation 42.8 fL (35.1-46.3); Red Blood Cell Count 4.73 M/mm3 (3.80-5.20); White Blood Cell Count 9.97 K/mm3 (4.00-11.30)
== END 2024-04-18 12:43 | disposition home or self-care (01) ==
LOC: ATC 07:59
PROVIDERS: Internal Medicine Rheumatology
DX: L40.50 Arthropathic psoriasis, unspecified (principal); I10 Essential (primary) hypertension; F32.9 Major depressive disorder, single episode, unspecified; E78.1 Pure hyperglyceridemia; K21.9 Gastro-esophageal reflux disease without esophagitis; J45.40 Moderate persistent asthma, uncomplicated; F41.1 Generalized anxiety disorder; Z79.899 Other long term (current) drug therapy; Z88.0 Allergy status to penicillin; Z88.1 Allergy status to other antibiotic agents; Z88.8 Allergy status to other drugs, medicaments and biological substances
CPT/HCPCS: 84450; 85025; 85651; 96413; 96415; J7050; Q5103

== ENCOUNTER 2024-05-30 03:07 | Day surgery (SDC) | payer OTHER ==
[2024-05-30] MEDS ORDERED: Acetaminophen 500 MG Tab PO SCH (06:55)
[2024-05-30] MEDS ORDERED: DiphenhydrAMINE HCL 25 MG Cap PO SCH (06:55)
[2024-05-30 09:18] VITALS: BP 137/86
[2024-05-30] MEDS ORDERED: Infliximab-DYYB 700 MG in NS 250 ML IV SCH (09:35)
== END 2024-05-30 11:58 | disposition home or self-care (01) ==
LOC: ATC 03:07
DX: L40.50 Arthropathic psoriasis, unspecified (principal); I10 Essential (primary) hypertension; E78.1 Pure hyperglyceridemia; K21.9 Gastro-esophageal reflux disease without esophagitis; J45.40 Moderate persistent asthma, uncomplicated; Z79.82 Long term (current) use of aspirin; Z79.899 Other long term (current) drug therapy; Z88.0 Allergy status to penicillin; Z88.1 Allergy status to other antibiotic agents; Z88.8 Allergy status to other drugs, medicaments and biological substances; Z90.710 Acquired absence of both cervix and uterus
CPT/HCPCS: 84450; 96413; 96415; J7050; Q5103

== ENCOUNTER 2024-07-10 05:35 | Day surgery (SDC) | payer OTHER ==
[~2024-07-10] VITALS: Wt 88.9 kg
[2024-07-10 09:25] VITALS: BP 108/58
[2024-07-10] MEDS ORDERED: Infliximab-DYYB 700 MG in NS 250 ML IV SCH (09:30)
[2024-07-10 09:59] LABS: BASOPHILS ABSOLUTE AUTO 0.08 K/mm3 (0.00-0.23); BASOPHILS PERCENT AUTO 1 % (0-2); EOSINOPHILS ABSOLUTE AUTO 0.21 K/mm3 (0.00-0.68); EOSINOPHILS PERCENT AUTO 3 % (0-6); Hematocrit 39.3 % (33.0-51.0); Hemoglobin 12.7 g/dL (11.5-16.0); IMMATURE GRAN ABSOLUTE AUTO 0.03 K/mm3 (0.00-0.10); IMMATURE GRAN PERCENT AUTO 0 % (0-1); LYMPHOCYTES ABSOLUTE AUTO 3.97 K/mm3 (0.84-5.20); LYMPHOCYTES PERCENT AUTO 51 % (21-46); MONOCYTES PERCENT AUTO 13 % (4-13); Mean Corpuscular HGB 30.5 pg (26.0-34.0); Mean Corpuscular HGB Conc 32.3 g/dL (31.5-36.5); Mean Corpuscular Volume 95 fL (80-100); Mean Platelet Volume 9.3 fL (9.1-12.4); NEUTROPHILS ABSOLUTE AUTO 2.51 K/mm3 (1.96-9.15); NEUTROPHILS PERCENT AUTO 32 % (41-73); Platelet Count 334 K/mm3 (150-400); RDW Coefficient Variation 13.3 % (11.7-14.2); RDW Standard Deviation 46.5 fL (35.1-46.3); Red Blood Cell Count 4.16 M/mm3 (3.80-5.20)
== END 2024-07-10 11:50 | disposition home or self-care (01) ==
LOC: ATC 05:35
PROVIDERS: Internal Medicine Rheumatology
DX: L40.50 Arthropathic psoriasis, unspecified (principal); F90.9 Attention-deficit hyperactivity disorder, unspecified type; Z88.0 Allergy status to penicillin; Z88.8 Allergy status to other drugs, medicaments and biological substances
CPT/HCPCS: 84450; 85025; 85651; 96413; 96415; J7050; Q5103

== ENCOUNTER → 2025-01-04 | Outpatient (CLI) | payer OTHER ==
[2025-01-04 17:58] LABS: BASOPHILS ABSOLUTE AUTO 0.08 K/mm3 (0.00-0.23); BASOPHILS PERCENT AUTO 1 % (0-2); EOSINOPHILS ABSOLUTE AUTO 0.30 K/mm3 (0.00-0.68); EOSINOPHILS PERCENT AUTO 3 % (0-6); Hematocrit 41.2 % (33.0-51.0); Hemoglobin 13.1 g/dL (11.5-16.0); IMMATURE GRAN ABSOLUTE AUTO 0.04 K/mm3 (0.00-0.10); IMMATURE GRAN PERCENT AUTO 0 % (0-1); LYMPHOCYTES ABSOLUTE AUTO 4.16 K/mm3 (0.84-5.20); LYMPHOCYTES PERCENT AUTO 36 % (21-46); MONOCYTES ABSOLUTE AUTO 0.95 K/mm3 (0.16-1.47); MONOCYTES PERCENT AUTO 8 % (4-13); Mean Corpuscular HGB Conc 31.8 g/dL (31.5-36.5); Mean Corpuscular Volume 94 fL (80-100); NEUTROPHILS ABSOLUTE AUTO 6.16 K/mm3 (1.96-9.15); NEUTROPHILS PERCENT AUTO 53 % (41-73); NRBC ABSOLUTE 0.00 K/mm3 (0.00-0.02); NRBC Auto 0.0 /100 WBC (0.0-0.2); Platelet Count 367 K/mm3 (150-400); RDW Coefficient Variation 13.5 % (11.7-14.2); RDW Standard Deviation 45.8 fL (35.1-46.3)
[2025-01-04 19:14] LABS: Alanine Aminotransfer (ALT/SGP 31 U/L (12-78); Albumin, Blood 3.8 g/dL (3.4-5.0); Albumin/Globulin Ratio 1.0 (0.8-1.8); Anion Gap 9 mmol/L (3-11); Aspartate Aminotrans (AST/SGOT 20 U/L (12-37); Bilirubin, Total 0.3 mg/dL (0.1-1.0); Blood Urea Nitrogen 11 mg/dL (8-24); CHOL/HDL RATIO 4.4; CO2, Blood 29 mmol/L (21-32); Calcium, Blood 9.1 mg/dL (8.5-10.1); Chloride, Blood 104 mmol/L (98-108); Cholesterol 202 mg/dL (50-200); Creatinine, Blood 0.76 mg/dL (0.40-1.00); Globulin, Blood 3.8 g/dL (2.2-4.0); Glucose, Blood 107 mg/dL (70-99); HDL Cholesterol 46 mg/dL (>39); LDL/HDL RATIO 2.7; Low Density Lipoprotein Chol 124 mg/dL (0-110); Potassium, Blood 3.9 mmol/L (3.5-5.5); Sodium, Blood 138 mmol/L (136-145); Thyroid Stimulating Hormone 1.060 uIU/mL (0.360-4.800); Total Protein, Blood 7.6 g/dL (6.4-8.2); Triglycerides 159 mg/dL (30-160); Very Low Density Lipoprot Chol 31 mg/dL (6-32)
== END | disposition home or self-care (01) ==
LOC: LAB 16:17 → LAB SHORT 16:17
PROVIDERS: Family Medicine
DX: Z51.81 Encounter for therapeutic drug level monitoring (principal); Z79.899 Other long term (current) drug therapy
CPT/HCPCS: 80053; 80061; 82306; 83036; 84443; 85025